=== PATIENT | female | born 1940 | race Caucasian/White ===

== ENCOUNTER 2017-12-06 18:48 | Observation (INO) | payer OTHER, SELFPAY ==
[2017-12-06 18:49] VITALS: BP 158/106; PULSE 72; RESP 15; TEMP 36.5; O2SAT 99; BMI 20.5
[2017-12-06 18:51] VITALS: PULSE 69; RESP 16; O2SAT 99
--- NOTE | 2017-12-06 18:53 | ED.RN ---
RN CALLED FOR EKG, NO OLD EKGS IN MUSE
[2017-12-06 19:10] VITALS: O2SAT 100
[2017-12-06] MEDS: Aspirin 81 MG TAB.CHEW 324 MG PO (19:20)
[2017-12-06] MEDS: 0.9% Normal Saline 1,000 ML 150 ML IV (19:21)
[2017-12-06 19:44] LABS: Absolute Lymphocyte Count 2.22 X10^3/ul (0.83-4.51); Absolute Neutrophil Count 2.7 X10^3/uL (2.0-7.7); Basophil# 0.02 X10^3/uL; Basophil% 0.3 % (0-1); Eosinophil# 0.12 X10^3/uL; Eosinophils% 2.1 % (0-5); Hematocrit 38.8 % (37-47); Hemoglobin 12.8 g/dl (12.0-15.0); Lymphocyte # 2.22 X10^3/ul (4.0); Lymphocyte % 38.5 % (19-41); Mean Corpuscular Hgb 31.9 pg (27.0-32.0); Mean Corpuscular Volume 96.8 fL (81-99); Mean Platelet Vol. 11.1 fl (6.2-12.0); Monocyte% 12.2 % (0-10); Neutrophil % 46.9 % (47-70); Platelet Count 211 K/mm3 (150-450); RBC Distribution Width CV 12.8 % (11.6-14.6); RBC Distribution Width SD 44.3 fl (35.1-43.9); Red Blood Count 4.01 M/mm3 (4.2-5.4); White Blood Count 5.8 K/mm3 (4.4-11.0)
[2017-12-06 19:45] LABS: Anion Gap 6 (5-15); BUN 25 mg/dL (7-18); BUN/Creat Ratio 27.7 RATIO (10-20); Calcium,Total 8.8 mg/dL (8.5-10.1); Chloride 100 mmol/L (98-107); EST Glomerular Filtration Rate 65 mL/min (>60); Est Glom Filt Rate - Afr Amer 78 mL/min (>60); Estimated Creatinine Clearance 49.12 ml/min; Glucose 91 mg/dL (74-106); Potassium 3.8 mmol/L (3.5-5.1); Sodium Level 138 mmol/L (136-145)
[2017-12-06 19:48] LABS: POSITIVE COUNT NO; POSITIVE DIFFERENTIAL NO; POSITIVE MORPHOLOGY NO
[2017-12-06 19:53] VITALS: BMI 20.5
--- NOTE | 2017-12-06 19:57 | ED.VISSUMM ---
- ER Visit Summary Date of Service: 12/06/17 Chief Complaint: Chest pain History of Present Illness: The patient is a [address] Sharma. She reports that she has chest pain that began approximately 2 months ago. It is an intermittent pain that is brought on by activity and resolves with rest. She uses mowing the yard as an example in her pain. She describes it as substernal pressure with radiation to her left arm. The pain is severe at worst and she is pain-free currently. She reports that associated with diaphoresis, shortness of breath, and lightheadedness. There is no associated nausea. Physical Examination: Vitals: Stable. Afebrile. General: Well-nourished and well-developed. Head: Normocephalic atraumatic. Neck: Supple, no lymphadenopathy. No JVD. Nontender. Cardiovascular: Regular rate and rhythm. 2 out of 6 systolic murmur. Respiratory: No respiratory distress. Clear to auscultation bilaterally. Abdominal: Soft, nontender, nondistended, normal bowel sounds. No guarding, rebound, or peritoneal signs. Back: Nontender. Extremities: Nontender, no edema. Skin: Normal color, no rash. Neurologic: Alert and oriented ?3. Cranial nerves II through XII are intact. Normal strength and sensation. Psych: Normal affect. Test Results: EKG is sinus at 68 with no acute changes. Troponins negative. Chem-7 is more for BUN of 25 and BUN/creatinine ratio 27.7. CBC is more for 7 neutrophils 47 monocytes of 12. Chest x-ray shows chronic changes and no acute disease. Emergency Department Course and Treatment: Patient was treated with aspirin. She is resting comfortably and has had no chest pain while here. Treatment Plan: Patient was discussed with Dr. Magana. She will be admitted to the hospital for further relation and treatment. Disposition: Admitted in stable condition. Impression: 1. Chest pain. 2. MORENA score of 2. This note was generated with [employer]* dictation software. It may contain incorrect words, spelling, and punctuation that were not noted in review of the chart prior to signing ED Disposition - Plan for ED Patient: Disposition: Acute Care Hospital [facility] Chief Complaint: Chest Pain
--- NOTE | 2017-12-06 20:18 | NURSING ---
Called [facility] charge nursejustin to send patient to the floor.
--- NOTE | 2017-12-06 20:35 | PCM.HP.STD ---
Problem List (1) Atypical chest pain Status: Acute (2) Hypertension Status: Chronic History of Present Illness Date of Admission: 12/06/17 Chief Complaint: Chest pain for last 2 months The patient is a 77 year old F with history of hypertension, on HCTZ came to ER with progressively getting worse chest pain associated with shortness of breath for last 2 months. She describes chest pain as midsternal, feeling like heaviness/tightness with radiation to left arm, mainly precipitated by exertion like mowing lawn and relieved with rest. She sometimes also get chest pain at rest like 3 days ago. Chest pain is getting more frequent and lasting longer last last 2 months but no incident is lasted more than 5 minutes. She also complained of diaphoresis, palpitation and mild dizziness during episodes. She had a stress and many years ago and was negative. She never had a heart cath, denies coronary artery disease, arrhythmia or missed heartbeat. In ED EKG shows normal sinus rhythm at 68 bpm with T inversion in V1. She has history of coronary artery disease in both parents who developed after 55 years of age. [] Past Medical History Past Medical History (Chronic Problems): Chronic Problems Hypertension (Chronic) Allergies No Known Allergies Allergy (Verified 12/06/17 18:49) Home Medications: Ambulatory Orders Medication Instructions Recorded ALPRAZolam [Xanax] 0.125 mg PO PRN PRN 12/06/17 Hydrochlorothiazide [Hctz] 12.5 mg PO DAILY 12/06/17 Smoking Status: Never smoker Review of Systems Constitutional: Denies: Chills, Fever, Weight Change HEENT: Denies: Head Aches, Sinus Congestion, Sinus Drainage Cardiovascular: Reports: Chest Pain, Chest Pressure, Palpitations Respiratory: Reports: Shortness of breath upon exertion. Denies: Cough, Shortness of breath at rest, Sputum production Gastrointestinal: Denies: Abdominal Pain, Nausea, Vomiting Genitourinary: Denies: Dysuria Musculoskeletal: Denies: Joint Pain, Joint Tenderness Skin: Denies: Rash, Wounds Neurological: Denies: Numbness, Tingling, Focal weakness Psychiatric: Reports: Anxiety. Denies: Depression, Homicidal Ideations, Suicidal Ideations Hematologic/ Lymphatic: Denies: Easy Bruising, Easy Bleeding VTE Information - Inpt Only VTE Present on Admission: No VTE Mechan Device Prophylaxis: None VTE Pharm Prophylaxis ordered?: Yes Patient Problems: Active and Suspected Problems Atypical chest pain (Acute) - Physical Exam General: Alert, Oriented x3, Cooperative HEENT: Atraumatic, PERRLA, EOMI, Normocephalic Neck: Supple, No JVD, Negative Carotid Bruits Lungs: Clear to auscultation, Normal air movement, No rhonchi, No wheeze, No rales Cardiovascular: Regular rate, Regular Rhythm, Normal S1, Normal S2, No murmurs Abdomen: Bowel Sounds Present, Soft, Non Tender, Non-Distended Extremities: Capillary Refill Less than 3 Seconds, Edema Skin: No rashes, No breakdown Musculoskeletal: No Tenderness to Palpation of Joints or Extremities Neurological: Cranial nerves II-XII grossly intact Psych/Mental Status: Normal Affect, Appropriate Vital Signs Temp Pulse Resp BP Pulse Ox 97.7 F L 69 16 158/106 H 100 12/06/17 18:49 12/06/17 18:51 12/06/17 18:51 12/06/17 18:49 12/06/17 19:10 Assessment/Plan All Active Problems Atypical chest pain (Acute) he patient is a 77 year old F with history of hypertension, on HCTZ came to ER with progressively getting worse chest pain associated with shortness of breath for last 2 months. She describes chest pain as midsternal, feeling like heaviness/tightness with radiation to left arm, mainly precipitated by exertion like mowing lawn and relieved with rest. She sometimes also get chest pain at rest like 3 days ago. Chest pain is getting more frequent and lasting longer last last 2 months but no incident is lasted more than 5 minutes. She also complained of diaphoresis, palpitation and mild dizziness during episodes. She had a stress and many years ago and was negative. She never had a heart cath, denies coronary artery disease, arrhythmia or missed heartbeat. In ED EKG shows normal sinus rhythm at 68 bpm with T inversion in V1. First troponin is negative. She has history of coronary artery disease in both parents who developed after 55 years of age. 1. Atypical chest pain with concern of angina pectoris: Patient is being admitted on PCU. MORENA score 2 out of 7. on ACS protocol with serial troponin enzymes and EKG. Fasting profile tomorrow a.m. Started on aspirin and a statin and lisinopril. Heart rate is controlled. If troponins negative, patient can go for treadmill nuclear stress test and patient informed that she can walk good on treadmill. If troponins are positive, consult cardiology for possibility of cardiac cath. 2. Hypertension: Patient is on HCTZ. Blood pressure still elevated 158/106, started on lisinopril 5 mg daily. Hold HCTZ if patient goes for cardiac cath. 3. Mild anxiety: Continue home dose of Xanax. DVT prophylaxis: On Lovenox 40 mg subcu daily. [] Laboratory Results 12/06/17 18:58: WBC 5.8, RBC 4.01 L, Hgb 12.8, Hct 38.8, MCV 96.8, MCH 31.9, MCHC 33.0, RDW 12.8, RDW Differential 44.3 H, Plt Count 211, MPV 11.1, Immature Gran % (Auto) 0.000, Neut % (Auto) 46.9 L, Lymph % (Auto) 38.5, [place] % (Auto) 12.2 H, Eos % (Auto) 2.1, Baso % (Auto) 0.3, Absolute Neuts (auto) 2.7, Absolute Lymphs (auto) 2.22, Total Counted Not Reportable 12/06/17 18:58: Sodium 138, Potassium 3.8, Chloride 100, Carbon Dioxide 32.0, Anion Gap 6, BUN 25 H, Creatinine 0.90, Estim Creat Clear Calc 49.12, Est GFR (MDRD) Af Amer 78, Est GFR (MDRD) Non-Af 65, BUN/Creatinine Ratio 27.7 H, Glucose 91, Calcium 8.8, Troponin I < 0.015 Clinical Impression(s) from Imaging Studies Chest X-Ray 12/06/17 19:10 IMPRESSION: Degenerative changes, as described above. No demonstrated acute cardiopulmonary process. Code Visit OBSV E&M: 81350 Initial observation care L3
[2017-12-06 21:00] VITALS: BP 158/82; PULSE 59; PULSE 60; RESP 18; TEMP 36.7; O2SAT 100
[2017-12-06 21:42] VITALS: BMI 21.1
[2017-12-06] MEDS: Atorvastatin Calcium 40 MG Tablet PO (22:22)
[2017-12-06] MEDS: Lisinopril 5 MG Tablet PO (22:22)
[2017-12-06] MEDS: 0.9% Normal Saline 1,000 ML 50 ML IV (22:22)
[2017-12-06] MEDS: 0.9% NaCl Peripheral Flush Adult/Peds IV (22:23)
--- NOTE | 2017-12-06 22:53 | PCM.CONS.C ---
Reason for Consult Date of Consultation: 12/06/17 Reason for Consultation: Chest tightness. History of Present Illness: The patient is a 77 year old F with no previous cardiac history other than mild hypertension who says that she has really not felt well for approximately 6-8 months. However over the last 2 months she has noticed that she has been getting increasingly tired. She is also noticed that whenever she mows her lawn she feels fatigued and she gets some chest discomfort. She describes this chest discomfort as a heaviness radiating to the left side of her arm as well as her left shoulder. She has had a few of these episodes over the last few days when she was at rest. She saw her primary physician who ordered an echocardiogram and was told that she had 2 mildly leaky valves. They suggested that she see a altitude chamber technician and she was scheduled to see the altitude chamber technician at the [facility] but on hearing the story they directed her to the hospital. She has not had any chest pain since she has been in the hospital. She says a day ago she was sitting at her kitchen table and she felt like she was going to pass out. She has not had any palpitations paroxysmal nocturnal dyspnea or pedal edema. [] Past Medical History Allergies/Adverse Reactions: Allergies No Known Allergies Allergy (Verified 12/06/17 18:49) Home Medications: Ambulatory Orders Medication Instructions Recorded ALPRAZolam [Xanax] 0.125 mg PO PRN PRN 12/06/17 Hydrochlorothiazide [Hctz] 12.5 mg PO DAILY 12/06/17 Past Medical History (Chronic Problems): Chronic Problems Hypertension (Chronic) Smoking Status: Never smoker Alcohol: None Drugs: None Review of Systems - Review of Systems General: Reports: Fatigue. Denies: Fever, Night Sweats Cardiovascular: Reports: Chest Discomfort, Chest Discomfort at Rest, Chest Discomfort with Exertion, Shortness of Breath with Exertion, Near Syncope. Denies: Shortness of Breath, Orthopnea, PND, Peripheral Edema, Palpitations, Lightheadedness, Dizziness, Syncope Respiratory: Denies: Cough, Sputum Production, Hemoptysis Gastrointestinal: Denies: Hematemesis, Hematochezia, Melena Genitourinary: Denies: Dysuria, Hematuria Skin: Denies: Rash Psychiatric: Reports: Anxiety Subjectve: Pleasant lady in no apparent distress lying in bed Objective: Vital Signs Temp Pulse Resp BP Pulse Ox 98.1 F 60 18 158/82 H 100 12/06/17 21:00 12/06/17 21:00 12/06/17 21:00 12/06/17 21:00 12/06/17 21:00 Oxygen Flow Rate (L/min) 2 Oxygen Delivery Method Room Air Weight: 126 lb 12.253 oz Body Mass Index (BMI) 21.1 General: Awake, Alert, Oriented x 3 HEENT: PERRL, EOMI, Sclera Non Icteric Neck: Supple, Good ROM, No Lymph Node Enlargement Lungs: Clear to auscultation Cardiovascular: Regular Rhythm, Normal S1, Normal S2, No Murmurs, No Rubs, No Gallops Vascular: No Carotid Bruits, Normal Femoral Pulses, Normal Radial Pulses, Normal Dorsalis Pedal Pulse, Normal Posterior Tibial Pulses Abdomen: Bowel Sounds Present, Soft, Non Tender, No HSM, No Organomegaly Extremities: No Cyanosis, No Clubbing, No edema Musculoskeletal: No Erythema Neurological: No Focal Motor or Sensory Deficit Rhythm: EKG: Normal sinus rhythm with a rate of 59 bpm and no acute changes Assessment/Plan 1. Unstable angina The patient presents with a history very concerning for unstable angina. The pain has been increasing in frequency and duration and she is also had some breast discomfort. Though her EKG appears to be unremarkable and her cardiac enzymes are normal I would strongly recommend that we pursue an invasive approach with a cardiac catheterization. This would be preferable to a stress test as she already exercises and gets this discomfort on a frequent basis when she is mowing her lawn. She is mildly hypertensive and this could potentially could be responsible for some of her symptomatology but the duration of her symptomatology is concerning as well as the rest discomfort and had near syncopal spell. I have explained the above to the family the risk benefits and alternatives they understand and agreed to proceed. Would recommend aspirin 81 mg a day Will load with Plavix 300 mg tonight and 75 mg daily Start low-dose beta-luis Start high intensity statin 2. Hypertension She does appear to be hypertensive and is already on a diuretic. Will recommend to the addition of the lisinopril 5 mg a day as well as the beta-luis. Thank you for allowing me to participate in the care of your patient. Please don't hesitate to call if any issues arise
[2017-12-06 23:00] VITALS: PULSE 63
[2017-12-06 23:25] VITALS: PULSE 62
[2017-12-06] MEDS: Metoprolol Tartrate 25 MG Tablet PO (23:25)
[2017-12-06] MEDS: Clopidogrel Bisulfate 300 MG Tablet PO (23:25)
[2017-12-07] VITALS (17 sets, daily range): BP systolic 95–135; BP diastolic 52–74; PULSE 39–57; RESP 13–17; TEMP 36.5–37.6; O2SAT 97–100
[2017-12-07 05:17] LABS: Bacteria 0 SEEN /hpf (None Seen); Mucous, Urine 0 SEEN /hpf (<or=2+); Red Blood Cells-Urine 0 SEEN /hpf (0-5); White Blood Cells 0 SEEN /hpf (0-5)
[2017-12-07 05:19] LABS: Color, Urine Straw (Yellow); Glucose, Dipstick Normal (Normal); Ketone-Dipstick Negative (Negative); Leukocyte Esterase-Dipstick Negative /ul (Negative); Nitrite-Dipstick Negative (Negative); Occult Blood-Urine 10 /ul (Negative); Protein-Dipstick Negative (Negative); Specific Gravity, Urine 1.005 (1.002-1.030); Urine Bilirubin Dipstick Negative (Negative); Urine Clarity Clear (Clear); Urine Urobilinogen Normal (Normal)
[2017-12-07 05:27] LABS: Squamous Epithelial Cells - UA 0-5 SEEN /hpf (5-10)
[2017-12-07 05:47] LABS: Absolute Lymphocyte Count 1.73 X10^3/ul (0.83-4.51); Absolute Neutrophil Count 2.3 X10^3/uL (2.0-7.7); Basophil# 0.02 X10^3/uL; Basophil% 0.4 % (0-1); Eosinophil# 0.13 X10^3/uL; Eosinophils% 2.9 % (0-5); Hematocrit 39.6 % (37-47); Hemoglobin 12.9 g/dl (12.0-15.0); Lymphocyte # 1.73 X10^3/ul (4.0); Lymphocyte % 38.3 % (19-41); Mean Corp Hgb Conc 32.6 g/gl (32-36); Mean Corpuscular Hgb 31.3 pg (27.0-32.0); Mean Corpuscular Volume 96.1 fL (81-99); Mean Platelet Vol. 10.6 fl (6.2-12.0); Monocyte# 0.39 X10^3/uL; Monocyte% 8.6 % (0-10); Neutrophil # 2.25 X10^3/uL (2.7-7.7); Neutrophil % 49.8 % (47-70); Platelet Count 204 K/mm3 (150-450); RBC Distribution Width CV 12.9 % (11.6-14.6); Red Blood Count 4.12 M/mm3 (4.2-5.4); White Blood Count 4.5 K/mm3 (4.4-11.0)
[2017-12-07 05:51] LABS: POSITIVE COUNT NO; POSITIVE DIFFERENTIAL NO; POSITIVE MORPHOLOGY NO
[2017-12-07 05:54] LABS: Prothrombin Time (Protime)PT. 13.5 SECONDS (11.7-14.9)
[2017-12-07 05:55] LABS: Partial Thromboplast Time 27.3 Seconds (24.1-36.2)
[2017-12-07 06:16] LABS: Anion Gap 9 (5-15); BNP,B-Type NATRIURETIC PEPTIDE 134.1 pg/mL (0-100); BUN 19 mg/dL (7-18); BUN/Creat Ratio 24.1 RATIO (10-20); Calcium,Total 8.4 mg/dL (8.5-10.1); Chloride 106 mmol/L (98-107); Cholesterol 194 mg/dL (200); Creatinine, Serum 0.79 mg/dL (0.55-1.02); EST Glomerular Filtration Rate 76 mL/min (>60); Est Glom Filt Rate - Afr Amer 92 mL/min (>60); Estimated Creatinine Clearance 43.74 ml/min; Glucose 84 mg/dL (74-106); High Density Lipoprotein 62 mg/dL; Potassium 3.8 mmol/L (3.5-5.1); Sodium Level 143 mmol/L (136-145); Thyroid Stim Hormone (TSH) 4.49 uIU/mL (0.358-3.74); Triglycerides 76 mg/dL; Very Low Density Lipoprotein 15 mg/dL (5-40)
[2017-12-07] MEDS: Lisinopril 5 MG Tablet PO (06:29)
[2017-12-07] MEDS: Aspirin E.C. 81 MG Tablet PO (06:30)
[2017-12-07] MEDS: Clopidogrel Bisulfate 75 MG Tablet PO (06:30)
--- NOTE | 2017-12-07 08:02 | PCM.PN.CARD ---
Subjectve: Patient seen and evaluated. Objective: Vital Signs Temp Pulse Resp BP Pulse Ox 98.8 F 52 L 16 135/74 H 99 12/07/17 06:25 12/07/17 07:15 12/07/17 06:25 12/07/17 06:25 12/07/17 06:25 Oxygen Flow Rate (L/min) 2 Oxygen Delivery Method Room Air Weight: 126 lb 12.253 oz Body Mass Index (BMI) 21.1 Intake and Output for Last 24 Hours 12/05/17 12/06/17 12/07/17 23:59 23:59 23:59 Intake Total 411 / 411 Balance 411 / 411 General: Awake, Alert, Oriented x 3 HEENT: PERRL, EOMI, Sclera Non Icteric Neck: Supple, Good ROM, No Lymph Node Enlargement Lungs: Clear to auscultation Cardiovascular: Regular Rhythm, Normal S1, Normal S2, No Murmurs, No Rubs, No Gallops Vascular: No Carotid Bruits, Normal Femoral Pulses, Normal Radial Pulses, Normal Dorsalis Pedal Pulse, Normal Posterior Tibial Pulses Abdomen: Bowel Sounds Present, Soft, Non Tender, No HSM, No Organomegaly Extremities: No Cyanosis, No Clubbing, No edema Neurological: No Focal Motor or Sensory Deficit 12/06/17 22:30: Troponin I < 0.015 12/06/17 23:35: Urine Color Straw, Urine Clarity Clear, Urine pH 7.0, Ur Specific [place] 1.005, Urine Protein Negative, Urine Glucose (UA) Normal, Urine Ketones Negative, Urine Occult Blood 10 H, Urine Nitrite Negative, Urine Bilirubin Negative, Urine Urobilinogen Normal, Ur Leukocyte Esterase Negative, Urine RBC 0 SEEN, Urine WBC 0 SEEN 12/07/17 00:34: Troponin I < 0.015 12/07/17 05:25: Sodium 143, Potassium 3.8, Chloride 106, Carbon Dioxide 28.0, Anion Gap 9, BUN 19 H, Creatinine 0.79, Est GFR (MDRD) Af Amer 92, Est GFR (MDRD) Non-Af 76, BUN/Creatinine Ratio 24.1 H, Glucose 84, Calcium 8.4 L, Triglycerides 76, Cholesterol 194, LDL Cholesterol 117, VLDL Cholesterol 15, HDL Cholesterol 62 12/07/17 05:25: B-Natriuretic Peptide 134.1 H 12/07/17 05:25: WBC 4.5, RBC 4.12 L, Hgb 12.9, Hct 39.6, MCV 96.1, MCH 31.3, MCHC 32.6, RDW 12.9, RDW Differential 45.0 H, Plt Count 204, MPV 10.6, Immature Gran % (Auto) 0.000, Neut % (Auto) 49.8, Lymph % (Auto) 38.3, [place] % (Auto) 8.6, Eos % (Auto) 2.9, Baso % (Auto) 0.4, Absolute Neuts (auto) 2.3, Total Counted Not Reportable 12/07/17 05:25: PT 13.5, INR 1.0, APTT 27.3 Rhythm: EKG: ECHO: Stress Test: Cardiac Cath: PCI: CT Surgery: Holter monitor: EPS: PPM: CXR: Chest CT Scan: Medical Necessity - Tobacco Use Smoking Status: Never smoker Assessment/Plan 1. Unstable angina The patient presents with a history very concerning for unstable angina. Patient underwent cardiac catheterization which demonstrated normal coronary arteries and preserved ejection fraction. It is therefore unlikely that her chest pain was secondary to obstructive coronary disease. In a difficult etiologies can be sought as an outpatient. 2. Hypertension She does appear to be hypertensive and is already on a diuretic. Will recommend to the addition of the lisinopril 5 mg a day . Thank you for allowing me to participate in the care of your patient. Please don't hesitate to call if any issues arise
--- NOTE | 2017-12-07 13:13 | PCM.DC ---
- Discharge Diagnoses Current Active Problems: Current Active and Chronic Problems Atypical chest pain (Acute) Hypertension (Chronic) You will use the following diet at home:: Cardiac Your food should be the consistency of: Regular Your liquids should be the consistency of: Regular/Thin Discharge Activity: Return to Normal Activity Call your doctor if you observe: Shortness of breath, Dizziness, Fainting spells, Chest pain, Increased palpitations (irregular heartbeat) Allergies/Adverse Reactions: Allergies No Known Allergies Allergy (Verified 12/06/17 18:49) Medications to take at Discharge ALPRAZolam [Xanax] 0.125 mg PO PRN PRN 12/06/17 Hydrochlorothiazide [Hctz] 12.5 mg PO DAILY 12/06/17 Aspirin E.C. [Ecotrin] 81 mg PO DAILY@0800 #30 tab 12/07/17 Atorvastatin Calcium [Lipitor] 40 mg PO QHS #30 tab 12/07/17 Lisinopril [Zestril] 5 mg PO DAILY #30 tab 12/07/17 The following prescriptions were given: Aspirin E.C. [Ecotrin] 81 mg PO DAILY@0800 #30 tab Atorvastatin Calcium [Lipitor] 40 mg PO QHS #30 tab Lisinopril [Zestril] 5 mg PO DAILY #30 tab Primary Care Physician: Darshan Sharma DO [Primary Care Provider] - Please follow up with your Primary Care Physician in: in 3-5 days Test Results: Test results from this visit will be discussed in further detail at your follow-up appointment, if applicable.
--- NOTE | 2017-12-07 13:14 | PCM.DC.SUM ---
Discharge Date and Diagnosis - Problem List Patient Problems: Active and Suspected Problems Atypical chest pain (Acute) Date of Admission: 12/06/17 Date of Discharge: 12/07/17 - Primary Discharge Diagnosis Active and Suspected Problems Atypical chest pain (Acute) - Secondary Discharge Diagnosis Chronic Problems Hypertension (Chronic) Hospital Course and Treatment Imaging Results: None Consults: Cardiology Procedures: Cardiac catheterization - CORONARY ANGIOGRAPHY DOMINANCE: Right Dominant LEFT HEART ASSESSMENT Left Ventricular Ejection Fraction: by LV Gram 60 % Normal Left Ventricular systolic function Normal Left Ventricular systolic function LEFT MAIN: Angiographically normal LEFT ANTERIOR DECENDING ARTERY: Angiographically normal CIRCUMFLEX ARTERY: Angiographically normal RIGHT CORONARY ARTERY: Angiographically normal Summary of Care Provided: HPI: The patient is a 77 year old F with history of hypertension, on HCTZ came to ER with progressively getting worse chest pain associated with shortness of breath for last 2 months. She describes chest pain as midsternal, feeling like heaviness/tightness with radiation to left arm, mainly precipitated by exertion like mowing lawn and relieved with rest. She sometimes also get chest pain at rest like 3 days ago. Chest pain is getting more frequent and lasting longer last last 2 months but no incident is lasted more than 5 minutes. She also complained of diaphoresis, palpitation and mild dizziness during episodes. She had a stress and many years ago and was negative. She never had a heart cath, denies coronary artery disease, arrhythmia or missed heartbeat. In ED EKG shows normal sinus rhythm at 68 bpm with T inversion in V1. She has history of coronary artery disease in both parents who developed after 55 years of age. Vital Signs - 24 hr Temp Pulse Resp BP Pulse Ox 12/07/17 12:15 99.5 F H 53 L 16 95/58 L 99 12/07/17 11:15 98.0 F 53 L 17 126/69 H 98 12/07/17 10:58 57 L 12/07/17 10:15 98.0 F 53 L 17 126/69 H 98 12/07/17 09:45 97.8 F 48 L 16 118/59 L 98 12/07/17 09:33 39 L 12/07/17 09:15 97.7 F L 44 L 15 112/62 97 12/07/17 09:00 97.9 F 47 L 13 112/68 98 12/07/17 08:44 98.0 F 46 L 14 124/60 H 99 12/07/17 08:30 97.8 F 45 L 15 112/63 100 12/07/17 08:15 97.7 F L 51 L 14 115/68 98 12/07/17 07:15 52 L 12/07/17 06:25 98.8 F 48 L 16 135/74 H 99 12/07/17 03:00 98 F 50 L 16 113/69 98 12/06/17 23:25 62 12/06/17 23:00 63 12/06/17 21:00 98.1 F 59 L 18 158/82 H 100 12/06/17 19:10 100 12/06/17 18:51 69 16 99 12/06/17 18:49 97.7 F L 72 15 158/106 H 99 General: Alert, Oriented x3, Cooperative, No apparent distress HEENT: Atraumatic, PERRLA, EOMI, Normocephalic Oral: Moist Mucosa Neck: Supple, No JVD Lungs: Clear to auscultation, Normal air movement, No rhonchi, No wheeze, No rales Cardiovascular: Regular rate, Regular Rhythm, Normal S1, Normal S2, No murmurs Abdomen: Soft, Non Tender, Non-Distended, No Hepato-splenomegaly Extremities: No edema, Capillary Refill Less than 3 Seconds Skin: No rashes, No breakdown Psych/Mental Status: Normal Affect, Appropriate Hospital Course: 1. Unstable angina - Initial work up was negative with a normal EKG and a normal troponin. Given her age, her HTN and her worsening symptomatology, she was taken for cardiac cath which was completely normal. We optimized her risk factors with adding lisinopril, ASA, and lipitor be she wanted to go home and given the normal cath she was discharged. Her CXR was also normal and she does not have a history of smoking or asthma. 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 She will need close outpatient follow-up which was discussed. Discharge Activity: Return to Normal Activity Call your doctor if you observe: Shortness of breath, Dizziness, Fainting spells, Chest pain, Increased palpitations (irregular heartbeat) Home Medications: Medications to take at Discharge ALPRAZolam [Xanax] 0.125 mg PO PRN PRN 12/06/17 Hydrochlorothiazide [Hctz] 12.5 mg PO DAILY 12/06/17 Aspirin E.C. [Ecotrin] 81 mg PO DAILY@0800 #30 tab 12/07/17 Atorvastatin Calcium [Lipitor] 40 mg PO QHS #30 tab 12/07/17 Lisinopril [Zestril] 5 mg PO DAILY #30 tab 12/07/17 Following Prescrptions Were Given to Patient: Aspirin E.C. [Ecotrin] 81 mg PO DAILY@0800 #30 tab Atorvastatin Calcium [Lipitor] 40 mg PO QHS #30 tab Lisinopril [Zestril] 5 mg PO DAILY #30 tab Primary Care Physician: Darshan Sharma DO [Primary Care Provider] - Please follow up with your Primary Care Physician in: in 3-5 days Disposition: Home Minutes spent on discharge:: 35 Patient Condition:: Good Medical Necessity - Tobacco Use Smoking Status: Never smoker Meaningful Use Info Meaningful Use Diagnoses (Choose all that apply): None applicable Code Visit Inpatient E&M: 66356 Disch Hosp
--- NOTE | 2017-12-07 13:37 | NURSING ---
Ambulated patient to and around hallway following bedrest without complication. Upon returning to the room patient became very dizzy. VSS. DELEON notified.
--- NOTE | 2017-12-07 14:00 | CHAPLAIN ---
Type of Pastoral Visit _x__ Initial Visit ___ Follow-up Visit ___ On-call Visit ___ General Patient Visit ___ Spiritual Assessment ___ Family Conference ___ Bereavement ___ Rapid Response ___ Code Blue ___ Other (describe below) Pastoral Care Referral From _x__ Patient ___ Family ___ Nurse ___ Physician ___ Cook Fish Eggs ___ Hydraulic Blocker ___ Other (describe below) Sacrament/Intervention _x__ Active listening ___ Anointing ___ Quaker ___ Bereavement ___ Communion ___ Gisselle exploration ___ ___ Life review _x__ Prayer ___ Reconciliation ___ Sacrament of Sick _x__ Supportive presence ___ Wedding ___ Other (describe below) Pastoral Comments patient says she has had good news so far among the testing done; spouse and daughter are with pt; pt says that a prayer would be appreciated
== END 2017-12-07 08:01 | disposition home or self-care (01) ==
LOC: ED 19:42 → PCU 20:15
PROVIDERS: Internal Medicine Cardiovascular Disease; Admitting Provider Internal Medicine; Emergency Provider Emergency Medicine; Family Provider Family Medicine; PCP Family Medicine; Visit Provider Family Medicine
DX: I20.0 Unstable angina (principal); I10 Essential (primary) hypertension; R06.02 Shortness of breath; R42 Dizziness and giddiness; Z82.49 Family history of ischemic heart disease and other diseases of the circulatory system; Z79.899 Other long term (current) drug therapy; F41.9 Anxiety disorder, unspecified
CPT/HCPCS: 36415; 71045; 80048; 80061; 81001; 83880; 84443; 84484; 85025; 85610; 85730; 93005; 93458; 96360; 96361; 99152; 99218; 99283; J7030; A4216; C1769; G0378; Q9967

== ENCOUNTER → 2019-07-02 09:42 | Outpatient (CLI) | payer OTHER, SELFPAY ==
[2019-07-02 08:45] VITALS: BMI 21.4
[2019-07-02 10:47] LABS: Thyroid Stim Hormone (TSH) 2.63 uIU/mL (0.358-3.74)
== END ==
PROVIDERS: PCP Family Medicine; Referring Provider Internal Medicine Cardiovascular Disease; Visit Provider Internal Medicine Cardiovascular Disease
DX: I10 Essential (primary) hypertension (principal)
CPT/HCPCS: 36415; 84443

== ENCOUNTER 2020-05-22 10:33 | Inpatient (IN) | payer OTHER, SELFPAY ==
[2019-07-02 08:45] VITALS: BMI 21.4
[2020-05-22] VITALS (12 sets, daily range): BP systolic 141–165; BP diastolic 73–89; PULSE 50–85; RESP 15–20; TEMP 36.1–36.7; O2SAT 97–100; BMI 21.9; BMI 21.2; BMI 21.3
[2020-05-22 10:56] LABS: Bedside Glucose 83 mg/dL (70-110)
--- NOTE | 2020-05-22 11:04 | ED.DCSUM_ITS ---
History of Present Illness Chief Complaint: Neuro S/Sx Informant: Patient, Family Narrative: 79-year-old female presenting with chief complaint of left-sided facial droop and slurred speech, as well as difficulty ambulating and stating that she leans to the left. Patient states that she thinks she might of had a stroke 2 weeks ago, and at that time she had had left-sided facial droop which was more pronounced as well as left arm weakness in addition to the slurred speech. The facial droop has improved she says as well as the slurred speech although she states she has trouble swallowing her food sometimes. She states it feels like it gets stuck in her throat. Patient states that when the initial symptoms started she had fallen and hurt her left ribs. Patient states that she was not previously evaluated for this. She has no history of stroke. She states she has a history of anxiety and hypertension as well as leaky heart valves. Prior similar symptoms: No - Past Medical History (1) Essential hypertension Status: Chronic Past Medical History - Allergies and Home Meds Allergies/Adverse Reactions: Allergies No Known Allergies Allergy (Verified 05/22/20 10:36) Past Medical History: - - Anxiety Surgical History: noncontributory Lives: Spouse/ Significant Other Smoking Status: Never smoker Alcohol: None Drugs: None Review of Systems General: Denies: Chills, Fever, Sweats Eyes: Denies: Visual changes - bilaterally, Diplopia ENT: Denies: Rhinorrhea, Sore throat Cardiovascular: Denies: Chest pain, Palpitations Respiratory: Reports: - - Left-sided rib pain. Denies: Dyspnea, Cough Gastrointestinal: Denies: Abdominal pain, Nausea Genitourinary: Denies: Dysuria, Hematuria Musculoskeletal: Denies: Myalgias, Arthralgias Skin: Denies: Rash, Abscess Neurological: Reports: Parasthesia - Left upper extremity and left face., Left- sided facial droop, leaning to the left when ambulating Psych: Denies: Depression, Anxiety Endocrine: Denies: Polyuria, Polydipsia Physical Exam Vital Signs/Narrative: Vital Signs Temp Pulse Resp BP Pulse Ox 05/22/20 10:36 97.5 F L 54 L 16 147/82 H 98 Inital Vital Signs reviewed: Yes General: Well nourished, Well developed Head: Normocephalic, Atraumatic Eyes: Perrl, EOMI ENT: Moist mucous membranes, No rhinorrhea Cardiovascular: Regular rate, Regular rhythm Respiratory: No distress, CTA bilaterally, - - Tenderness to palpation of left ribs in the anterior axillary line. No crepitance, deformity. Extremities: Nontender, No edema Skin: Normal color, No rash Neurological: Alert, Oriented x3, Left side facial droop, - - Mild slurred speech. NIH of 2. 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 No bleeding is seen. Chronic involutional changes of the brain. 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 No bleeding is seen. Chronic involutional changes of the brain. N.B. : The above information has been verbally conveyed by Nikko Bobby MD to ZIGGY Renteria, on 05/22/2020 11:54:49 (ET). Electronically Signed: Nikko Bobby MD at 11:51 EST Tel , Service support , Ribs w/Chest X-Ray 05/22/20 12:00 IMPRESSION: RIBS: Questionable nondisplaced fractures of the very anterior aspect of the left 10th and 11th ribs. No pneumothorax is seen. CHEST: No active pulmonary disease. Electronically Signed: Nikko Bobby MD at 13:18 EST Tel , Service support , Laboratory Data 05/22/20 05/22/20 05/22/20 10:52 11:10 11:10 WBC 6.5 RBC 3.97 L Hgb 12.6 Hct 38.8 MCV 97.7 MCH 31.7 MCHC 32.5 RDW Std Deviation 46.5 H RDW Coeff of Haim 12.9 Plt Count 252 MPV 10.7 Immature Gran % (Auto) 0.300 Neut % (Auto) 56.0 Lymph % (Auto) 26.3 Rogers % (Auto) 13.7 H Eos % (Auto) 3.2 Baso % (Auto) 0.5 Absolute Neuts (auto) 3.6 Absolute Lymphs (auto) 1.71 Nucleated RBC % 0 PT 12.1 INR 0.9 APTT 24.9 Sodium Potassium Chloride Carbon Dioxide Anion Gap BUN Creatinine Estim Creat Clear Calc Est GFR (MDRD) Af Amer Est GFR (MDRD) Non-Af BUN/Creatinine Ratio Glucose Calcium Troponin I POC Glucose 83 05/22/20 11:10 WBC RBC Hgb Hct MCV MCH MCHC RDW Std Deviation RDW Coeff of Haim Plt Count MPV Immature Gran % (Auto) Neut % (Auto) Lymph % (Auto) Rogers % (Auto) Eos % (Auto) Baso % (Auto) Absolute Neuts (auto) Absolute Lymphs (auto) Nucleated RBC % PT INR APTT Sodium 139 Potassium 4.0 Chloride 104 Carbon Dioxide 33.0 H Anion Gap 2 L BUN 26 H Creatinine 0.83 Estim Creat Clear Calc 53.14 Est GFR (MDRD) Af Amer 86 Est GFR (MDRD) Non-Af 71 BUN/Creatinine Ratio 31.3 H Glucose 88 Calcium 8.7 Troponin I < 0.015 POC Glucose - Rhythm Strip Rhythm Strip: Sinus Rhythm Rate: 51 - EKG Initial EKG Interpretation: No Acute Injury Pattern, Sinus Bradycardia - Medical Decision Making 79-year-old female presenting with strokelike symptoms after about 2 weeks of symptoms. She complains of left facial droop and slurred speech difficulty ambulating and leaning to the left as well as difficulty swallowing. Patient states this is actually improved over the last couple of weeks but since the symptoms have been persistent. Patient has no history of CVA a. Patient has no history of A. fib. Patient has hypertension and anxiety. Initially when had the earlier symptoms she had fallen and hurt her left ribs. Patient had EKG which shows a sinus bradycardia at 51 bpm without signs of ischemic change as interpreted by myself. Patient did have rib series given her left rib pain and there appears to be fractures of the 10th and 11th ribs that are nondisplaced as interpreted by myself. Radiology does agree. Patient CT brain shows subacute infarct in the right periventricular region. Patient passed swallow eval and was given aspirin. Slight dehydration patient's lab work is unremarkable. Patient was discussed with hospitalist to be admitted for neurologic consult as well as MRI. Patient stable on transfer to the floor. Impression: 1. CVA ED Disposition - Plan for ED Patient:
--- NOTE | 2020-05-22 11:06 | EKG12_ITS ---
Test Reason : Blood Pressure : / mmHG Vent. Rate : 051 BPM Atrial Rate : 051 BPM P-R Int : 158 ms QRS Dur : 082 ms QT Int : 442 ms P-R-T Axes : 073 028 033 degrees QTc Int : 407 ms Sinus bradycardia Otherwise normal ECG Confirmed by SHERLY DELEON, SIDNEY ([id number]), copy editor IGNACIA HO ([id number]) on 05/25/2020 8:16:22 AM Referred By: ROSALEE Confirmed By:SIDNEY DUBOIS MD
--- NOTE | 2020-05-22 11:06 | CT_ITS ---
We are attempting to reach an attending provider to discuss findings. An addendum with communication details will be sent when the communication is complete. STUDY: CT HEAD STROKE PROTOCOL W/O CONTRAST INJECTION REASON FOR EXAM: Female, 79 years old. Neuro symptoms, feels off balance, hypotensive. RADIATION DOSAGE (If Supplied By Facility): CTDIvol = ( ) mGy, DLP = ( ) mGycm TECHNIQUE: Transaxial CT imaging of the brain was performed without administration of intravenous contrast material. Individualized dose optimization techniques were used for this CT. COMPARISON: No relevant priors. FINDINGS: Normal soft tissue structures. Normal calvarium. There is mild cerebral atrophy with widening of the extra-axial spaces and ventricular dilatation. There are areas of decreased attenuation within the white matter tracts of the supratentorial brain, consistent with microvascular disease changes. Subacute in the right periventricular region. Normal brainstem. Normal cerebellum. There is no intracranial hemorrhage. There are no findings of an acute ischemic infarction. Normal visualized paranasal sinuses. 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 No bleeding is seen. Chronic involutional changes of the brain. Electronically Signed: Nikko Bobby MD at 11:51 EST Tel , Service support ,
[2020-05-22 11:24] LABS: Absolute Lymphocyte Count 1.71 X10^3/uL (0.83-4.51); Absolute Neutrophil Count 3.6 X10^3/uL (2.0-7.7); Basophil# 0.03 X10^3/uL; Basophil% 0.5 % (0-1); Eosinophil# 0.21 X10^3/uL; Eosinophils% 3.2 % (0-5); Hematocrit 38.8 % (37-47); Hemoglobin 12.6 g/dL (12.0-15.0); Lymphocyte # 1.71 X10^3/ul (4.0); Lymphocyte % 26.3 % (19-41); Mean Corp Hgb Conc 32.5 g/dL (32-36); Mean Corpuscular Hgb 31.7 pg (27.0-32.0); Mean Corpuscular Volume 97.7 fL (81-99); Mean Platelet Vol. 10.7 fl (6.2-12.0); Monocyte# 0.89 X10^3/uL; Monocyte% 13.7 % (0-10); NRBC Flagged by Analyzer 0 % (0-5); Neutrophil # 3.63 X10^3/uL (2.7-7.7); Platelet Count 252 K/mm3 (150-450); RBC Distribution Width CV 12.9 % (11.6-14.6); RBC Distribution Width SD 46.5 fl (35.1-43.9); Red Blood Count 3.97 M/mm3 (4.2-5.4); White Blood Count 6.5 K/mm3 (4.4-11.0)
[2020-05-22 11:34] LABS: International Normalized Ratio 0.9; Prothrombin Time (Protime)PT. 12.1 SECONDS (11.7-14.9)
[2020-05-22 11:35] LABS: Partial Thromboplast Time 24.9 Seconds (24.1-36.2)
[2020-05-22 11:41] LABS: Anion Gap 2 (5-15); BUN 26 mg/dL (7-18); BUN/Creat Ratio 31.3 RATIO (10-20); Calcium,Total 8.7 mg/dL (8.5-10.1); Chloride 104 mmol/L (98-107); Creatinine, Serum 0.83 mg/dL (0.55-1.02); EST Glomerular Filtration Rate 71 mL/min (>60); Est Glom Filt Rate - Afr Amer 86 mL/min (>60); Estimated Creatinine Clearance 53.14 ml/min; Glucose 88 mg/dL (74-106); Sodium Level 139 mmol/L (136-145)
--- NOTE | 2020-05-22 12:00 | RAD_ITS ---
STUDY: X-RAY - UNILATERAL RIBS ( LEFT ) WITH CHEST REASON FOR EXAM: Female, 79 years old. Fell almost 2 weeks ago, left anterior rib pain under the breast TECHNIQUE - RIBS: 2 view(s) of the ribs. TECHNIQUE - CHEST: Single frontal view of the chest. COMPARISON: None. FINDINGS - RIBS: Questionable nondisplaced fracture of the very anterior aspect of the left 10th and 11th ribs. FINDINGS - CHEST: Small granulomas in the left midlung zone. No evidence of pneumothorax. No focal infiltrate is seen. There is no demonstrated pleural abnormality. Normal size heart. Normal mediastinum and guille. Normal visualized pulmonary arteries. There is atherosclerotic tortuosity of the aortic arch and descending thoracic aorta. Normal visualized thoracic spine. Side plate and screws in the proximal right humerus. There is no demonstrated abnormality of the visualized soft tissue structures of the upper abdomen. RAD/Ribs Uni Min 3V w/PA Chest IMPRESSION: RIBS: Questionable nondisplaced fractures of the very anterior aspect of the left 10th and 11th ribs. No pneumothorax is seen. CHEST: No active pulmonary disease. Electronically Signed: Nikko Bobby MD at 13:18 EST Tel , Service support ,
[2020-05-22] MEDS: Aspirin 81 MG TAB.CHEW 324 MG PO (13:10)
--- NOTE | 2020-05-22 13:52 | ECHOD_ITS ---
Reason For Study: TIA/CVA Procedure This was a 2D Doppler, Color Flow transthoracic echocardiogram. Contrast injection was performed. Exam performed portable in patient room. Left Ventricle Normal LV size. Left ventricular systolic function is normal. The estimated ejection fraction is 60 %. Stage 1 diastolic dysfunction. No regional wall motion abnormalities noted. Right Ventricle Normal RV size. Normal systolic function. Atria Normal left atrium. Normal right atrium. Bubble contrast study negative for right to left interatrial shunt. Mitral Valve Normal mitral valve. Tricuspid Valve Normal tricuspid valve. Mild (1+) tricuspid valve insufficiency. Pulmonary artery systolic pressure is 32 mmHg. Aortic Valve Normal aortic valve. Trisinus/trileaflet aortic valve. Pulmonic Valve Normal pulmonic valve. Great Vessels Normal aortic root. The pulmonary artery is normal size. Normal inferior vena cava. Pericardium/Pleural No pericardial effusion. Medication Performed a rapid injection of agitated mix of 9 cc saline and 1cc air to assess for atrial septal defect. MMode/2D Measurements & Calculations LVIDd: 4.5 cm IVSd: 1.1 cm LA dimension: 3.7 cm LVIDs: 2.3 cm LVPWd: 0.93 cm FS: 48.2 % LAV(MOD-bp): 56.7 ml LA A4 area: 18.7 cm2 RA A4 area: 15.5 cm2 LAV(MOD-bp) Indexed: 33.4 ml/m2 LAV(MOD-sp2): 54.4 ml LAV(MOD-sp4): 56.5 ml Time Measurements MV dec time: 0.24 sec Doppler Measurements & Calculations MV E max vicente: 67.7 cm/sec Lat Peak E' Vicente: 7.9 cm/sec Med Peak E' Vicente: 7.7 cm/sec MV A max vicente: 68.6 cm/sec E/E' lat: 8.6 E/E' med: 8.8 MV E/A: 0.99 MV V2 max: 75.1 cm/sec MV P1/2t max vicente: 75.1 cm/sec Ao V2 max: 139.5 cm/sec MV max P.3 mmHg MV P1/2t: 75.6 msec Ao max P.8 mmHg MV V2 mean: 42.1 cm/sec MV dec slope: 290.7 cm/sec2 MV mean P.82 mmHg MV V2 VTI: 24.6 cm MVA(P1/2t): 2.9 cm2 LV V1 max: 118.6 cm/sec PA V2 max: 130.0 cm/sec TR max vicente: 273.0 cm/sec LV V1 max P.6 mmHg TR max P.8 mmHg Interpretation Summary Normal LV size. Left ventricular systolic function is normal. The estimated ejection fraction is 60 %. Stage 1 diastolic dysfunction. Bubble contrast study negative for right to left interatrial shunt. Mild (1+) tricuspid valve insufficiency. Pulmonary artery systolic pressure is 32 mmHg. Ordering Physician: Michelle Hanna Referring Physician: MAHESH PIERCE Performed By: Ravi Thomas RCS
--- NOTE | 2020-05-22 14:19 | HP.PCM_ITS ---
<Peng Naik - Last Filed: 05/22/20 14:19> Problem List (1) CVA (cerebral vascular accident) Status: Acute (2) Essential hypertension Status: Chronic History of Present Illness Date of Admission: 05/22/20 Chief Complaint: strokelike symptoms The patient is a 79 year old F with pmhx of HTN and unclear valvular disease who presented to the ER with concern for stroke. The patients problems started about 2 weeks ago. The patient's found her at the bottom of the stairs. She had left arm and leg weakness, she also had slurred speech and left facial droop. The patient did not seek medical attention. Her symptoms did not improve, they went to see their primary care doctor who recommended they come to the emergency room. The patient notes that her slurred speech is somewhat improved, her left-sided weakness is ongoing, and she has significant facial droop. She has not had a stroke in the past, she has no history of atrial fibrillation. She follows Dr. Oneill for hypertension, reportedly she was worked up at the [facility] for valvular disease-she is not sure which. She does have a positive family history for TIA and heart disease. [] Past Medical History Past Medical History (Chronic Problems): Chronic Problems (Last Reviewed 07/02/19 @ 09:[address] Gee Oneill MD) Essential hypertension (Chronic) Medical History: Medical History (Last Reviewed 07/02/19 @ 09:[address] Gee Oneill MD) History of left heart catheterization (Resolved) Onset Date: ~12/07/17 Z98.890 Essential hypertension (Chronic) I10 Atypical chest pain (Acute) R07.89 Allergies No Known Allergies Allergy (Verified 05/22/20 10:36) Home Medications: Ambulatory Orders Medication Instructions Recorded ALPRAZolam [Xanax] 0.125 mg PO QHS PRN 12/06/17 hydrochlorothiazide 25 mg tablet 12.5 mg PO DAILY #90 tab 07/02/19 Aspirin E.C. [Ecotrin] 81 mg PO DAILY@0800 05/22/20 Metoprolol Succinate [Toprol Xl] 12.5 mg PO DAILY 05/22/20 Surgical History: Surgical History (Last Reviewed 07/02/19 @ 09:[address] Gee Oneill MD) H/O: hysterectomy Z90.710 History of dilatation and curettage Z98.890 Hx of appendectomy Z90.49 Surgical History: appendectomy, hysterectomy Psychiatric History: Anxiety IGNITION SPECIALIST History: No pertinent IGNITION SPECIALIST history Lives: Spouse/ Significant Other Smoking Status: Never smoker Alcohol: None Drugs: None - *Family History Maternal Family History: Family History (Last Reviewed 05/22/20 @ 14:25 by LOY Patterson) Mother Heart disease Father Heart disease Brother Heart disease History Items: - - TIA Paternal Family History: Family History (Last Reviewed 05/22/20 @ 14:25 by LOY Patterson) Mother Heart disease Father Heart disease Brother Heart disease Review of Systems Constitutional: Denies: Chills, Fever, Weight Change HEENT: Denies: Head Aches, Sinus Congestion, Sinus Drainage Cardiovascular: Denies: Chest Pain, Edema, Palpitations Respiratory: Denies: Cough, Shortness of breath at rest, Sputum production Gastrointestinal: Denies: Abdominal Pain, Nausea, Vomiting Genitourinary: Denies: Dysuria, Hesitancy, Urgency Musculoskeletal: Denies: Joint Pain, Joint Tenderness, Muscle pain Skin: Denies: Lesions, Rash, Wounds Neurological: Reports: Balance problems, Change in Speech, Slurred speech, Focal weakness, Incoordination. Denies: Numbness, Tingling Psychiatric: Denies: Anxiety, Depression, Homicidal Ideations, Suicidal Idea tions Hematologic/ Lymphatic: Denies: Easy Bruising, Easy Bleeding VTE Information - Inpt Only VTE Present on Admission: No VTE Mechan Device Prophylaxis: None VTE Pharm Prophylaxis ordered?: Yes Patient Problems: Active and Suspected Problems (Last Reviewed 07/02/19 @ 09:[address] Gee Oneill MD) CVA (cerebral vascular accident) (Acute) - Physical Exam Vitals/I&O's: Vital Signs Temp Pulse Resp BP Pulse Ox 97.5 F L 55 L 16 148/75 H 100 05/22/20 14:03 05/22/20 14:03 05/22/20 14:03 05/22/20 14:03 05/22/20 14:03 Oxygen Delivery Method Room Air Weight: 135 lb 12.876 oz Body Mass Index (BMI) 21.9 Finger Stick Blood Glucose 83 General: Alert, Oriented x3, Cooperative HEENT: Atraumatic, PERRLA, EOMI, Normocephalic Neck: Supple, No JVD, Negative Carotid Bruits Lungs: Clear to auscultation, Normal air movement Cardiovascular: Regular rate, No murmurs Abdomen: Bowel Sounds Present, Soft, Non Tender Extremities: No edema, Capillary Refill Less than 3 Seconds Skin: No rashes, No breakdown Musculoskeletal: No Tenderness to Palpation of Joints or Extremities Neurological: Facial Droop - left, Slurred Speech Psych/Mental Status: Normal Affect, Appropriate, Alert and oriented to time, place, person, mood and affect Laboratory Results 05/22/20 10:52: POC Glucose 83 05/22/20 11:10: WBC 6.5, RBC 3.97 L, Hgb 12.6, Hct 38.8, MCV 97.7, MCH 31.7, MCHC 32.5, RDW Std Deviation 46.5 H, RDW Coeff of Haim 12.9, Plt Count 252, MPV 10.7, Immature Gran % (Auto) 0.300, Neut % (Auto) 56.0, Lymph % (Auto) 26.3, Barron % (Auto) 13.7 H, Eos % (Auto) 3.2, Baso % (Auto) 0.5, Absolute Neuts (auto) 3.6, Absolute Lymphs (auto) 1.71, Nucleated RBC % 0 05/22/20 11:10: PT 12.1, INR 0.9, APTT 24.9 05/22/20 11:10: Sodium 139, Potassium 4.0, Chloride 104, Carbon Dioxide 33.0 H, Anion Gap 2 L, BUN 26 H, Creatinine 0.83, Estim Creat Clear Calc 53.14, Est GFR (MDRD) Af Amer 86, Est GFR (MDRD) Non-Af 71, BUN/Creatinine Ratio 31.3 H, Glucose 88, Calcium 8.7, Troponin I < 0.015 Current Medications Acetaminophen (Acetaminophen 325 Mg Tablet) 650 mg PO Q6H PRN PRN PRN Reason: Pain Score 1-10/Temp > 100.7 F Al Hydroxide/Mg Hydroxide (Mag Hydrox/Al Hydrox/Simeth 30 Ml Udc) 30 ml PO Q6H PRN PRN PRN Reason: Gastric Burning Albuterol Sulfate (Albuterol 2.5 Mg/3 Ml Vial.Neb.) 2.5 mg INHALATION Q2H PRN PRN PRN Reason: SOB/Wheezing Aspirin (Aspirin 81 Mg Tab.Chew) 81 mg PO DAILY@0800 ROSANNE Atorvastatin Calcium (Atorvastatin Calcium 80 Mg Tablet) 80 mg PO QHS ROSANNE Famotidine (Famotidine 20 Mg Tablet) 20 mg PO BID ROSANNE Labetalol HCl (Labetalol (Prefilled) 20 Mg/4 Ml) 10 - 20 mg IV Q10M PRN PRN PRN Reason: to Maintain BP Goals Magnesium Hydroxide (Magnesium Hydroxide 30 Ml Udc) 30 ml PO DAILY PRN PRN PRN Reason: Constipation Metoprolol Succinate (Metoprolol(Xl)Succ 25 Mg Tablet) 25 mg PO DAILY ROSANNE Ondansetron HCl (Ondansetron 4 Mg/2 Ml Vial) 4 mg IV Q8H PRN PRN PRN Reason: NAUSEA/VOMITING Assessment/Plan All Active Problems (Last Reviewed 07/02/19 @ 09:[address] Gee Oneill MD) CVA (cerebral vascular accident) (Acute) History of left heart catheterization (Resolved ~12/07/17) Atypical chest pain (Acute) 1. CVA - CT brain shows subacute infarct. Symptoms started 2 weeks ago. Obtain MRI brain, MRA head and neck, echocardiogram. Obtain PT OT ST evals. Start aspirin and statin. Maintain on telemetry. 2. HTN - hold orals for permissive htn, also of note, pts blood pressure has been running low - pt checks at home - for example 80s/20s 3. Hx unclear valvular disorder - worked up at [facility] in past - will obtain echo for stroke workup. DVT ppx: lovenox DC planning: PTOT evals. Initially had a fall, has poor gait, may need further therapy at discharge. This patient was seen by Peng Naik PA-C under the supervision of Doctor Cyndi. <Michelle Hanna - Last Filed: 05/22/20 18:37> History of Present Illness The patient is a 79 year old F [] Past Medical History Medical History: Medical History (Last Reviewed 07/02/19 @ 09:[address] Gee Oneill MD) History of left heart catheterization (Resolved) Onset Date: ~12/07/17 Z98.890 Essential hypertension (Chronic) I10 Atypical chest pain (Acute) R07.89 Allergies No Known Allergies Allergy (Verified 05/22/20 10:36) Surgical History: Surgical History (Last Reviewed 07/02/19 @ 09:[address] Gee Oneill MD) H/O: hysterectomy Z90.710 History of dilatation and curettage Z98.890 Hx of appendectomy Z90.49 - *Family History Maternal Family History: Family History (Last Reviewed 05/22/20 @ 14:25 by LOY Patterson) Mother Heart disease Father Heart disease Brother Heart disease Paternal Family History: Family History (Last Reviewed 05/22/20 @ 14:25 by LOY Patterson) Mother Heart disease Father Heart disease Brother Heart disease - Physical Exam Vitals/I&O's: Vital Signs Temp Pulse Resp BP Pulse Ox 97.5 F L 55 L 16 148/75 H 100 05/22/20 14:03 05/22/20 14:03 05/22/20 14:03 05/22/20 14:03 05/22/20 14:03 Oxygen Delivery Method Room Air Weight: 60 kg Body Mass Index (BMI) 21.2 Finger Stick Blood Glucose 83 Laboratory Results 05/22/20 10:52: POC Glucose 83 05/22/20 11:10: WBC 6.5, RBC 3.97 L, Hgb 12.6, Hct 38.8, MCV 97.7, MCH 31.7, MCHC 32.5, RDW Std Deviation 46.5 H, RDW Coeff of Haim 12.9, Plt Count 252, MPV 10.7, Immature Gran % (Auto) 0.300, Neut % (Auto) 56.0, Lymph % (Auto) 26.3, Barron % (Auto) 13.7 H, Eos % (Auto) 3.2, Baso % (Auto) 0.5, Absolute Neuts (auto) 3.6, Absolute Lymphs (auto) 1.71, Nucleated RBC % 0 05/22/20 11:10: PT 12.1, INR 0.9, APTT 24.9 05/22/20 11:10: Sodium 139, Potassium 4.0, Chloride 104, Carbon Dioxide 33.0 H, Anion Gap 2 L, BUN 26 H, Creatinine 0.83, Estim Creat Clear Calc 53.14, Est GFR (MDRD) Af Amer 86, Est GFR (MDRD) Non-Af 71, BUN/Creatinine Ratio 31.3 H, Glucose 88, Calcium 8.7, Troponin I < 0.015 Current Medications Acetaminophen (Acetaminophen 325 Mg Tablet) 650 mg PO Q6H PRN PRN PRN Reason: Pain Score 1-10/Temp > 100.7 F Al Hydroxide/Mg Hydroxide (Mag Hydrox/Al Hydrox/Simeth 30 Ml Udc) 30 ml PO Q6H PRN PRN PRN Reason: Gastric Burning Albuterol Sulfate (Albuterol 2.5 Mg/3 Ml Vial.Neb.) 2.5 mg INHALATION Q2H PRN PRN PRN Reason: SOB/Wheezing Aspirin (Aspirin 81 Mg Tab.Chew) 81 mg PO DAILY@0800 ROSANNE Atorvastatin Calcium (Atorvastatin Calcium 80 Mg Tablet) 80 mg PO QHS ROSANNE Famotidine (Famotidine 20 Mg Tablet) 20 mg PO BID ROSANNE Labetalol HCl (Labetalol (Prefilled) 20 Mg/4 Ml) 10 - 20 mg IV Q10M PRN PRN PRN Reason: to Maintain BP Goals Magnesium Hydroxide (Magnesium Hydroxide 30 Ml Udc) 30 ml PO DAILY PRN PRN PRN Reason: Constipation Metoprolol Succinate (Metoprolol(Xl)Succ 25 Mg Tablet) 25 mg PO DAILY ROSANNE Ondansetron HCl (Ondansetron 4 Mg/2 Ml Vial) 4 mg IV Q8H PRN PRN PRN Reason: NAUSEA/VOMITING Sodium Chloride (0.9% Saline Lock 10 Ml Syringe) 10 - 40 ml IV UD PRN PRN Reason: SALINE FLUSH Assessment/Plan This patient was seen in conjunction with LOY Amezcua. I have independently interviewed and examined the patient and reviewed pertinent historical, laboratory, and other data. Please refer to LOY Amezcua note for his patient's presentation, findings, and recommendations. I have reviewed and his note and concur with his documentation 79 y/o with PMHx of Hypertension, valvular disease who comes in with a 2 week history of left sided weakness and slurred speech. Patient did not seek care until now. Ct brain showed subacute infarct in right periventricular region. Rib X-ray showed questionable nondisplaced fractures of anterior left 10th and 11th ribs Vitals reviewed - stable Physical Exam: Gen: Comfortable, not pale, not jaundiced CVS:HS I +II, regular, no murmurs RESP: Diminished at lung bases GI: BS present and normal, soft, nontender, no palpable organs EXT:No edema COMMERCIAL ADMINISTRATOR: AO x3, power is 5/5, normal tone, CNII-XII intact ASSESSMENT: 1. Acute/subacute CVA 2. Hypertension 3. Left anterior 10th and 11th ribs 4. Valvular heart disease Plan: Stroke work-up - MRI brain, MRA head and neck, lipid profile, HgbA1c SOC consult Aspirin 81 mg daily, Atorvastatin 40mg daily Check lipid profile, HgBA1c Inpatient E&M: 46518 Init Hosp L3
--- NOTE | 2020-05-22 14:39 | MRI_ITS ---
STUDY: MRA OF THE HEAD WITHOUT CONTRAST REASON FOR EXAM: Female, 79 years old. Facial droop slurred speech for 2 weeks TECHNIQUE: 3-D [id number] (TOF) imaging was performed with MIPs. The study was performed unenhanced. COMPARISON: None. FINDINGS: Bilateral base of skull carotids, bifurcations, anterior and middle cerebral arteries and proximal branches are patent. Posterior communicating arteries are moderate bilaterally Posterior cerebral arteries and superior cerebellar arteries and proximal branches are patent. Vertebral arteries, basilar arteries are patent. There is a right deep frontal white matter infarct. MRI/MRA Head ONLY without Contrast IMPRESSION: 1. Unremarkable nulato of Miguel and proximal branches. No large vessel occlusion. Electronically Signed: Ceci Puente MD at 17:54 EST Tel , Service support ,
--- NOTE | 2020-05-22 14:39 | MRI_ITS ---
STUDY: MRA NECK WITH AND WITHOUT CONTRAST REASON FOR EXAM: Female, 79 years old. facial droop, slurred speech x 2 weeks TECHNIQUE: 3-D [id number] (TOF) imaging was performed in an 1.5 T MRI scanner. 12CC DOTAREM IV was administered for the contrast enhanced images. COMPARISON: None. FINDINGS: RIGHT CAROTID ARTERIES: Normal right common carotid artery (CCA). Normal right common carotid bulb. Normal origin of the right internal carotid (ICA) artery without a hemodynamically significant stenosis. There is atherosclerotic tortuous elongation of the cervical portion of the right internal carotid artery. Normal origin of the right external carotid artery (ECA). LEFT CAROTID ARTERIES: Normal left common carotid artery (CCA). Normal left common carotid bulb. Normal origin of the left internal carotid (ICA) artery without a hemodynamically significant stenosis. There is atherosclerotic tortuous elongation of the cervical portion of the left internal carotid artery. Normal origin of the left external carotid artery (ECA). VERTEBRAL ARTERIES: Normal antegrade flow within the bilateral vertebral artery without a hemodynamically significant stenosis. MRI/MRA Neck WITH and W/O Contrast IMPRESSION: Normal bilateral cervical carotid and vertebral arteries. Electronically Signed: Yuri Blackwood MD at 17:38 EST , Service support ,
--- NOTE | 2020-05-22 14:40 | MRI_ITS ---
We are attempting to reach an attending provider to discuss findings. An addendum with communication details will be sent when the communication is complete. STUDY: MRI BRAIN WITHOUT CONTRAST REASON FOR EXAM: Female, 79 years old. Facial droop and slurred speech for 2 weeks TECHNIQUE: Standardized multiplanar fat and water weighted pulse sequences were obtained. COMPARISON: CT head earlier same day FINDINGS: There is a moderate extent deep right frontal white matter late acute/early subacute infarct, estimated at 5-10 days old. This corresponds with stated history. Appearance is concordant with CT. There is no hemorrhagic transformation. There is no other acute infarct. There are no extra parenchymal fluid collections, hydrocephalus or herniation. Major basal skull flow voids are intact. MRI/Brain without Contrast IMPRESSION: 1. Right deep frontal matter moderate extent late acute/early subacute infarct, MCA territory. 2. No hemorrhagic transformation. Electronically Signed: Ceci Puente MD at 17:53 EST Tel , Service support ,
[2020-05-22] MEDS: Acetaminophen 325 MG Tablet 650 MG PO (17:54)
[2020-05-22] MEDS: Famotidine 20 MG Tablet PO (22:10)
[2020-05-22] MEDS: Atorvastatin Calcium 80 MG Tablet PO (22:10)
[2020-05-22] MEDS: Enoxaparin 40 MG/0.4 ML Syringe SC (22:10)
[2020-05-23] VITALS (13 sets, daily range): BP systolic 111–145; BP diastolic 64–83; PULSE 49–97; RESP 16–20; TEMP 36.3–36.9; O2SAT 96–100; BMI 21.2
[2020-05-23 07:23] LABS: Absolute Lymphocyte Count 1.57 X10^3/uL (0.83-4.51); Absolute Neutrophil Count 3.2 X10^3/uL (2.0-7.7); Basophil# 0.04 X10^3/uL; Basophil% 0.7 % (0-1); Eosinophil# 0.19 X10^3/uL; Eosinophils% 3.4 % (0-5); Hematocrit 40.6 % (37-47); Hemoglobin 12.9 g/dL (12.0-15.0); Lymphocyte # 1.57 X10^3/ul (4.0); Lymphocyte % 27.9 % (19-41); Mean Corp Hgb Conc 31.8 g/dL (32-36); Mean Corpuscular Hgb 31.4 pg (27.0-32.0); Mean Corpuscular Volume 98.8 fL (81-99); Monocyte# 0.65 X10^3/uL; Monocyte% 11.5 % (0-10); NRBC Flagged by Analyzer 0 % (0-5); Neutrophil # 3.16 X10^3/uL (2.7-7.7); Neutrophil % 56.1 % (47-70); Platelet Count 194 K/mm3 (150-450); RBC Distribution Width SD 46.6 fl (35.1-43.9); Red Blood Count 4.11 M/mm3 (4.2-5.4); White Blood Count 5.6 K/mm3 (4.4-11.0)
--- NOTE | 2020-05-23 07:28 | PN_ITS ---
Patient Problems: Active and Suspected Problems (Last Reviewed 07/02/19 @ 09:[address] Gee Oneill MD) CVA (cerebral vascular accident) (Acute) Reason for Visit: Follow-up on acute CVA Subjective: Patient was seen and examined. She is eager to be discharged. Denies any worsening weakness or dizziness or tingling or numbness. Speech therapy had initially recommended patient to be n.p.o. but she declined and subsequently she is on a modified diet with aspiration precautions. She will be going for mod ified barium swallow. Vitals/I&O's: Vital Signs Temp Pulse Resp BP Pulse Ox 98.0 F 59 L 16 133/82 H 100 05/23/20 05:00 05/23/20 05:00 05/23/20 05:00 05/23/20 05:00 05/23/20 05:00 Oxygen Delivery Method Room Air Weight: 60 kg Body Mass Index (BMI) 21.2 Finger Stick Blood Glucose 83 Intake and Output for Last 24 Hours 05/21/20 05/22/20 05/23/20 23:59 23:59 23:59 Intake Total 480 / 480 120 / 120 Balance 480 / 480 120 / 120 General: Alert, Oriented x3, Cooperative, No apparent distress HEENT: Atraumatic, PERRLA, EOMI, Normocephalic Oral: Moist Mucosa Neck: Supple Lungs: Clear to auscultation, Normal air movement Cardiovascular: Regular rate, Regular Rhythm, Normal S1, Normal S2, No murmurs Abdomen: Bowel Sounds Present, Soft, Non Tender, Non-Distended, No Hepato- splenomegaly Extremities: No edema Skin: No rashes Musculoskeletal: No Tenderness to Palpation of Joints or Extremities Lymphatic: No Cervical, Supraclavicular, or Inguinal Adenopathy Neurological: Cranial nerves II-XII grossly intact, Neuro grossly intact Psych/Mental Status: Normal Affect, Appropriate Laboratory Results 05/22/20 10:52: POC Glucose 83 05/22/20 11:10: WBC 6.5, RBC 3.97 L, Hgb 12.6, Hct 38.8, MCV 97.7, MCH 31.7, MCHC 32.5, RDW Std Deviation 46.5 H, RDW Coeff of Haim 12.9, Plt Count 252, MPV 10.7, Immature Gran % (Auto) 0.300, Neut % (Auto) 56.0, Lymph % (Auto) 26.3, [place] % (Auto) 13.7 H, Eos % (Auto) 3.2, Baso % (Auto) 0.5, Absolute Neuts (auto) 3.6, Absolute Lymphs (auto) 1.71, Nucleated RBC % 0 05/22/20 11:10: PT 12.1, INR 0.9, APTT 24.9 05/22/20 11:10: Sodium 139, Potassium 4.0, Chloride 104, Carbon Dioxide 33.0 H, Anion Gap 2 L, BUN 26 H, Creatinine 0.83, Estim Creat Clear Calc 53.14, Est GFR (MDRD) Af Amer 86, Est GFR (MDRD) Non-Af 71, BUN/Creatinine Ratio 31.3 H, Glucose 88, Calcium 8.7, Troponin I < 0.015 05/23/20 05:40: WBC 5.6, RBC 4.11 L, Hgb 12.9, Hct 40.6, MCV 98.8, MCH 31.4, MCHC 31.8 L, RDW Std Deviation 46.6 H, RDW Coeff of Haim 13.0, Plt Count 194, MPV 12.0, Immature Gran % (Auto) 0.400, Neut % (Auto) 56.1, Lymph % (Auto) 27.9, [place] % (Auto) 11.5 H, Eos % (Auto) 3.4, Baso % (Auto) 0.7, Absolute Neuts (auto) 3.2, Absolute Lymphs (auto) 1.57, Nucleated RBC % 0 05/23/20 05:40: Sodium Pending, Potassium Pending, Chloride Pending, Carbon Dioxide Pending, Anion Gap Pending, BUN Pending, Creatinine Pending, Est GFR (MDRD) Af Amer Pending, Est GFR (MDRD) Non-Af Pending, BUN/Creatinine Ratio Pending, Glucose Pending, Calcium Pending, Ferritin Pending, Total Bilirubin Pending, AST Pending, ALT Pending, Alkaline Phosphatase Pending, Total Protein Pending, Albumin Pending, Triglycerides Pending, Cholesterol Pending, LDL Cholesterol Pending, VLDL Cholesterol Pending, HDL Cholesterol Pending Current Medications Acetaminophen (Acetaminophen 325 Mg Tablet) 650 mg PO Q6H PRN PRN PRN Reason: Pain Score 1-10/Temp > 100.7 F Last Admin: 05/22/20 17:54 Dose: 650 mg Documented by: Al Hydroxide/Mg Hydroxide (Mag Hydrox/Al Hydrox/Simeth 30 Ml Udc) 30 ml PO Q6H PRN PRN PRN Reason: Gastric Burning Albuterol Sulfate (Albuterol 2.5 Mg/3 Ml Vial.Neb.) 2.5 mg INHALATION Q2H PRN PRN PRN Reason: SOB/Wheezing Aspirin (Aspirin 81 Mg Tab.Chew) 81 mg PO DAILY@0800 [facility] Atorvastatin Calcium (Atorvastatin Calcium 80 Mg Tablet) 80 mg PO QHS [facility] Last Admin: 05/22/20 22:10 Dose: 80 mg Documented by: Enoxaparin Sodium (Enoxaparin 40 Mg/0.4 Ml Syringe) 40 mg SC DAILY@2200 [facility] Last Admin: 05/22/20 22:10 Dose: 40 mg Documented by: Famotidine (Famotidine 20 Mg Tablet) 20 mg PO BID [facility] Last Admin: 05/22/20 22:10 Dose: 20 mg Documented by: Ibuprofen (Ibuprofen 400 Mg Tablet) 400 mg PO Q6H PRN PRN PRN Reason: Pain 1-10 or Fever Labetalol HCl (Labetalol (Prefilled) 20 Mg/4 Ml) 10 - 20 mg IV Q10M PRN PRN PRN Reason: to Maintain BP Goals Magnesium Hydroxide (Magnesium Hydroxide 30 Ml Udc) 30 ml PO DAILY PRN PRN PRN Reason: Constipation Melatonin (Melatonin 3 Mg Tablet) 3 mg PO QHS [facility] Last Admin: 05/22/20 23:49 Dose: Not Given Documented by: Metoprolol Succinate (Metoprolol(Xl)Succ 25 Mg Tablet) 25 mg PO DAILY [facility] Ondansetron HCl (Ondansetron 4 Mg/2 Ml Vial) 4 mg IV Q8H PRN PRN PRN Reason: NAUSEA/VOMITING Sodium Chloride (0.9% Saline Lock 10 Ml Syringe) 10 - 40 ml IV UD PRN PRN Reason: SALINE FLUSH STROKE Vital Signs/Narrative: Vital Signs Temp Pulse Resp BP Pulse Ox 05/23/20 05:00 98.0 F 59 L 16 133/82 H 100 Medical Necessity - Tobacco Use Smoking Status: Never smoker Tobacco Use: Non-smoker Assessment/Plan All Active Problems (Last Reviewed 07/02/19 @ 09:[address] Gee Oneill MD) CVA (cerebral vascular accident) (Acute) History of left heart catheterization (Resolved ~12/07/17) Atypical chest pain (Acute) 1. Acute/subacute deep frontal matter moderate CVA- patient was symptomatic 2 weeks ago but did not seek help CTA of the head did not show any large vessel occlusion. Total cholesterol is 228, LDL 144, HDL 53. HgbA1c is pending. Currently on aspirin, atorvastatin 2. Hypertension, controlled, continue metoprolol 3. Left anterior 10th and 11th ribs, traumatic, status post fall Pain is fairly controlled, continue on Tylenol and Lidoderm patches 4. Valvular heart disease, 2D echo is pending 5. DVT PPx- Lovenox PA Inpatient E&M: 54591 Subs Hosp L2
[2020-05-23 07:55] LABS: AST(SGOT) 34 U/L (15-37); Alanine Aminotransfer ALT/SGPT 42 U/L (13-56); Albumin, Serum 3.2 g/dL (3.2-5.0); Alkaline Phosphatase 78 U/L (45-117); Anion Gap 5 (5-15); BUN 23 mg/dL (7-18); BUN/Creat Ratio 27.2 RATIO (10-20); Calcium,Total 8.8 mg/dL (8.5-10.1); Chloride 104 mmol/L (98-107); Cholesterol 228 mg/dL (200); Creatinine, Serum 0.84 mg/dL (0.55-1.02); EST Glomerular Filtration Rate 69 mL/min (>60); Est Glom Filt Rate - Afr Amer 84 mL/min (>60); Estimated Creatinine Clearance 52.51 ml/min; Ferritin 53 ng/mL (8-252); Globulin 3.2 g/dL (2.2-4.2); Glucose 75 mg/dL (74-106); High Density Lipoprotein 53 mg/dL; Protein, Total 6.4 g/dL (6.4-8.2); Sodium Level 138 mmol/L (136-145); Triglycerides 153 mg/dL; Very Low Density Lipoprotein 31 mg/dL (5-40)
[2020-05-23] MEDS: Aspirin 81 MG TAB.CHEW PO (08:20)
[2020-05-23] MEDS: Famotidine 20 MG Tablet PO ×2 (08:20→20:12)
--- NOTE | 2020-05-23 08:57 | TELEMED_ITS ---
[facility] Telemed has confirmed receipt of a request for visit. This document confirms receipt of the order initiating the consult. To find the results of the consultation, please view the patient's reports for the scanned Telemed Consult.
[2020-05-23] MEDS: Acetaminophen 325 MG Tablet 650 MG PO ×2 (13:56→20:11)
[2020-05-23 14:48] LABS: Hemoglobin A1c 5.4 % (3.8-5.6)
[2020-05-23] MEDS: Lidocaine 5% Patch 2 PATCH TOPICAL (16:18)
[2020-05-23] MEDS: Enoxaparin 40 MG/0.4 ML Syringe SC (20:11)
[2020-05-23] MEDS: Atorvastatin Calcium 80 MG Tablet PO (20:11)
[2020-05-23] MEDS: MELATONIN 3 MG TABLET PO (20:12)
[2020-05-24] VITALS (11 sets, daily range): BP systolic 129–161; BP diastolic 69–94; PULSE 51–70; RESP 16–18; TEMP 36.4–36.7; O2SAT 97–99
--- NOTE | 2020-05-24 05:38 | PCS.PANDOC ---
PANDEMIC DOCUMENTATION INITIATED: Date: 05/22/20 Time: 14:00
[2020-05-24] MEDS: Famotidine 20 MG Tablet PO ×2 (09:21→21:24)
[2020-05-24] MEDS: Metoprolol(XL)Succ 25 MG Tablet PO (09:21)
[2020-05-24] MEDS: Aspirin 81 MG TAB.CHEW PO (09:21)
--- NOTE | 2020-05-24 09:29 | CASEMGMT ---
SW completed a PHQ 9 with patient as she did have a Stroke. She scored a 6 which indicates mild Depression. She denied any need for counseling resources. Deja CRUZ MSW
--- NOTE | 2020-05-24 10:57 | CASEMGMT ---
ZIGGY MAC assessment: Face to Face with patient for initial transition planning/care coordination assessment. ZIGGY MAC introduced self and role at [facility], pt voices understanding and consents to assessment at this time. Pt is lying in bed in no distress at this time. Pt is A/Ox4 at this time and answers all questions appropriately at this time. Care providers, pharmacy, and demographics verified at this time. Presentation: My head does not feel right when I walk. Pt states she had a stroke last week but was not seen by healthcare. Pt also states her bp was low at home this time. Pt has a hx of 'leaky valve.' Admitting dx: CVA PCP: Zachary Specialists: Mai, cardio Preferred Pharmacy[place] [facility] [place] [facility] [place]: Self [place] Living Will/HPOA: Pt states does not have LW/HPOA and declines AD info at this time. LNOK: Marcial Meade, ; Puja Meade, daughter Living Arrangements: Pt states lives in 1 story home with with a couple steps in and states no concerns at home at this time. Pt states is independent with ADL's. Transportation: Pt states no transportation concerns at this time. DME/HHC: Pt states no current DME but her son-in-law can get her anything that she would want/need. Pt states no hx of HHC or SNF but has been to OP therapy in the past. Pt states no concerns with going home at time of discharge. Pt is retired. Pt states does not smoke cigarettes or drink ETOH. Pt states no further concerns/needs at this time. CM to follow for any further discharge planning/needs. Advised pt to ask for CM if any further questions/concerns/needs arise, voices understanding. Pt Goal: Home Plan: [place] ZIGGY MAC
[2020-05-24] MEDS: Acetaminophen 325 MG Tablet 650 MG PO (13:55)
[2020-05-24] MEDS: Clopidogrel Bisulfate 75 MG Tablet PO (13:56)
--- NOTE | 2020-05-24 14:05 | EKG12_ITS ---
Test Reason : CP Blood Pressure : / mmHG Vent. Rate : 065 BPM Atrial Rate : 065 BPM P-R Int : 156 ms QRS Dur : 070 ms QT Int : 402 ms P-R-T Axes : 073 027 048 degrees QTc Int : 418 ms Sinus rhythm with Premature atrial complexes Otherwise normal ECG Confirmed by CHUY DELEON, JUAN CARLOS ([id number]), writer editor SERA GARCIA ([id number]) on 05/26/2020 9:02:07 AM Referred By: CLARA Confirmed By:JUAN CARLOS VERA MD
[2020-05-24] MEDS: Ondansetron 4 MG/2 ML Vial IV (15:34)
--- NOTE | 2020-05-24 18:13 | PN_ITS ---
Patient Problems: Active and Suspected Problems (Last Reviewed 07/02/19 @ 09:[address] Gee Oneill MD) CVA (cerebral vascular accident) (Acute) Subjective: Patient was seen and examined today, a modified barium swallow exam was not scheduled for the patient and it cannot be done until tomorrow, patient has agreed to stay and have the procedure done tomorrow. Patient's echocardiogram was performed today and did not show any abnormality, patient had an episode of chest discomfort today which may have been secondary to musculoskeletal reasons or the fact that she has probable left 10th and 11th rib fractures as result of her recent fall. She had an EKG performed which did not show any evidence of ischemic changes. At the time my examination this afternoon, patient denied any recurrence of her chest pain. Patient stated that she was taking a baby aspirin a day at home, I have added Plavix to her medication regimen and she will need to be maintained on this when she goes home. - Physical Exam Vitals/I&O's: Vital Signs Temp Pulse Resp BP Pulse Ox 98.0 F 68 18 161/94 H 97 05/24/20 15:20 05/24/20 15:20 05/24/20 15:20 05/24/20 15:20 05/24/20 15:20 Oxygen Delivery Method Room Air Weight: 60 kg Body Mass Index (BMI) 21.2 Finger Stick Blood Glucose 83 Intake and Output for Last 24 Hours 05/22/20 05/23/20 05/24/20 23:59 23:59 23:59 Intake Total 480 / 480 840 / 840 600 / 600 Balance 480 / 480 840 / 840 600 / 600 General: Alert, Oriented x3, Cooperative, No apparent distress, Well developed, Well nourished HEENT: Atraumatic, PERRLA, EOMI, Normocephalic Oral: Moist Mucosa Neck: Supple, No JVD, Trachea Midline, Thyroid Normal Size and Texture Lungs: Clear to auscultation, Normal air movement, No rhonchi, No wheeze, No rales Cardiovascular: Regular rate, Regular Rhythm, Normal S1, Normal S2, No murmurs, PMI Normal, No rub noted, No Gallop Abdomen: Bowel Sounds Present, Soft, Non Tender, Non-Distended Extremities: No clubbing, No cyanosis, No edema, Capillary Refill Less than 3 Seconds Skin: No rashes, No breakdown Musculoskeletal: No Tenderness to Palpation of Joints or Extremities Neurological: Cranial nerves II-XII grossly intact, Neuro grossly intact, Sensory exam intact to light touch and pain Psych/Mental Status: Normal Affect, Appropriate, Alert and oriented to time, place, person, mood and affect Current Medications Acetaminophen (Acetaminophen 325 Mg Tablet) 650 mg PO Q6H PRN PRN PRN Reason: Pain Score 1-10/Temp > 100.7 F Last Admin: 05/24/20 13:55 Dose: 650 mg Documented by: Al Hydroxide/Mg Hydroxide (Mag Hydrox/Al Hydrox/Simeth 30 Ml Udc) 30 ml PO Q6H PRN PRN PRN Reason: Gastric Burning Albuterol Sulfate (Albuterol 2.5 Mg/3 Ml Vial.Neb.) 2.5 mg INHALATION Q2H PRN PRN PRN Reason: SOB/Wheezing Aspirin (Aspirin 81 Mg Tab.Chew) 81 mg PO DAILY@0800 [facility] Last Admin: 05/24/20 09:21 Dose: 81 mg Documented by: Atorvastatin Calcium (Atorvastatin Calcium 80 Mg Tablet) 80 mg PO QHS [facility] Last Admin: 05/23/20 20:11 Dose: 80 mg Documented by: Clopidogrel Bisulfate (Clopidogrel Bisulfate 75 Mg Tablet) 75 mg PO DAILY [facility] Enoxaparin Sodium (Enoxaparin 40 Mg/0.4 Ml Syringe) 40 mg SC DAILY@2200 [facility] Last Admin: 05/23/20 20:11 Dose: 40 mg Documented by: Famotidine (Famotidine 20 Mg Tablet) 20 mg PO BID [facility] Last Admin: 05/24/20 09:21 Dose: 20 mg Documented by: Labetalol HCl (Labetalol (Prefilled) 20 Mg/4 Ml) 10 - 20 mg IV Q10M PRN PRN PRN Reason: to Maintain BP Goals Lidocaine (Lidocaine 5% Patch) 2 patch TOPICAL DAILY PRN; Protocol PRN Reason: Pain Score 6-10 Last Admin: 05/23/20 16:18 Dose: 2 patch Documented by: Magnesium Hydroxide (Magnesium Hydroxide 30 Ml Udc) 30 ml PO DAILY PRN PRN PRN Reason: Constipation Melatonin (Melatonin 3 Mg Tablet) 3 mg PO QHS [facility] Last Admin: 05/23/20 20:12 Dose: 3 mg Documented by: Metoprolol Succinate (Metoprolol(Xl)Succ 25 Mg Tablet) 25 mg PO DAILY [facility] Last Admin: 05/24/20 09:21 Dose: 25 mg Documented by: Ondansetron HCl (Ondansetron 4 Mg/2 Ml Vial) 4 mg IV Q8H PRN PRN PRN Reason: NAUSEA/VOMITING Last Admin: 05/24/20 15:34 Dose: 4 mg Documented by: Sodium Chloride (0.9% Saline Lock 10 Ml Syringe) 10 - 40 ml IV UD PRN PRN Reason: SALINE FLUSH Medical Necessity - Tobacco Use Smoking Status: Never smoker Tobacco Use: Non-smoker Assessment/Plan All Active Problems (Last Reviewed 07/02/19 @ 09:[address] Gee Oneill MD) CVA (cerebral vascular accident) (Acute) History of left heart catheterization (Resolved ~12/07/17) Atypical chest pain (Acute) #1 acute right frontal ischemic infarction in the MCA territory-again patient was placed on Plavix, she will remain on aspirin, continue PT and OT, patient will have a modified barium swallow performed tomorrow with speech therapy involved #2 essential hypertension #3 probable left 10th and 11th rib fracture secondary to recent fall #4 dysphagia-patient will undergo modified barium swallow tomorrow #5 chest pain-probably musculoskeletal in nature, patient had a stress test in 2019 which was negative for reversible ischemia. Patient's echocardiogram today was unremarkable Inpatient E&M: 79053 Subs Hosp L2
[2020-05-24] MEDS: Enoxaparin 40 MG/0.4 ML Syringe SC (21:24)
[2020-05-24] MEDS: Atorvastatin Calcium 80 MG Tablet PO (21:24)
[2020-05-24] MEDS: MELATONIN 3 MG TABLET PO (21:24)
[2020-05-25] VITALS (8 sets, daily range): BP systolic 125–144; BP diastolic 62–70; PULSE 48–67; RESP 16–18; TEMP 36.2–36.4; O2SAT 98–99
[2020-05-25] MEDS: Acetaminophen 325 MG Tablet 650 MG PO (07:45)
[2020-05-25] MEDS: Aspirin 81 MG TAB.CHEW PO (08:52)
[2020-05-25] MEDS: Clopidogrel Bisulfate 75 MG Tablet PO (08:52)
[2020-05-25] MEDS: Famotidine 20 MG Tablet PO (08:52)
--- NOTE | 2020-05-25 13:43 | SP.MBSS_ITS ---
Modified Barium Swallow - Patient Information Study Date: 05/25/20 Study Time: 13:00 Direct Billable Minutes: 120 Total Minutes procedure & reportin Diagnosis: oropharyngeal dysphagia (R13.12) Referring Physician: Maurizio Clark Reason for Referral: Concern for aspiration Medical History: Pt reports having had a mild stroke a few weeks ago and not seeking medical care at that time. The patient is a 79 year old F with pmhx of HTN and unclear valvular disease who presented to the ER with concern for stroke. The patients problems started about 2 weeks ago. The patient's found her at the bottom of the stairs. She had left arm and leg weakness, she also had slurred speech and left facial droop. The patient did not seek medical attention. Her symptoms did not improve, they went to see their primary care doctor who recommended they come to the emergency room. The patient notes that her slurred speech is somewhat im proved, her left-sided weakness is ongoing, and she has significant facial droop. She has not had a stroke in the past, she has no history of atrial fibrillation. She follows Dr. Oneill for hypertension, reportedly she was worked up at the [facility] for valvular disease-she is not sure which. She does have a positive family history for TIA and heart disease. Current Diet Ordered: mildly thick liquids/soft and bite sized textures Respiratory Status: Oxygenating on Room Air - Study Findings Consistencies: Thin Liquid, Pierre Part Thick Liquid, Honey Thick Liquid, Pudding, Cookie, Barium Tablet - Penetration-Aspiration Scale Penetration-Aspiration Scale: OBJECTIVE ASSESSMENT OF SWALLOW FUNCTION (QUANTITATIVE ? PER TRIAL): PENETRATION / ASPIRATION SCALE (POOLE): 1 = does not enter airway 2 = enters airway/above vocal folds/ejected 3 = enters airway/above vocal folds/not ejected 4 = enters airway/contacts vocal folds/ejected 5 = enters airway/contacts vocal folds/not ejected 6 = enters airway/below vocal folds/ejected 7 = enters airway/below vocal folds/not ejected despite effort 8 = enters airway/below vocal folds/no effort VIDEOFLOROSCOPIC SCALE SCORE (POOLE): Grade I = aspiration of material that has penetrated into the laryngeal vestibule, intact cough reflex Grade II = aspiration < 10 % of the bolus, intact cough reflex Grade III = aspiration of < 10 % of the bolus, reduced cough reflex or aspiration of > 10 % of the bolus, intact cough reflex Grade IV = aspiration of > 10 % of the bolus, reduced cough reflex - Penetration-Aspiration Scale Score Thin Liquid via teaspoon Result: 1= does not enter airway Thin Liquid via teaspoon Trial 2 Result: 8= enters airway/below vocal folds/no effort Comment: trace amount (grade III aspiration) Thin Liquid via small single sip from cup Result: 1= does not enter airway Comment: throat clearing present following trial. Aspiration cannot be ruled out. Thin Liquid via large single sip from cup Result: 1= does not enter airway Pierre Part Thick Liquid via small single sip from cup Result: 1= does not enter airway Barium Tablet Result: 1= does not enter airway Comment: 4 sips of mildly thick liquid for barium tablet to move through upper esophagus; consider upper GI with radiologist present for further esophageal work up. Pierre Part Thick Liquid via large single sip from cup Result: 1= does not enter airway Honey Thick Liquid via large single sip from cup Result: 1= does not enter airway Pudding Result: 1= does not enter airway Cookie Result: 1= does not enter airway Pierre Part Thick Liquid via single sip from straw Result: 4= enters airway/contacts vocal folds/ejected Pierre Part Thick Liquid via sequential sips from straw Result: 7= enters airways/below vocal folds/not ejected despite effort Comment: Grade III aspiration Pierre Part Thick Liquid via small single sip from cup Trial 2 Result: 1= does not enter airway - Oral Phase Labial Seal: No Labial Escape Tongue Control During Bolus Hold: Posterior escape of less than half of bolus Bolus Preparation/Mastication: Slow prolonged chewing/mashing with complete recollection Bolus Transport/Lingual Motion: Slowed tongue motion Oral Residue: Trace residue lining oral structures - Pharyngeal Phase Initiation of Pharyngeal Swallow: Bolus head at posterior laryngeal surgace of epiglottis Soft Palate Elevation: No bolus between soft palate and pharyngeal wall Laryngeal Elevation: Partial superior movement thyroid cart/partial apprx aryt- epig petiole Anterior Hyoid Excursion: Partial anterior movement Epiglottic Movement: Complete inversion Laryngeal Vestibule Closure at Height of Swallow: Incomplete; narrow column of air/contrast in laryngeal vestibule Pharyngeal Stripping Wave: Present - complete Pharyngoesophageal Segment Opening: Parital distension and partial duration; parital obstruction of flow Tongue Base Retraction: Narrow column of contrast between tongue base & post. pharyngeal wall Pharyngeal Residue: Trace residue within or on pharyngeal structures - Esophageal Phase Esophageal Clearance: Esophageal retention w/ retrograde flow below pharyngoesophageal seg. - Diagnosis/Impression Diagnosis: mild-moderate oropharyngeal dysphagia Impression: The patient completed a modified barium swallow study this date. The patient completed trials of thin liquids with grade III aspiration (<10% of trial) with second teaspoon sip. The patient had suspicious throat clearing with thin liquid via single small sip from cup with aspiration unable to be definitively ruled out. The patient later presented with aspiration with cough reflex although ineffective at clearing with trials of nectar thick liquids via sequential sips from straw. The patient had slow but effective mastication of solid Carola Doone cookie. Education completed following MBS study including results of assessment, diet and compensatory strategy recommendations, oropharyngeal strengthening exercises, and how to thicken liquids and where to purchase. It is recommended patient continue with skilled ST intervention at next level of care. - Recommendations Diet: Pierre Part-thick Liquids Comment: soft and bite sized textures Compensatory Strategies: Small Bites, Small Sips, No Straws, Slow Rate, Sitting upright, Remain sitting upright for 30 minutes after PO intake - pills whole followed by several small sips of liquid chaser. Supervision: Distant Supervision Recommend Repeat Modified Barium Swallow: Yes Comment: Recommending repeat MBS study in 6-[address] intervention. Need for Skilled Speech Therapy Services: Yes - continue ST intervention at next level of care Education Completed: 1. Described result of evaluation., 2. Pt understands evaluation & agrees with goals and treatment plan. - Status Active ST Patient: Active - Contact Information [facility] Speech Therapy:: Shannon Will MA, CCC-GLAZE HAND[employer]ER [address] [address] [email or web address]
--- NOTE | 2020-05-25 16:06 | PCM.DC ---
- Discharge Diagnoses Current Active Problems: Current Active and Chronic Problems (Last Reviewed 07/02/19 @ 09:[address] Gee Oneill MD) CVA (cerebral vascular accident) (Acute) Essential hypertension (Chronic) You will use the following diet at home:: Regular Your food should be the consistency of: Soft (bite-sized & easy to chew/swallow) Your liquids should be the consistency of: [place] Thick Discharge Activity: Return to Normal Activity Weight Bearing Status: Full weight bearing Additional Instructions: Follow-up with speech therapy as scheduled Do not take any medications for pain except acetaminophen, you are unable to take ibuprofen or Aleve due to the fact you are taking Plavix and aspirin. Allergies/Adverse Reactions: Allergies No Known Allergies Allergy (Verified 05/22/20 10:36) Medications to take at Discharge ALPRAZolam [Xanax] 0.125 mg PO QHS PRN 12/06/17 Aspirin E.C. [Ecotrin] 81 mg PO DAILY@0800 05/22/20 Acetaminophen [Tylenol Tablet] 650 mg PO Q6H PRN PRN tablet 05/25/20 Aspirin [Aspirin, Baby] 81 mg PO DAILY@0800 tab.chew 05/25/20 Atorvastatin Calcium [Lipitor] 80 mg PO QHS #30 tab 05/25/20 Clopidogrel Bisulfate [Plavix] 75 mg PO DAILY #30 tab 05/25/20 Metoprolol(XL)Succ [Toprol Xl (Beta Wanda)] 25 mg PO DAILY #30 tab 05/25/20 The following prescriptions were given: Atorvastatin Calcium [Lipitor] 80 mg PO QHS #30 tab Transmission Status: Pending to [facility] Clopidogrel Bisulfate [Plavix] 75 mg PO DAILY #30 tab Transmission Status: Pending to [facility] Metoprolol(XL)Succ [Toprol Xl (Beta Wanda)] 25 mg PO DAILY #30 tab Transmission Status: Pending to [facility] Primary Care Physician: Darshan Sharma DO [Primary Care Provider] - Please follow up with your Primary Care Physician in: in 1-2 week Test Results: Test results from this visit will be discussed in further detail at your follow-up appointment, if applicable.
--- NOTE | 2020-05-26 09:15 | CASEMGMT ---
Speech recommended further speech therapy for pt at discharge. Pt had stated preference for OP therapy as she has had it in the past and pt was provided with a script for OP speech at discharge. Leslee TRINH CM
--- NOTE | 2020-05-26 15:43 | DS.PCM_ITS ---
Discharge Date and Diagnosis - Problem List Patient Problems: Active and Suspected Problems (Last Reviewed 07/02/19 @ 09:[address] Gee Oneill MD) CVA (cerebral vascular accident) (Acute) Date of Admission: 05/22/20 Date of Discharge: 05/25/20 - Primary Discharge Diagnosis Acute Problems: Active Problems (Last Reviewed 07/02/19 @ 09:[address] 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 Gee Oneill MD) Essential hypertension (Chronic) Hospital Course and Treatment Operations: None Procedures: 2-D Echocardiogram Summary of Care Provided: The patient is a 79 year old F who was seen in the emergency room at [facility] with slurred speech, difficulty ambulating and a left-sided facial droop. Patient felt that she had some neurologic changes 2 weeks prior with pronounced left facial droop as well as left arm weakness in addition to some slurred speech, she did not seek medical care however. Patient complains of trouble swallowing at times, patient also stated that when she had the original symptoms 2 weeks ago she had fallen and hurt her left ribs. Work-up in the emergency room included a rib series which showed fractures of the 10th and 11th ribs on the left, CT of the brain showed a subacute infarct in the right periventricular region, patient was admitted to PCU and teleneurology was consulted, they recommended aspirin only but, unknown to teleneurology, patient had been on a baby aspirin at home prior to admission. Patient was placed on aspirin and Plavix, she underwent an echocardiogram which showed no abnormality. Patient was seen by PT, OT, and speech therapy, she was felt to have oropharyngeal dysphagia and underwent a videofluoroscopic swallow exam and it was recommended that she be placed on a nectar thickened liquid diet with soft texture solid foods. Patient had a brief episode of chest pain while in the hospital but this examiner felt it was musculoskeletal in nature and did not pursue a work-up for cardiac disease. On 05/25/2020, patient was seen and examined: On examination she appeared in good health and spirits, she does not appear to be in any distress. Vital signs as documented. Skin warm and dry and without overt rashes. Neck without JVD, thyroid appears normal, trachea is midline, neck is supple. Lungs clear, normal air movement was noted. Heart exam notable for regular rhythm, normal sounds and absence of murmurs, rubs or gallops. Abdomen unremarkable and without evidence of organomegaly, masses, or abdominal aortic enlargement, bowel sounds are prese nt in all 4 quadrants, no abdominal tenderness was noted. Extremities nonedematous, no cyanosis was noted, no clubbing was noted. Neuro: Cranial nerves II through XII are grossly intact, no focal motor deficits were noted, sensation to light touch and pinprick is intact, motor exam 5/5 throughout. Psych: Patient is alert and oriented x3, she does not appear anxious or depressed, she does not appear agitated. On 05/25/2020, patient was seen and examined and felt to be in stable condition for discharge home Patient Problems: Active and Suspected Problems (Last Reviewed 07/02/19 @ 09:[address] Gee Oneill MD) CVA (cerebral vascular accident) (Acute) - Physical Exam Vitals/I&O's: Vital Signs Temp Pulse Resp BP Pulse Ox 97.2 F L 52 L 18 125/62 H 99 05/25/20 16:14 05/25/20 16:14 05/25/20 16:14 05/25/20 16:14 05/25/20 16:14 Oxygen Delivery Method Room Air Weight: 60 kg Body Mass Index (BMI) 21.2 Finger Stick Blood Glucose 83 Intake and Output for Last 24 Hours 05/24/20 05/25/20 05/26/20 23:59 23:59 23:59 Intake Total 1010 / 1010 290 / 290 Balance 1010 / 1010 290 / 290 Discharge Activity: Return to Normal Activity Weight Bearing Status: Full weight bearing Home Medications: Medications to take at Discharge ALPRAZolam [Xanax] 0.125 mg PO QHS PRN 12/06/17 Aspirin E.C. [Ecotrin] 81 mg PO DAILY@0800 05/22/20 Acetaminophen [Tylenol Tablet] 650 mg PO Q6H PRN PRN tab 05/25/20 Aspirin [Aspirin, Baby] 81 mg PO DAILY@0800 tab.chew 05/25/20 Atorvastatin Calcium [Lipitor] 80 mg PO QHS #30 tab 05/25/20 Clopidogrel Bisulfate [Plavix] 75 mg PO DAILY #30 tab 05/25/20 Metoprolol(XL)Succ [Toprol Xl (Beta Wanda)] 25 mg PO DAILY #30 tab 05/25/20 Following Prescriptions Were Given to Patient: Atorvastatin Calcium [Lipitor] 80 mg PO QHS #30 tab Transmission Status: Received by [facility] Clopidogrel Bisulfate [Plavix] 75 mg PO DAILY #30 tab Transmission Status: Received by [facility] Metoprolol(XL)Succ [Toprol Xl (Beta Wanda)] 25 mg PO DAILY #30 tab Transmission Status: Received by [facility] Primary Care Physician: Darshan Sharma DO [Primary Care Provider] - Please follow up with your Primary Care Physician in: in 1-2 week Please Follow Up With: Darshan Sharma DO Disposition: Home Minutes spent on discharge:: 31 Patient Condition:: Stable Medical Necessity - Tobacco Use Smoking Status: Never smoker Tobacco Use: Non-smoker Meaningful Use Info Meaningful Use Diagnoses (Choose all that apply): None applicable Inpatient E&M: 06137 Disch Hosp
== END 2020-05-25 17:18 | disposition home or self-care (01) | DRG 65 ==
LOC: ED 11:51 → PCU 12:56
PROVIDERS: Admitting Provider Internal Medicine; Emergency Provider Student in an Organized Health Care Education/Training Program; PCP Family Medicine; Visit Provider Internal Medicine
DX: I63.9 Cerebral infarction, unspecified (principal); S22.42XA Multiple fractures of ribs, left side, initial encounter for closed fracture; R47.81 Slurred speech; R29.810 Facial weakness; G83.24 Monoplegia of upper limb affecting left nondominant side; R13.12 Dysphagia, oropharyngeal phase; I10 Essential (primary) hypertension; F41.9 Anxiety disorder, unspecified; W19.XXXA Unspecified fall, initial encounter; Y93.9 Activity, unspecified; Y92.9 Unspecified place or not applicable; I36.1 Nonrheumatic tricuspid (valve) insufficiency; Z79.82 Long term (current) use of aspirin; Z79.899 Other long term (current) drug therapy
CPT/HCPCS: 36415; 70450; 70544; 70549; 70551; 71101; 74230; 80048; 80053; 80061; 82728; 82962; 83036; 84484; 85025; 85610; 85730; 92507; 92526; 92610; 92611; 93005; 93306; 94762; 97162; 97165; 97802; 99285; A9575; A4216; J2405

== ENCOUNTER 2020-06-14 12:08 | Inpatient (IN) | payer OTHER, SELFPAY ==
[2020-05-23 02:44] VITALS: BMI 21.2
[2020-06-14] VITALS (8 sets, daily range): BP systolic 140–165; BP diastolic 85–102; PULSE 66–78; RESP 16–20; TEMP 36.4–36.7; O2SAT 91–97; BMI 21.4; BMI 23.6
--- NOTE | 2020-06-14 12:23 | EKG12_ITS ---
Test Reason : Blood Pressure : / mmHG Vent. Rate : 066 BPM Atrial Rate : 066 BPM P-R Int : 170 ms QRS Dur : 070 ms QT Int : 422 ms P-R-T Axes : 070 022 009 degrees QTc Int : 442 ms Normal sinus rhythm Nonspecific ST abnormality Abnormal ECG Confirmed by SHERLY DELEON, SIDNEY ([id number]), editor department IGNACIA HO ([id number]) on 06/15/2020 10:44:50 AM Referred By: JESSI Confirmed By:SIDNEY DUBOIS MD
[2020-06-14] MEDS: 0.9% Normal Saline 1,000 ML 150 ML IV ×2 (12:53→22:02)
[2020-06-14] MEDS: Ondansetron 4 MG/2 ML Vial IV ×3 (12:53→18:38)
[2020-06-14 12:54] LABS: Absolute Lymphocyte Count 1.23 X10^3/uL (0.83-4.51); Absolute Neutrophil Count 8.6 X10^3/uL (2.0-7.7); Basophil# 0.03 X10^3/uL; Basophil% 0.3 % (0-1); Eosinophil# 0.03 X10^3/uL; Eosinophils% 0.3 % (0-5); Hematocrit 41.5 % (37-47); Hemoglobin 13.3 g/dL (12.0-15.0); Lymphocyte # 1.23 X10^3/ul (4.0); Lymphocyte % 11.4 % (19-41); Mean Corpuscular Hgb 31.5 pg (27.0-32.0); Mean Corpuscular Volume 98.3 fL (81-99); Mean Platelet Vol. 11.1 fl (6.2-12.0); Monocyte# 0.84 X10^3/uL; Monocyte% 7.8 % (0-10); NRBC Flagged by Analyzer 0 % (0-5); Neutrophil # 8.61 X10^3/uL (2.7-7.7); Neutrophil % 79.9 % (47-70); Platelet Count 225 K/mm3 (150-450); RBC Distribution Width CV 13.1 % (11.6-14.6); RBC Distribution Width SD 48.2 fl (35.1-43.9); Red Blood Count 4.22 M/mm3 (4.2-5.4); White Blood Count 10.8 K/mm3 (4.4-11.0)
--- NOTE | 2020-06-14 13:00 | RAD_ITS ---
STUDY: X-RAY CHEST REASON FOR EXAM: Female, 79 years old. htn and nausea and vomiting since last night. TECHNIQUE: Single AP portable view of the chest. COMPARISON: Comparison is made with prior examination dated 05/22/2020. FINDINGS: EKG electrodes are seen. Hyperinflation. There now is evidence of increased markings at the lung bases slightly more prominent on the left side suggestive of mild bibasilar atelectasis. Blunting of both costophrenic angles. Normal size heart. Normal mediastinum and guille. Normal visualized pulmonary arteries. There is atherosclerotic calcification of the aortic arch with tortuosity. Normal visualized thoracic spine. Prior screw and sideplate fixation device of the proximal right humerus. There is no demonstrated abnormality of the visualized soft tissue structures of the upper abdomen. RAD/Chest 1 View (Portable) IMPRESSION: Hyperinflation with mild degree of increased markings at the lung bases slightly worse on the left side with blunting of both costophrenic angle. This is suggestive bibasilar atelectasis. Electronically Signed: Son Vaughan MD at 13:31 EST , Service support ,
[2020-06-14 13:18] LABS: Lactic Acid 1.6 mmol/L (0.4-1.9)
[2020-06-14 13:29] LABS: AST(SGOT) 91 U/L (15-37); Alanine Aminotransfer ALT/SGPT 86 U/L (13-56); Albumin, Serum 3.6 g/dL (3.2-5.0); Alkaline Phosphatase 136 U/L (45-117); Anion Gap 8 (5-15); BUN 28 mg/dL (7-18); BUN/Creat Ratio 23.5 RATIO (10-20); Calcium,Total 9.1 mg/dL (8.5-10.1); Chloride 102 mmol/L (98-107); Creatinine, Serum 1.19 mg/dL (0.55-1.02); EST Glomerular Filtration Rate 47 mL/min (>60); Est Glom Filt Rate - Afr Amer 57 mL/min (>60); Estimated Creatinine Clearance 34.19 ml/min; Globulin 3.7 g/dL (2.2-4.2); Glucose 94 mg/dL (74-106); Lipase 71 U/L (73-393); Protein, Total 7.3 g/dL (6.4-8.2); Sodium Level 138 mmol/L (136-145)
--- NOTE | 2020-06-14 13:35 | US_ITS ---
EXAM: US ABDOMEN LIMITED, RIGHT UPPER QUADRANT CLINICAL INDICATION: nausea, abdominal pain TECHNIQUE: Real-time ultrasound of the right upper quadrant with image documentation. This report was created using [employer] report generation technology. COMPARISON: None. FINDINGS: LIVER: Unremarkable. There is normal echotexture. No focal hepatic lesion. No intrahepatic biliary ductal dilation. GALLBLADDER: Unremarkable. No shadowing gallstone. No gallbladder wall thickening is demonstrated. No pericholecystic fluid. Negative sonographic Gibbs''s sign. COMMON BILE DUCT: Unremarkable as visualized. The proximal common bile duct is within normal limits for the patient''s age. PANCREAS: Unremarkable as visualized. No focal abnormality is demonstrated in the pancreas. No pancreatic ductal dilatation. RIGHT KIDNEY: Unremarkable. There is no hydronephrosis. No shadowing calculus. No focal lesion or perinephric collection is demonstrated. US/Gallbladder IMPRESSION: Normal right upper quadrant ultrasound. Electronically Signed: Edgar Desir MD ([place]) at 15:01 EST , Service support ,
[2020-06-14 13:46] LABS: Bacteria 0 SEEN /hpf (None Seen); Mucous, Urine 0 SEEN /hpf (<or=2+)
[2020-06-14 13:48] LABS: Color, Urine Yellow (Yellow); Glucose, Dipstick Normal (Normal); Ketone-Dipstick 15 mg/dl (Negative); Leukocyte Esterase-Dipstick Negative /ul (Negative); Nitrite-Dipstick Negative (Negative); Occult Blood-Urine 250 /ul (Negative); Protein-Dipstick 30 mg/dl (Negative); Urine Bilirubin Dipstick Negative (Negative); Urine Clarity Sl. Cloudy (Clear); Urine Urobilinogen Normal (Normal); Urine pH 6.5 (5.0 - 8.0)
[2020-06-14 13:56] LABS: Red Blood Cells-Urine 50-100 SEEN /hpf (0-5)
[2020-06-14 13:57] LABS: Squamous Epithelial Cells - UA 0-5 SEEN /hpf (5-10); White Blood Cells 0-5 SEEN /hpf (0-5)
[2020-06-14] MEDS: Aspirin 81 MG TAB.CHEW 162 MG PO (14:12)
--- NOTE | 2020-06-14 14:27 | CT_ITS ---
EXAM: CT ABDOMEN AND PELVIS WITHOUT INTRAVENOUS CONTRAST CLINICAL INDICATION: flank pain TECHNIQUE: Helically acquired images were obtained of the abdomen and pelvis without intravenous contrast. This CT exam was performed using one or more of the following dose reduction techniques: automated exposure control, adjustment of the mA and/or kV according to patient size, and/or use of iterative reconstruction technique. This report was created using [employer] report generation technology. COMPARISON: None. FINDINGS: LOWER THORAX: Small bilateral pleural effusions with atelectasis and/or scarring in the lung bases. No cardiomegaly. ABDOMEN: LIVER: Unremarkable. Homogeneous. GALLBLADDER AND BILE DUCTS: Unremarkable. No calcified gallstones. No gallbladder distention or wall edema. No intra- or extrahepatic biliary ductal dilation. PANCREAS: Unremarkable. No focal cystic mass. SPLEEN: Unremarkable. Normal size without focal cystic or solid mass. ADRENALS: Unremarkable. No nodules. KIDNEYS AND URETERS: No hydronephrosis or urinary tract calcifications. Normal renal size and position. STOMACH AND BOWEL: Diverticulosis of the colon. No stomach or bowel distention. No focal inflammatory change. PELVIS: APPENDIX: No evidence of acute appendicitis. BLADDER: Unremarkable. REPRODUCTIVE: Unremarkable as visualized. No mass. ABDOMEN and PELVIS: INTRAPERITONEAL SPACE: Unremarkable. No ascites or other fluid collection. No free air. BONES/JOINTS: Unremarkable. No suspicious lytic or blastic abnormality. SOFT TISSUES: Unremarkable. No discrete abdominal or pelvic wall hernia. VASCULATURE: Atherosclerosis of the abdominal aorta. Abdominal aorta is non-dilated. LYMPH NODES: Unremarkable. No enlarged lymph nodes. CT/Abdomen/Pelvis without Cont IMPRESSION: No hydronephrosis or urinary tract calcifications. Electronically Signed: Edgar Desir MD ([place]) at 15:35 EST , Service support ,
--- NOTE | 2020-06-14 15:29 | ED.DCSUM_ITS ---
- ER Visit Summary Date of Service: 06/14/20 Chief Complaint: [Nausea/vomiting, hypertension] History of Present Illness: The patient is a 79 F [presents to the emergency department with multiple complaints. Patient states she started feeling poorly last evening with nausea. Patient throughout the night felt like her heart was racing and pounding although she denied chest pain. She denies exertional dyspnea. Denies fever or cough or recent illness. Patient continues to have nausea today and she called her primary care physician who told her to come to the emergency department to have her heart evaluated. Patient has no coronary artery disease history. She does state that she had a stroke a couple of months ago. Patient states that her blood pressure was elevated at home to 170/103 which is unusual for her. Patient's blood pressure normally runs 1 20-1 30 systolic. Patient has history of hypertension, high cholesterol, leaky heart valves and history of CVA.] Physical Examination: [HEENT-PERRLA, EOMI. Cranial nerves II through XII grossly intact. TMs clear. Mucous membranes moist. No adenopathy. Cardiovascular-regular rate and rhythm with 2 out of 6 systolic ejection murmur or ectopy Lungs-clear to auscultation, chest wall stable without crepitus or subcu emphysema Abdomen-normoactive bowel sounds, soft, nontender, no rebound or rigidity, no peritoneal signs. Extremities-intact ?4, normal range of motion, normal pulses, atraumatic] Test Results: [EKG obtained arrival shows sinus rhythm with a ventricular rate of 66 bpm with no acute ST segment changes noted. CBC with differential showing a 10.8, hemoglobin 13, hematocrit 41.5, platelets 225. Chemistries unremarkable. BUN 28 creatinine 1.19. Troponin was 0.557. LFTs showed a slight elevated alk phos 136, ALT 86, AST 91. Lipase was 71. COVID-19 test was negative. Chest x-ray unremarkable. Gallbladder ultrasound was normal. CT flank obtained interpreted by myself as no acute disease process I did appreciate any kidney stones however official radiology report pending] Emergency Department Course and Treatment: [Line established on arrival. Patient received aspirin 162 mg p.o. Patient received Zofran for nausea.] Treatment Plan: [Case discussed with hospitalist will evaluate patient for admission] Disposition: [Admit] Impression: [Acute coronary syndrome/non-ST elevation OR Nausea Hypertension] This note was generated with [employer] dictation software. It may contain incorrect words, spelling, and punctuation that were not noted in review of the chart prior to signing ED Disposition - Plan for ED Patient: Referrals: Darshan Sharma DO [Primary Care Provider] -
--- NOTE | 2020-06-14 15:38 | NURSING ---
PCU OBS ASHLEY ACS. NSTEMI
--- NOTE | 2020-06-14 16:02 | HP.PCM_ITS ---
Problem List (1) NSTEMI (non-ST elevated myocardial infarction) Status: Acute (2) CVA (cerebral vascular accident) Status: Chronic Qualifiers: CVA mechanism: unspecified Qualified Code(s): I63.9 - Cerebral infarction, unspecified (3) History of left heart catheterization Status: Resolved (4) Essential hypertension Status: Chronic (5) Atypical chest pain Status: Acute History of Present Illness Date of Admission: 06/14/20 Chief Complaint: nausea The patient is a 79 year old F who started feeling unwell last night with nausea. Persisted till today and I was concerned and presented to the emergency room. Patient underwent work-up in the emergency room, including a gallbladder ultrasound abdominal pelvis CT that those were both negative, however, patient's troponin was elevated at 0.557. Patient did have chest pain during her last hospitalization and her troponin was negative x1 at that time. Patient denied any overt chest pain or palpitations. Patient's LFTs were slightly elevated as well with AST being 91, previously 34 ALT 86 previously 42. Patient did receive 2 rounds of ondansetron and is currently feeling better at this time. [] Past Medical History Past Medical History (Chronic Problems): Chronic Problems (Last Reviewed 07/02/19 @ 09:[address] Gee Oneill MD) CVA (cerebral vascular accident) (Chronic) Essential hypertension (Chronic) Medical History: Medical History (Last Updated 06/14/20 @ 16:[address] Aaron Cheung DO) History of left heart catheterization (Resolved) Onset Date: ~12/07/17 Z 98.890 Essential hypertension (Chronic) I10 Atypical chest pain (Acute) R07.89 CVA (cerebral vascular accident) I63.9 Hyperlipidemia E78.5 Allergies No Known Allergies Allergy (Verified 06/14/20 12:11) Home Medications: Ambulatory Orders Medication Instructions Recorded ALPRAZolam [Xanax] 0.125 mg PO QHS PRN 12/06/17 Aspirin [Aspirin, Baby] 81 mg PO DAILY@0800 tab.chew 05/25/20 Atorvastatin Calcium [Lipitor] 80 mg PO QHS #30 tab 05/25/20 Clopidogrel Bisulfate [Plavix] 75 mg PO DAILY #30 tab 05/25/20 Metoprolol(XL)Succ [Toprol Xl 25 mg PO DAILY #30 tab 05/25/20 (Beta Wanda)] Acetaminophen [Tylenol Extra 500 mg PO Q4H PRN PRN 06/14/20 Strength] Capsaicin 1 dose PO DAILY 06/14/20 Cholecalciferol (Vitamin D3) 1,000 unit PO DAILY 06/14/20 [Vitamin D3] Co Q-10 1 dose PO DAILY 06/14/20 Magnesium Oxide [Magnesium] 400 mg PO DAILY 06/14/20 Surgical History: Surgical History (Last Reviewed 06/14/20 @ 16:[address] 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 Aaron Cheung DO) Mother Heart disease Father Heart disease Brother Heart disease History Items: - - TIA Review of Systems Constitutional: Denies: Anorexia, Chills, Fever, Malaise, Weakness Eyes: Denies: Blurred vision, Double vision HEENT: Denies: Head Aches, Sinus Congestion, Sinus Drainage Cardiovascular: Denies: Chest Pain, Edema Respiratory: Denies: Cough, Shortness of breath at rest, Sputum production Gastrointestinal: Reports: Nausea, Vomiting. Denies: Abdominal Pain Genitourinary: Denies: Dysuria Musculoskeletal: Denies: Joint Pain, Joint Tenderness Skin: Denies: Dryness Neurological: Denies: Numbness, Tingling, Focal weakness Hematologic/ Lymphatic: Denies: Easy Bruising, Easy Bleeding, Hx of blood clot Comment: All review of systems were negative except as mentioned above in the history of present illness and the other review of systems. VTE Information - Inpt Only VTE Present on Admission: No VTE Mechan Device Prophylaxis: None VTE Pharm Prophylaxis ordered?: No Reason prophylaxis not ordered:: Treatment Not Indicated - Physical Exam Vitals/I&O's: Vital Signs Temp Pulse Resp BP Pulse Ox 36.4 C L 73 19 H 165/93 H 97 06/14/20 12:09 06/14/20 14:00 06/14/20 14:00 06/14/20 14:00 06/14/20 14:00 Oxygen Delivery Method Room Air Weight: 56.699 kg Body Mass Index (BMI) 21.4 Finger Stick Blood Glucose 83 General: Alert, Cooperative, No apparent distress HEENT: Atraumatic, Normocephalic Oral: Moist Mucosa, No Gingival or Mucosal Lesions/ Ulcerations Neck: No Nodes, Thyroid Normal Size and Texture Lungs: Clear to auscultation, Normal air movement, No rhonchi, No wheeze, No rales Cardiovascular: Regular rate, Regular Rhythm, Normal S1, Normal S2, No murmurs Abdomen: Bowel Sounds Present, Soft, Non Tender, Non-Distended, No Hepato- splenomegaly Extremities: No edema, No Calf Tenderness Skin: No rashes, No breakdown Musculoskeletal: No Tenderness to Palpation of Joints or Extremities, No Muscle Wasting Neurological: Deep Tendon Reflexes 2+/4 and Symmetrical, - - No clonus Psych/Mental Status: Normal Affect, Appropriate Microbiology Past 72 Hours 06/14/20 13:05 Mucosa - Nose SARS-CoV-2 Antigen (Rapid) - Final Laboratory Results 06/14/20 12:41: WBC 10.8, RBC 4.22, Hgb 13.3, Hct 41.5, MCV 98.3, MCH 31.5, MCHC 32.0, RDW Std Deviation 48.2 H, RDW Coeff of Haim 13.1, Plt Count 225, MPV 11.1, Immature Gran % (Auto) 0.300, Neut % (Auto) 79.9 H, Lymph % (Auto) 11.4 L, [place] % (Auto) 7.8, Eos % (Auto) 0.3, Baso % (Auto) 0.3, Absolute Neuts (auto) 8.6 H, Absolute Lymphs (auto) 1.23, Nucleated RBC % 0 06/14/20 12:41: Sodium 138, Potassium 4.0, Chloride 102, Carbon Dioxide 28.0, Anion Gap 8, BUN 28 H, Creatinine 1.19 H, Estim Creat Clear Calc 34.19, Est GFR (MDRD) Af Amer 57 L, Est GFR (MDRD) Non-Af 47 L, BUN/Creatinine Ratio 23.5 H, Glucose 94, Calcium 9.1, Total Bilirubin 0.70, AST 91 H, ALT 86 H, Alkaline Phosphatase 136 H, Troponin I 0.557 H, Total Protein 7.3, Albumin 3.6, Globulin 3.7, Albumin/Globulin Ratio 1.0, Lipase 71 L 06/14/20 12:41: Lactic Acid 1.6 06/14/20 13:40: Urine Color Yellow, Urine Clarity Sl. Cloudy, Urine pH 6.5, Ur Specific [place] 1.010, Urine Protein 30 H, Urine Glucose (UA) Normal, Urine Ketones 15 H, Urine Occult Blood 250 H, Urine Nitrite Negative, Urine Bilirubin Negative, Urine Urobilinogen Normal, Ur Leukocyte Esterase Negative, Urine RBC 50-100 SEEN, Urine WBC 0-5 SEEN, Ur Squamous Epith Cells 0-5 SEEN, Urine Bacteria 0 SEEN, Urine Mucus 0 SEEN EKG showed normal sinus rhythm with no acute changes. Clinical Impression(s) from Imaging Studies Chest X-Ray 06/14/20 13:00 IMPRESSION: Hyperinflation with mild degree of increased markings at the lung bases slightly worse on the left side with blunting of both costophrenic angle. This is suggestive bibasilar atelectasis. Electronically Signed: Son Vaughan MD at 13:31 EST , Service support , Gallbladder Ultrasound 06/14/20 13:35 IMPRESSION: Normal right upper quadrant ultrasound. Electronically Signed: Edgar Desir MD ([place]) at 15:01 EST , Service support , Abdomen/Pelvis CT 06/14/20 14:27 IMPRESSION: No hydronephrosis or urinary tract calcifications. Electronically Signed: Edgar Desir MD ([place]) at 15:35 EST , Service support , Current Medications Sodium Chloride () 1,000 mls @ 150 mls/hr IV .Q6H40M ROSANNE Last Admin: 06/14/20 12:53 Dose: 150 mls/hr Documented by: Assessment/Plan All Active Problems (Last Reviewed 07/02/19 @ 09:[address] Gee Oneill MD) NSTEMI (non-ST elevated myocardial infarction) (Acute) History of left heart catheterization (Resolved ~12/07/17) Atypical chest pain (Acute) 1. Non-ST elevation myocardial infarction Patient with atypical symptoms with just nausea and vomiting no overt chest pain, however troponins were elevated at 0.557 Plan: * Patient already on aspirin, clopidogrel and high intensity statin and will con tinue with these * Start anticoagulation with enoxaparin * Patient did have an echocardiogram 1 month ago that showed normal LV function with an EF of 60%. Stage I diastolic dysfunction. No shunt. Pulmonary artery systolic pressure of 32 mmHg. * Consult placed to cardiology for further recommendations. Patient did have a left heart catheterization in 2018 that showed normal coronaries. 2. Transaminitis Unclear significance. Patient does have mild elevation of her LFTs at this time Ultrasound and CT of the abdomen pelvis were unremarkable Plan: * Monitor labs, if continues to trend up, would recommend possible viral testing but would feel lobe yield at this point time 3. Recent stroke MRI from May 22 showed a deep right frontal infarct Patient already on medications and will continue Plan: * Continue with medications as above * PT OT evaluate and treat * Follow-up with neurology as outpatient 4. Dysphagia Ongoing since her recent stroke Plan: * Continue diet with nectar thickened liquids * Speech therapy evaluate and treat 5. VTE prophylaxis: Not indicated as patient is already anticoagulated. 6. Advanced care planning: Discussed with the patient and her . Explained DNR Comfort Care arrest versus full code. Patient initially elected DNR Comfort Care arrest but then upon further discussion with her elected for full code. Informed them both that these can change at any time encouraged him to further discuss as outpatient. Therefore patient is full CODE STATUS. Inpatient E&M: 75594 Init Hosp L3
--- NOTE | 2020-06-14 16:44 | EKG12_ITS ---
Test Reason : CP ADMIT Blood Pressure : / mmHG Vent. Rate : 069 BPM Atrial Rate : 069 BPM P-R Int : 162 ms QRS Dur : 072 ms QT Int : 414 ms P-R-T Axes : 068 032 027 degrees QTc Int : 443 ms Normal sinus rhythm Normal ECG Confirmed by CHUY DELEON, JUAN CARLOS ([id number]), legal editor IGNACIA HO ([id number]) on 06/16/2020 9:01:46 AM Referred By: ASHLEY Confirmed By:JUAN CARLOS VERA MD
--- NOTE | 2020-06-14 17:07 | PCM.CONS.C ---
Reason for Consult Date of Consultation: 06/14/20 Reason for Consultation: Abdominal pain and abnormal enzymes History of Present Illness: The patient is a 79 year old F with a history of hypertension who presented to the emergency room complaining of epigastric and abdominal pain as well as nausea. She had previously been seen by us in 2018 when she had come in complaining of chest discomfort she ruled out for myocardial infarction and she underwent a cardiac catheterization which demonstrated essentially normal coronary arteries. She also had preserved left ventricular systolic function. On this visit in the emergency room she was evaluated with an ultrasound of her abdomen which did not demonstrate any significant abnormality, she was noted to have mild liver function test abnormalities and cardiac troponin enzymes which were abnormal. An EKG demonstrated T wave inversions noted inferiorly. She currently has minimal chest discomfort. Past Medical History Allergies/Adverse Reactions: Allergies No Known Allergies Allergy (Verified 06/14/20 12:11) Home Medications: Ambulatory Orders Medication Instructions Recorded ALPRAZolam [Xanax] 0.125 mg PO QHS PRN 12/06/17 Aspirin [Aspirin, Baby] 81 mg PO DAILY@0800 tab.chew 05/25/20 Atorvastatin Calcium [Lipitor] 80 mg PO QHS #30 tab 05/25/20 Clopidogrel Bisulfate [Plavix] 75 mg PO DAILY #30 tab 05/25/20 Metoprolol(XL)Succ [Toprol Xl 25 mg PO DAILY #30 tab 05/25/20 (Beta Wanda)] Acetaminophen [Tylenol Extra 500 mg PO Q4H PRN PRN 06/14/20 Strength] Capsaicin 1 dose PO DAILY 06/14/20 Cholecalciferol (Vitamin D3) 1,000 unit PO DAILY 06/14/20 [Vitamin D3] Co Q-10 1 dose PO DAILY 06/14/20 Magnesium Oxide [Magnesium] 400 mg PO DAILY 06/14/20 Past Medical History (Chronic Problems): Chronic Problems (Last Updated 06/14/20 @ 16:[address] 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 Aaron Cheung DO) Mother Heart disease Father Heart disease Brother Heart disease History Items: - - TIA Smoking Status: Never smoker Tobacco Use: Non-smoker Alcohol: None Drugs: None Review of Systems - Review of Systems General: Denies: Fever, Night Sweats, Fatigue HEENT: Denies: Vision Change Cardiovascular: Reports: Chest Discomfort. Denies: Shortness of Breath, Orthopnea, PND, Peripheral Edema, Palpitations, Lightheadedness, Dizziness, Near Syncope, Syncope Respiratory: Denies: Cough, Sputum Production, Hemoptysis Gastrointestinal: Reports: Heart Burn. Denies: Hematemesis, Hematochezia, Melena Genitourinary: Denies: Dysuria, Hematuria Muscoloskeletal: Denies: Myalgias Skin: Denies: Rash Subjectve: Pleasant lady Objective: Vital Signs Temp Pulse Resp BP Pulse Ox 98.1 F 68 20 H 152/89 H 91 06/14/20 16:30 06/14/20 16:58 06/14/20 16:30 06/14/20 16:30 06/14/20 16:30 Oxygen Delivery Method Room Air Weight: 137 lb 9.095 oz Body Mass Index (BMI) 23.6 Finger Stick Blood Glucose 83 General: Awake, Alert, Oriented x 3 HEENT: PERRL, EOMI, Sclera Non Icteric Neck: Supple, Good ROM, No Lymph Node Enlargement Lungs: Clear to auscultation Cardiovascular: Regular Rhythm, Normal S1, Normal S2, No Murmurs, No Rubs, No Gallops Vascular: No Carotid Bruits, Normal Femoral Pulses, Normal Radial Pulses, Normal Dorsalis Pedal Pulse, Normal Posterior Tibial Pulses Abdomen: Bowel Sounds Present, Soft, Non Tender, No HSM, No Organomegaly Extremities: No Cyanosis, No Clubbing, No edema Musculoskeletal: No Erythema Skin: No Rashes Lymphatic: No Lymph Node Enlargement Neurological: No Focal Motor or Sensory Deficit 06/14/20 12:41: WBC 10.8, RBC 4.22, Hgb 13.3, Hct 41.5, MCV 98.3, MCH 31.5, MCHC 32.0, Plt Count 225, MPV 11.1, Immature Gran % (Auto) 0.300, Neut % (Auto) 79.9 H, Lymph % (Auto) 11.4 L, [place] % (Auto) 7.8, Eos % (Auto) 0.3, Baso % (Auto) 0.3, Absolute Neuts (auto) 8.6 H, Nucleated RBC % 0 06/14/20 12:41: Sodium 138, Potassium 4.0, Chloride 102, Carbon Dioxide 28.0, Anion Gap 8, BUN 28 H, Creatinine 1.19 H, Est GFR (MDRD) Af Amer 57 L, Est GFR (MDRD) Non-Af 47 L, BUN/Creatinine Ratio 23.5 H, Glucose 94, Calcium 9.1, Total Bilirubin 0.70, Troponin I 0.557 H 06/14/20 12:41: Lactic Acid 1.6 06/14/20 13:40: Urine Color Yellow, Urine Clarity Sl. Cloudy, Urine pH 6.5, Ur Specific [place] 1.010, Urine Protein 30 H, Urine Glucose (UA) Normal, Urine Ketones 15 H, Urine Occult Blood 250 H, Urine Nitrite Negative, Urine Bilirubin Negative, Urine Urobilinogen Normal, Ur Leukocyte Esterase Negative, Urine RBC 50-100 SEEN, Urine WBC 0-5 SEEN Rhythm: EKG:NSR with T wave inversion inferiorly. ECHO: Stress Test: Cardiac Cath: PCI: CT Surgery: Holter monitor: EPS: PPM: CXR: Chest CT Scan: Assessment/Plan 1. Abnormal cardiac enzymes Patient presents with abnormal cardiac enzymes suggestive of a non-ST elevation myocardial infarction. Despite the fact that she had a normal cardiac catheterization 3 years ago, with the presence abnormality I would suggest that we reevaluate the above with a cardiac catheterization. The risk benefits alternatives of been explained to her she understands and agrees to proceed. Depending on the findings further recommendations will be made. 2. Hypertension Good control on the current medical therapy we will continue with no changes. Thank you for allowing me to participate in the care of your patient. Please don't hesitate to call if any issues arise.
[2020-06-14] MEDS: Acetaminophen 325 MG Tablet 650 MG PO (18:39)
[2020-06-14] MEDS: Enoxaparin 60 MG/0.6 ML Syringe SC (21:33)
[2020-06-14] MEDS: ALPRAZolam 0.25 MG Tablet 0.125 MG PO (21:33)
[2020-06-14] MEDS: Atorvastatin Calcium 80 MG Tablet PO (21:33)
[2020-06-15] VITALS (35 sets, daily range): BP systolic 95–137; BP diastolic 55–87; PULSE 70–141; RESP 14–23; TEMP 36.6–37.4; O2SAT 90–98
--- NOTE | 2020-06-15 03:49 | EKG12_ITS ---
Test Reason : DYSRHYTHMIA Blood Pressure : / mmHG Vent. Rate : 125 BPM Atrial Rate : 125 BPM P-R Int : 000 ms QRS Dur : 070 ms QT Int : 284 ms P-R-T Axes : 000 029 -01 degrees QTc Int : 409 ms Atrial fibrillation Nonspecific ST abnormality Abnormal ECG When compared with ECG of 14-JUN-2020 17:29, MANUAL COMPARISON REQUIRED, DATA IS UNCONFIRMED Confirmed by SHERLY DELEON, SIDNEY ([id number]), editor at large SERA GARCIA ([id number]) on 06/17/2020 1:22:30 PM Referred By: KIERAN Confirmed By:SIDNEY DUBOIS MD
[2020-06-15] MEDS: dilTIAZem 25 MG/5 ML Vial 10 MG IV BOLUS (04:25)
[2020-06-15] MEDS: 0.9% Saline Lock 10 ML Syringe IV ×2 (04:31→05:20)
[2020-06-15] MEDS: Acetaminophen 325 MG Tablet 650 MG PO (04:57)
[2020-06-15] MEDS: dilTIAZem 25 MG/5 ML Vial 20 MG IV BOLUS (05:20)
[2020-06-15 05:30] LABS: Absolute Neutrophil Count 16.7 X10^3/uL (2.0-7.7); Basophil# 0.05 X10^3/uL; Basophil% 0.3 % (0-1); Eosinophil# 0.01 X10^3/uL; Eosinophils% 0.1 % (0-5); Hematocrit 42.8 % (37-47); Hemoglobin 13.9 g/dL (12.0-15.0); Lymphocyte % 6.6 % (19-41); Mean Corp Hgb Conc 32.5 g/dL (32-36); Mean Corpuscular Hgb 31.3 pg (27.0-32.0); Mean Corpuscular Volume 96.4 fL (81-99); Mean Platelet Vol. 10.8 fl (6.2-12.0); Monocyte% 8.1 % (0-10); NRBC Flagged by Analyzer 0 % (0-5); Neutrophil # 16.71 X10^3/uL (2.7-7.7); Neutrophil % 84.2 % (47-70); POSITIVE DIFFERENTIAL YES; Platelet Count 197 K/mm3 (150-450); RBC Distribution Width CV 13.1 % (11.6-14.6); RBC Distribution Width SD 46.7 fl (35.1-43.9); Red Blood Count 4.44 M/mm3 (4.2-5.4); White Blood Count 19.8 K/mm3 (4.4-11.0)
[2020-06-15 05:40] LABS: Differential Indicated SCAN CRITERIA MET
[2020-06-15 05:54] LABS: ALB/GLOB Ratio 0.9 RATIO (0.9-2.4); AST(SGOT) 97 U/L (15-37); Alanine Aminotransfer ALT/SGPT 91 U/L (13-56); Albumin, Serum 2.9 g/dL (3.2-5.0); Alkaline Phosphatase 116 U/L (45-117); Anion Gap 9 (5-15); BUN 18 mg/dL (7-18); BUN/Creat Ratio 15.9 RATIO (10-20); Calcium,Total 8.5 mg/dL (8.5-10.1); Chloride 102 mmol/L (98-107); Creatinine, Serum 1.13 mg/dL (0.55-1.02); EST Glomerular Filtration Rate 50 mL/min (>60); Est Glom Filt Rate - Afr Amer 60 mL/min (>60); Globulin 3.3 g/dL (2.2-4.2); Glucose 102 mg/dL (74-106); Magnesium 1.5 mg/dL (1.6-2.6); Potassium 3.5 mmol/L (3.5-5.1); Protein, Total 6.2 g/dL (6.4-8.2); Sodium Level 138 mmol/L (136-145); Thyroid Stim Hormone (TSH) 1.34 uIU/mL (0.358-3.74)
[2020-06-15 06:25] LABS: Differential Comment SCANNED
[2020-06-15] MEDS: Aspirin 81 MG TAB.CHEW PO (06:27)
[2020-06-15] MEDS: Clopidogrel Bisulfate 75 MG Tablet PO (06:27)
[2020-06-15] MEDS: Metoprolol(XL)Succ 25 MG Tablet PO (06:27)
--- NOTE | 2020-06-15 06:52 | NURSING ---
Report given to Agustina TRINH in hospital laboratory technician. Adams TRINH
--- NOTE | 2020-06-15 08:41 | PN.CARD_ITS ---
Subjectve: Patient seen and evaluated. Went into atrial fibrillation last night. Objective: Vital Signs Temp Pulse Resp BP Pulse Ox 99.1 F 92 21 H 108/69 90 06/15/20 03:30 06/15/20 07:00 06/15/20 07:00 06/15/20 07:00 06/15/20 07:00 Oxygen Delivery Method Room Air Weight: 137 lb 9.095 oz Body Mass Index (BMI) 23.6 Finger Stick Blood Glucose 83 Intake and Output for Last 24 Hours 06/13/20 06/14/20 06/15/20 23:59 23:59 23:59 Intake Total 1000 / 1110 1124.84 / 1124.84 Balance 1000 / 1110 1124.84 / 1124.84 General: Awake, Alert, Oriented x 3 HEENT: PERRL, EOMI, Sclera Non Icteric Neck: Supple, Good ROM, No Lymph Node Enlargement Lungs: Clear to auscultation Cardiovascular: Irregular Rhythm, Normal S1, Normal S2, No Murmurs, No Rubs, No Gallops 06/14/20 12:41: WBC 10.8, RBC 4.22, Hgb 13.3, Hct 41.5, MCV 98.3, MCH 31.5, MCHC 32.0, Plt Count 225, MPV 11.1, Immature Gran % (Auto) 0.300, Neut % (Auto) 79.9 H, Lymph % (Auto) 11.4 L, [place] % (Auto) 7.8, Eos % (Auto) 0.3, Baso % (Auto) 0.3, Absolute Neuts (auto) 8.6 H, Nucleated RBC % 0 06/14/20 12:41: Sodium 138, Potassium 4.0, Chloride 102, Carbon Dioxide 28.0, Anion Gap 8, BUN 28 H, Creatinine 1.19 H, Est GFR (MDRD) Af Amer 57 L, Est GFR (MDRD) Non-Af 47 L, BUN/Creatinine Ratio 23.5 H, Glucose 94, Calcium 9.1, Total Bilirubin 0.70, Troponin I 0.557 H 06/14/20 12:41: Lactic Acid 1.6 06/14/20 13:40: Urine Color Yellow, Urine Clarity Sl. Cloudy, Urine pH 6.5, Ur Specific [place] 1.010, Urine Protein 30 H, Urine Glucose (UA) Normal, Urine Ketones 15 H, Urine Occult Blood 250 H, Urine Nitrite Negative, Urine Bilirubin Negative, Urine Urobilinogen Normal, Ur Leukocyte Esterase Negative, Urine RBC 50-100 SEEN, Urine WBC 0-5 SEEN 06/15/20 05:20: WBC 19.8 H, RBC 4.44, Hgb 13.9, Hct 42.8, MCV 96.4, MCH 31.3, MCHC 32.5, Plt Count 197, MPV 10.8, Immature Gran % (Auto) 0.700, Neut % (Auto) 84.2 H, Lymph % (Auto) 6.6 L, [place] % (Auto) 8.1, Eos % (Auto) 0.1, Baso % (Auto) 0.3, Absolute Neuts (auto) 16.7 H, Nucleated RBC % 0 06/15/20 05:20: Sodium 138, Potassium 3.5, Chloride 102, Carbon Dioxide 27.0, Anion Gap 9, BUN 18, Creatinine 1.13 H, Est GFR (MDRD) Af Amer 60, Est GFR (MDRD) Non-Af 50 L, BUN/Creatinine Ratio 15.9, Glucose 102, Calcium 8.5, Magnesium 1.5 L, Total Bilirubin 1.70 H 06/15/20 05:20: Troponin I 0.647 H* Rhythm: EKG: ECHO: Stress Test: Cardiac Cath: PCI: CT Surgery: Holter monitor: EPS: PPM: CXR: Chest CT Scan: Medical Necessity - Tobacco Use Smoking Status: Never smoker Tobacco Use: Non-smoker Assessment/Plan 1. Abnormal cardiac enzymes * Cardiac catheterization performed today demonstrated the following: Normal left main coronary artery. Left anterior descending artery with no significant stenosis. Left circumflex artery which is codominant with a first obtuse marginal side branch with a 70% stenosis. Nondominant right coronary artery with no high-grade stenosis. Preserved ejection fraction. Based on above angiographic findings would continue to treat with medical therapy. 2. Hypertension * Good control on the current medical therapy we will continue with no changes. * * 3. Atrial fibrillation * Patient developed new onset atrial fibrillation. * Will continue with medical therapy for now * Will hold off on anticoagulation for 24 hours. * Thank you for allowing me to participate in the care of your patient. Please don't hesitate to call if any issues arise.
[2020-06-15] MEDS: Metoprolol Tartrate 25 MG Tablet PO ×2 (11:35→21:07)
--- NOTE | 2020-06-15 12:00 | CASEMGMT ---
Per Dr. Hanna, Dr. Oneill would like to send pt home on Eliquis at discharge. Pt is sarah and states has to pay out of pocket for all meds. Pt states she would rather not be on coumadin at this time. Pt normally gets meds at [facility], so call to [facility] pharmacy to see what out of pocket cost for Eliquis will be there at this time and per pharmacist, 'it will be over $500'. Call to [facility] retail pharmacy and per Jacqueline, the out of pocket cost for 30 days of Eliquis 5mg twice daily will be $431.46 at this time. Pt/ state they would like [facility] for pharmacy and would like pt on the Eliquis at this time. states 'we should be able to handle that.' provided a 30 day free trial card at this time. Pt/ voice no further concerns/needs for discharge. SStdaniel TRINH CM
--- NOTE | 2020-06-15 12:43 | CHAPLAIN ---
Type of Pastoral Visit _x__ Initial Visit ___ Follow-up Visit ___ On-call Visit ___ General Patient Visit ___ Spiritual Assessment ___ Family Conference ___ Bereavement ___ Rapid Response ___ Code Blue ___ Other (describe below) Pastoral Care Referral From _x__ Patient ___ Family ___ Nurse ___ Physician ___ Ruby On Rails Web Developer ___ Commercial Account Manager ___ Other (describe below) Sacrament/Intervention _x__ Active listening ___ Anointing ___ Buddhism ___ Bereavement ___ Communion ___ Gisselle exploration ___ _x__ Life review _x__ Prayer ___ Reconciliation ___ Sacrament of Sick _x__ Supportive presence ___ Wedding ___ Other (describe below) Pastoral Comments spouse at bedside; both welcome spiritual care support and the presence of police lieutenant patrol
--- NOTE | 2020-06-15 12:50 | CL.D_ITS ---
Patient Name: BARBARA ALEJO Study Date: 06/15/2020 Performing: Gee Oneill MD Ht: 64 inches 163 cm : 1940 Wt: 136.9 lbs 62 kg Age: 79 Gender: female BSA: 1.67 PROCEDURE(S) PERFORMED EB31-RDD/COR/LV CLINICAL PROFILE AND INDICATIONS Indications: ACS <= 24 hrs Heart Failure: None Stress/Imaging Stress/Image Study Performed: No CONCLUSIONS Moderate disease in a side branch of the OM1 RECOMMENDATIONS Medical therapy DESCRIPTION OF PROCEDURE The patient arrived to the procedure lab. The risks and benefits of the procedure as well as a full d escription of our services here and current unavailability of surgical backup were fully explained to the patient and/or their significant other prior to the catheterization. The Timeout was completed, verifying the correct patient and procedure. The patient's procedural site was prepped and draped in the usual fashion. Local anesthetic was given subcutaneously to right radial region with Lidocaine 2% . Local anesthetic was given subcutaneously to right groin region with Lidocaine 2%. Using a modified Seldinger technique, arterial access was obtained via the right radial artery, a 6Fr sheath was inse rted. Noted tortuous artery, unable to advance wire, arterial access was obtained via the right femor al artery, a 5Fr sheath was inserted. Left Coronary Artery selective angiography was performed in mu ltiple views using a 5 Fr. JL4 catheter. Right Coronary Artery selective angiography was then performed in multiple views using a 5 Fr. 3DRC (Herson) catheter. Left Ventriculography was pe rformed in LORA projection using a 5 Fr. Pigtail catheter. LV to AO pullback pressures were then recor ded.The arterial sheath was pulled and a TR Band was applied for hemostasis w/ 10ml air. The arterial sheath was pulled and manual compression applied until hemostasis is achieved. CORONARY ANGIOGRAPHY DOMINANCE: Co- Dominant LEFT HEART ASSESSMENT Left Ventricular Ejection Fraction: by LV Gram 50 % Posterior Basal Hypokinesis - Moderate Normal Left Ventricular systolic function LEFT MAIN: Angiographically normal LEFT ANTERIOR DESCENDING ARTERY: Mild luminal irregularities less than 30% CIRCUMFLEX ARTERY: OM 1: Proximal - 70 % Stenosis RIGHT CORONARY ARTERY: No significant disease noted COMPLICATIONS No Complications PROCEDURE MEDICATIONS Versed 1 mg IV Fentanyl 50 mcg IV Oxygen: 2 L/min via nasal cannula Cardizem 125mg / 100ml D5W @ 5 mg/hr-decreased 06/15/2020 07:56:55 Heparin diluted in 23cc Heparinized saline. Patient given 10cc IA of this solution. 06/15/2020 07:52:1 7 Verapamil 2.5mg, Ntg 100mcgs, 2000 units of Heparin diluted in 23cc Heparinized saline. Patient give n 10cc IA of this solution. 06/15/2020 07:52:17 IV Bolus: .9 NaCl 150 ml total 06/15/2020 07:59:55 SUMMARY OF HEMODYNAMIC DATA Time AIR REST ECG 07:37:40 AO 74/57 (66) SA 08:01:17 LV 87/0, 6 08:06:14 LV 81/1, 5 08:06:20 LV 74/3, 7 08:07:09 LVp 72/3, 8 08:07:17 AOp 76/47 (62) 08:07:22 Signed By Gee Oneill MD On 06/15/2020 12:50:23 Gee Oneill MD
--- NOTE | 2020-06-15 13:06 | CASEMGMT ---
Readmission chart review: Pt was initially admitted 05/22-05/25/20 for Acute CVA and was discharge home with OP speech therapy script. Pt returned to [facility] on 06/14/20 for vomiting/high blood pressure and lower back pain and was admitted for NSTEMI and taken to [facility] this am. Pt to continue with medical therapy at this time. Pt states was taking meds as prescribed and states no concerns with going home at discharge. CM to follow. Leslee TRINH CM
[2020-06-15 13:19] LABS: Pathologist Review Reviewed
--- NOTE | 2020-06-15 14:27 | PCM.PROGNOTE ---
<Delvin [employer] - Last Filed: 06/15/20 14:45> Patient Problems: Active and Suspected Problems (Last Updated 06/14/20 @ 16:[address] Aaron Cheung, DO) NSTEMI (non-ST elevated myocardial infarction) (Acute) Atypical chest pain (Acute) Subjective: Patient seen and examined. Underwent heart cath this morning which showed left circumflex artery with first obtuse marginal side branch 70% stenosis. Patient denies further chest pain. Went into atrial fibrillation overnight, remains in A. fib with controlled rate. Discussed anticoagulation options and although patient is self-pay, she does not want to be on Coumadin and is amendable to cost of Eliquis. - Physical Exam Vitals/I&O's: Vital Signs Temp Pulse Resp BP Pulse Ox 99.1 F 75 16 122/68 H 95 06/15/20 03:30 06/15/20 13:00 06/15/20 13:00 06/15/20 13:00 06/15/20 13:00 Oxygen Flow Rate (L/min) 2 Oxygen Delivery Method Room Air Weight: 137 lb 9.095 oz Body Mass Index (BMI) 23.6 Finger Stick Blood Glucose 83 Intake and Output for Last 24 Hours 06/13/20 06/14/20 06/15/20 23:59 23:59 23:59 Intake Total 1000 / 1110 1142.51 / 1142.51 Balance 1000 / 1110 1142.51 / 1142.51 General: Alert, Oriented x3, Cooperative HEENT: Atraumatic, PERRLA, EOMI, Normocephalic Neck: Supple, No JVD, Negative Carotid Bruits Lungs: Clear to auscultation, Normal air movement Cardiovascular: - - Atrial fibrillation, rate controlled Abdomen: Bowel Sounds Present, Soft, Non Tender Extremities: No clubbing, No cyanosis, No edema, Capillary Refill Less than 3 Seconds Skin: No rashes, No breakdown Musculoskeletal: No Tenderness to Palpation of Joints or Extremities Neurological: Cranial nerves II-XII grossly intact, Neuro grossly intact Psych/Mental Status: Normal Affect, Appropriate Microbiology Past 72 Hours 06/14/20 13:05 Mucosa - Nose SARS-CoV-2 Antigen (Rapid) - Final Laboratory Results 06/15/20 05:20: WBC 19.8 H, RBC 4.44, Hgb 13.9, Hct 42.8, MCV 96.4, MCH 31.3, MCHC 32.5, RDW Std Deviation 46.7 H, RDW Coeff of Haim 13.1, Plt Count 197, MPV 10.8, Immature Gran % (Auto) 0.700, Neut % (Auto) 84.2 H, Lymph % (Auto) 6.6 L, Moca % (Auto) 8.1, Eos % (Auto) 0.1, Baso % (Auto) 0.3, Absolute Neuts (auto) 16.7 H, Absolute Lymphs (auto) 1.30, Nucleated RBC % 0, Differential Comment SCANNED, Diff Path Review Reviewed 06/15/20 05:20: Sodium 138, Potassium 3.5, Chloride 102, Carbon Dioxide 27.0, Anion Gap 9, BUN 18, Creatinine 1.13 H, Estim Creat Clear Calc 36.00, Est GFR (MDRD) Af Amer 60, Est GFR (MDRD) Non-Af 50 L, BUN/Creatinine Ratio 15.9, Glucose 102, Calcium 8.5, Magnesium 1.5 L, Total Bilirubin 1.70 H, AST 97 H, ALT 91 H, Alkaline Phosphatase 116, Total Protein 6.2 L, Albumin 2.9 L, Globulin 3.3, Albumin/Globulin Ratio 0.9, TSH 1.34 06/15/20 05:20: Troponin I 0.647 H* Current Medications Acetaminophen (Acetaminophen 325 Mg Tablet) 650 mg PO Q6H PRN PRN PRN Reason: Pain Score 1-10/Temp > 100.7 F Last Admin: 06/15/20 04:57 Dose: 650 mg Documented by: Alprazolam (Alprazolam 0.25 Mg Tablet) 0.125 mg PO QHS PRN PRN Reason: ANXIETY Last Admin: 06/14/20 21:33 Dose: 0.125 mg Documented by: Aspirin (Aspirin 81 Mg Tab.Chew) 81 mg PO DAILY@0800 [facility] Last Admin: 06/15/20 06:27 Dose: 81 mg Documented by: Atorvastatin Calcium (Atorvastatin Calcium 80 Mg Tablet) 80 mg PO QHS [facility] Last Admin: 06/14/20 21:33 Dose: 80 mg Documented by: Heparin Sodium (Beef Lung) (Heparin Lock 500 Unit/5 Ml In 10 Ml Syringe) 500 unit IV UD PRN PRN Reason: HEPARIN FLUSH Sodium Chloride () 1,000 mls @ 0 mls/hr IV .Q0M [facility] Labetalol HCl (Labetalol 100 Mg/20 Ml Vial) 5 mg IV X1 PRN PRN Reason: SBP > 160 prior to sheath pull Stop: 06/17/20 08:40 Metoprolol Tartrate (Metoprolol Tartrate 25 Mg Tablet) 25 mg PO BID [facility] Last Admin: 06/15/20 11:35 Dose: 25 mg Documented by: Nitroglycerin (Nitroglycerin (Inpatient Use) 0.4 Mg Tab.Subl) 0.4 mg SUBLINGUAL Q5M PRN PRN Reason: CARDIAC/CHEST PAIN Ondansetron HCl (Ondansetron 4 Mg/2 Ml Vial) 4 mg IV Q8H PRN PRN PRN Reason: NAUSEA/VOMITING Last Admin: 06/14/20 18:38 Dose: 4 mg Documented by: Sodium Chloride (0.9% Saline Lock 10 Ml Syringe) 10 - 40 ml IV UD PRN PRN Reason: SALINE FLUSH Last Admin: 06/15/20 05:20 Dose: 10 ml Documented by: Medical Necessity - Tobacco Use Smoking Status: Never smoker Tobacco Use: Non-smoker Assessment/Plan All Active Problems (Last Updated 06/14/20 @ 16:[address] Aaron Cheung DO) NSTEMI (non-ST elevated myocardial infarction) (Acute) History of left heart catheterization (Resolved ~12/07/17) Atypical chest pain (Acute) 1. NSTEMI, CAD-cardiac catheterization demonstrates left circumflex artery with first obtuse marginal side branch 70% stenosis. Plan for continued medical therapy. Aspirin, statin, beta-luis. 2. New onset atrial fibrillation-rate controlled. Begin Eliquis tonight. Continue metoprolol. 3. Recent CVA-residual dysphagia. Continue modified diet per speech therapy recommendations. Speech therapy eval. Aspirin, statin. 4. Transaminitis-unclear etiology. Ultrasound and CT of abdomen pelvis unremarkable. Outpatient follow-up. 5. Hyperlipidemia-continue statin. 6. Anxiety-on as needed Xanax. DVT prophylaxis-Eliquyahaira This patient was seen by CAR Cuenca under the supervision of Dr. Hanna. <Michelle Hanna - Last Filed: 06/15/20 15:38> - Physical Exam Vitals/I&O's: Vital Signs Temp Pulse Resp BP Pulse Ox 97.9 F 82 18 112/73 94 06/15/20 15:09 06/15/20 15:09 06/15/20 15:09 06/15/20 15:09 06/15/20 15:09 Oxygen Flow Rate (L/min) 2 Oxygen Delivery Method Room Air Weight: 62.4 kg Body Mass Index (BMI) 23.6 Finger Stick Blood Glucose 83 Intake and Output for Last 24 Hours 06/13/20 06/14/20 06/15/20 23:59 23:59 23:59 Intake Total 1000 / 1110 1142.51 / 1142.51 Balance 1000 / 1110 1142.51 / 1142.51 Microbiology Past 72 Hours 06/14/20 13:05 Mucosa - Nose SARS-CoV-2 Antigen (Rapid) - Final Laboratory Results 06/15/20 05:20: WBC 19.8 H, RBC 4.44, Hgb 13.9, Hct 42.8, MCV 96.4, MCH 31.3, MCHC 32.5, RDW Std Deviation 46.7 H, RDW Coeff of Haim 13.1, Plt Count 197, MPV 10.8, Immature Gran % (Auto) 0.700, Neut % (Auto) 84.2 H, Lymph % (Auto) 6.6 L, Moca % (Auto) 8.1, Eos % (Auto) 0.1, Baso % (Auto) 0.3, Absolute Neuts (auto) 16.7 H, Absolute Lymphs (auto) 1.30, Nucleated RBC % 0, Differential Comment SCANNED, Diff Path Review Reviewed 06/15/20 05:20: Sodium 138, Potassium 3.5, Chloride 102, Carbon Dioxide 27.0, Anion Gap 9, BUN 18, Creatinine 1.13 H, Estim Creat Clear Calc 36.00, Est GFR (MDRD) Af Amer 60, Est GFR (MDRD) Non-Af 50 L, BUN/Creatinine Ratio 15.9, Glucose 102, Calcium 8.5, Magnesium 1.5 L, Total Bilirubin 1.70 H, AST 97 H, ALT 91 H, Alkaline Phosphatase 116, Total Protein 6.2 L, Albumin 2.9 L, Globulin 3.3, Albumin/Globulin Ratio 0.9, TSH 1.34 06/15/20 05:20: Troponin I 0.647 H* Current Medications Acetaminophen (Acetaminophen 325 Mg Tablet) 650 mg PO Q6H PRN PRN PRN Reason: Pain Score 1-10/Temp > 100.7 F Last Admin: 06/15/20 04:57 Dose: 650 mg Documented by: Alprazolam (Alprazolam 0.25 Mg Tablet) 0.125 mg PO QHS PRN PRN Reason: ANXIETY Last Admin: 06/14/20 21:33 Dose: 0.125 mg Documented by: Apixaban (Apixaban 5 Mg Tablet) 5 mg PO BID [facility] Aspirin (Aspirin 81 Mg Tab.Chew) 81 mg PO DAILY@0800 [facility] Last Admin: 06/15/20 06:27 Dose: 81 mg Documented by: Atorvastatin Calcium (Atorvastatin Calcium 80 Mg Tablet) 80 mg PO QHS [facility] Last Admin: 06/14/20 21:33 Dose: 80 mg Documented by: Sodium Chloride () 1,000 mls @ 0 mls/hr IV .Q0M [facility] Labetalol HCl (Labetalol 100 Mg/20 Ml Vial) 5 mg IV X1 PRN PRN Reason: SBP > 160 prior to sheath pull Stop: 06/17/20 08:40 Metoprolol Tartrate (Metoprolol Tartrate 25 Mg Tablet) 25 mg PO BID [facility] Last Admin: 06/15/20 11:35 Dose: 25 mg Documented by: Nitroglycerin (Nitroglycerin (Inpatient Use) 0.4 Mg Tab.Subl) 0.4 mg SUBLINGUAL Q5M PRN PRN Reason: CARDIAC/CHEST PAIN Ondansetron HCl (Ondansetron 4 Mg/2 Ml Vial) 4 mg IV Q8H PRN PRN PRN Reason: NAUSEA/VOMITING Last Admin: 06/14/20 18:38 Dose: 4 mg Documented by: Sodium Chloride (0.9% Saline Lock 10 Ml Syringe) 10 - 40 ml IV UD PRN PRN Reason: SALINE FLUSH Last Admin: 06/15/20 05:20 Dose: 10 ml Documented by: Assessment/Plan This patient was seen in conjunction with Sinai Dias NP. I have independently interviewed and examined the patient and reviewed pertinent historical, laboratory, and other data. Please refer to her note for patient's presentation, findings, and recommendations. Patient was seen and examined. She feels improved. No more chest pain. She had cardiac catheterization that showed moderate disease in the side branch of the obtuse marginal 1. Overnight, she went into A. fib, requiring prolonged boluses of Cardizem as well as Cardizem drip. She remains in A. fib but rate controlled. Off Cardizem drip Vitals were reviewed -stable Physical Exam: Gen: Comfortable, not pale, not jaundiced, alert oriented x3 CVS:HS I +II, regular, no murmurs RESP: CTA GI: BS present and normal, nontender, no palpable organs EXT:No edema Labs reviewed: ASSESSMENT: 1. Acute NSTEMI 2. New onset A. fib 3. Recent CVA 4. Residual dysphagia 5. Transaminitis 6. Hyperlipidemia 7. Anxiety disorder Meds reviewed Plan: Appreciate cardiology input Continue metoprolol, apixaban Inpatient E&M: 30182 Subs Hosp L2
[2020-06-15] MEDS: ALPRAZolam 0.25 MG Tablet 0.125 MG PO (21:07)
[2020-06-15] MEDS: Atorvastatin Calcium 80 MG Tablet PO (21:07)
[2020-06-15] MEDS: APIXABAN 5 MG TABLET PO (21:07)
[2020-06-16 02:59] VITALS: PULSE 65
[2020-06-16 03:00] VITALS: BP 94/58; PULSE 65; RESP 16; TEMP 37; O2SAT 92
[2020-06-16 05:22] LABS: Hematocrit 41.9 % (37-47); Hemoglobin 13.4 g/dL (12.0-15.0); Mean Corpuscular Hgb 32.3 pg (27.0-32.0); Mean Platelet Vol. 11.1 fl (6.2-12.0); Platelet Count 182 K/mm3 (150-450); RBC Distribution Width CV 13.6 % (11.6-14.6); RBC Distribution Width SD 50.2 fl (35.1-43.9); Red Blood Count 4.15 M/mm3 (4.2-5.4); White Blood Count 16.7 K/mm3 (4.4-11.0)
[2020-06-16 05:42] LABS: ALB/GLOB Ratio 0.7 RATIO (0.9-2.4); AST(SGOT) 61 U/L (15-37); Alanine Aminotransfer ALT/SGPT 70 U/L (13-56); Albumin, Serum 2.5 g/dL (3.2-5.0); Alkaline Phosphatase 116 U/L (45-117); Anion Gap 4 (5-15); BUN 23 mg/dL (7-18); BUN/Creat Ratio 18.4 RATIO (10-20); Calcium,Total 8.5 mg/dL (8.5-10.1); Chloride 102 mmol/L (98-107); Creatinine, Serum 1.25 mg/dL (0.55-1.02); EST Glomerular Filtration Rate 44 mL/min (>60); Est Glom Filt Rate - Afr Amer 53 mL/min (>60); Estimated Creatinine Clearance 32.55 ml/min; Globulin 3.4 g/dL (2.2-4.2); Glucose 105 mg/dL (74-106); Potassium 3.8 mmol/L (3.5-5.1); Protein, Total 5.9 g/dL (6.4-8.2); Sodium Level 136 mmol/L (136-145)
[2020-06-16 06:51] VITALS: PULSE 66
[2020-06-16 08:34] VITALS: BP 114/65; PULSE 60; RESP 16; TEMP 37.1; O2SAT 93
[2020-06-16 08:46] VITALS: PULSE 60
[2020-06-16] MEDS: APIXABAN 5 MG TABLET PO (08:46)
[2020-06-16] MEDS: Aspirin 81 MG TAB.CHEW PO (08:46)
[2020-06-16] MEDS: Metoprolol Tartrate 25 MG Tablet PO (08:46)
--- NOTE | 2020-06-16 10:07 | DCINST_ITS ---
- Discharge Diagnoses Current Active Problems: Current Active and Chronic Problems (Last Updated 06/14/20 @ 16:[address] Aaron Cheung DO) CVA (cerebral vascular accident) (Chronic) NSTEMI (non-ST elevated myocardial infarction) (Acute) Essential hypertension (Chronic) You will use the following diet at home:: Cardiac Discharge Activity: Return to Normal Activity, - - Follow post cath Instructions Call your doctor if you observe: Shortness of breath, Dizziness, Fainting spells, Chest pain Allergies/Adverse Reactions: Allergies No Known Allergies Allergy (Verified 06/14/20 12:11) Medications to take at Discharge ALPRAZolam [Xanax] 0.125 mg PO QHS PRN 12/06/17 Aspirin [Aspirin, Baby] 81 mg PO DAILY@0800 tab.chew 05/25/20 Atorvastatin Calcium [Lipitor] 80 mg PO QHS #30 tab 05/25/20 Acetaminophen [Tylenol] 500 mg PO Q4H PRN PRN 06/14/20 Capsaicin 1 dose PO DAILY 06/14/20 Cholecalciferol (Vitamin D3) [Vitamin D3] 1,000 unit PO DAILY 06/14/20 Co Q-10 1 dose PO DAILY 06/14/20 Magnesium Oxide [Magnesium] 400 mg PO DAILY 06/14/20 Apixaban [Eliquis] 5 mg PO BID #60 tab 06/16/20 Metoprolol Tartrate [Lopressor (beta luis)] 25 mg PO BID #60 tab 06/16/20 The following prescriptions were given: Apixaban [Eliquis] 5 mg PO BID #60 tab Transmission Status: Pending to [facility] Metoprolol Tartrate [Lopressor (beta luis)] 25 mg PO BID #60 tab Transmission Status: Pending to [facility] Primary Care Physician: Darshan Sharma DO [Primary Care Provider] - Please follow up with your Primary Care Physician in: 1 Week Test Results: Test results from this visit will be discussed in further detail at your follow- up appointment, if applicable. Please Follow Up With: Gee Oneill MD When: As scheduled 07/06/2020 Proposed Discharge Date: 06/16/20
--- NOTE | 2020-06-16 10:10 | DS.PCM_ITS ---
<Sinai Dias PHOTOGRAPHIC EQUIPMENT INSPECTOR - Last Filed: 06/16/20 10:16> Discharge Date and Diagnosis - Problem List Patient Problems: Active and Suspected Problems (Last Updated 06/14/20 @ 16:[address] Aaron Cheung DO) NSTEMI (non-ST elevated myocardial infarction) (Acute) Atypical chest pain (Acute) Date of Admission: 06/14/20 Date of Discharge: 06/16/20 - Primary Discharge Diagnosis Acute Problems: Active Problems (Last Updated 06/14/20 @ 16:[address] Aaron Cheung DO) 1. NSTEMI, CAD 2. New onset atrial fibrillation 3. Recent CVA-residual dysphagia. 4. Transaminitis 5. Hyperlipidemia 6. Anxiety - Secondary Discharge Diagnosis Chronic Problems: Chronic Problems (Last Updated 06/14/20 @ 16:[address] Aaron Cheung DO) CVA (cerebral vascular accident) (Chronic) Essential hypertension (Chronic) Hospital Course and Treatment Imaging Results: Diagnostic Data Chest X-Ray 06/14/20 13:00 IMPRESSION: Hyperinflation with mild degree of increased markings at the lung bases slightly worse on the left side with blunting of both costophrenic angle. This is suggestive bibasilar atelectasis. Electronically Signed: Son Vaughan MD at 13:31 EST , Service support , Gallbladder Ultrasound 06/14/20 13:35 IMPRESSION: Normal right upper quadrant ultrasound. Electronically Signed: Edgar Desir MD ([place]) at 15:01 EST , Service support , Abdomen/Pelvis CT 06/14/20 14:27 IMPRESSION: No hydronephrosis or urinary tract calcifications. Electronically Signed: Edgar Desir MD ([place]) at 15:35 EST , Service support , Dr. Oneill- Cardiology Operations: None Procedures: Cardiac catheterization Summary of Care Provided: The patient is a 79 year old F admitted 06/14/2020 due to nausea. 1. NSTEMI, CAD-cardiac catheterization demonstrates left circumflex artery with first obtuse marginal side branch 70% stenosis. Plan for continued medical therapy. Aspirin, statin, beta-wanda, Eliquis. Follow-up with cardiology, Dr. Oneill as scheduled 07/06/2020. 2. New onset atrial fibrillation-converted to sinus rhythm. Continue Eliquis, metoprolol. Follow-up with cardiology as noted above. 3. Recent CVA-residual dysphagia. Continue modified diet per speech therapy r ecommendations. Aspirin, statin. Plavix discontinued with the addition of Eliquis. 4. Transaminitis-unclear etiology. Ultrasound and CT of abdomen pelvis unremarkable. Outpatient follow-up. 5. Hyperlipidemia-continue statin. 6. Anxiety-on as needed Xanax. General: Alert, Oriented x3, Cooperative HEENT: Atraumatic, PERRLA, EOMI, Normocephalic Neck: Supple, No JVD, Negative Carotid Bruits Lungs: Clear to auscultation, Normal air movement Cardiovascular: Sinus rhythm Abdomen: Bowel Sounds Present, Soft, Non Tender Extremities: No clubbing, No cyanosis, No edema, Capillary Refill Less than 3 Seconds Skin: No rashes, No breakdown Musculoskeletal: No Tenderness to Palpation of Joints or Extremities Neurological: Cranial nerves II-XII grossly intact, Neuro grossly intact Psych/Mental Status: Normal Affect, Appropriate Patient seen and examined prior to discharge. Physical assessment as noted above. Patient is stable for discharge with follow up recommendations as noted above. This patient was seen by CAR Cuenca under the supervision of Dr. Hanna. Patient Problems: Active and Suspected Problems (Last Updated 06/14/20 @ 16:[address] Aaron Cheung, DO) NSTEMI (non-ST elevated myocardial infarction) (Acute) Atypical chest pain (Acute) - Physical Exam Vitals/I&O's: Vital Signs Temp Pulse Resp BP Pulse Ox 98.8 F 60 16 114/65 93 06/16/20 08:34 06/16/20 08:46 06/16/20 08:34 06/16/20 08:34 06/16/20 08:34 Oxygen Flow Rate (L/min) 2 Oxygen Delivery Method Room Air Weight: 137 lb 9.095 oz Body Mass Index (BMI) 23.6 Finger Stick Blood Glucose 83 Intake and Output for Last 24 Hours 06/14/20 06/15/20 06/16/20 23:59 23:59 23:59 Intake Total 1000 / 1110 1142.51 / 1142.51 Balance 1000 / 1110 1142.51 / 1142.51 Microbiology Past 72 Hours 06/14/20 13:05 Mucosa - Nose SARS-CoV-2 Antigen (Rapid) - Final Laboratory Results 06/15/20 05:20: Diff Path Review Reviewed 06/16/20 04:44: WBC 16.7 H, RBC 4.15 L, Hgb 13.4, Hct 41.9, MCV 101.0 H, MCH 32.3 H, MCHC 32.0, RDW Std Deviation 50.2 H, RDW Coeff of Haim 13.6, Plt Count 182, MPV 11.1 06/16/20 04:44: Sodium 136, Potassium 3.8, Chloride 102, Carbon Dioxide 30.0, Anion Gap 4 L, BUN 23 H, Creatinine 1.25 H, Estim Creat Clear Calc 32.55, Est GFR (MDRD) Af Amer 53 L, Est GFR (MDRD) Non-Af 44 L, BUN/Creatinine Ratio 18.4, Glucose 105, Calcium 8.5, Total Bilirubin 1.50 H, AST 61 H, ALT 70 H, Alkaline Phosphatase 116, Total Protein 5.9 L, Albumin 2.5 L, Globulin 3.4, Albumin/Globulin Ratio 0.7 L Current Medications Acetaminophen (Acetaminophen 325 Mg Tablet) 650 mg PO Q6H PRN PRN PRN Reason: Pain Score 1-10/Temp > 100.7 F Last Admin: 06/15/20 04:57 Dose: 650 mg Documented by: Alprazolam (Alprazolam 0.25 Mg Tablet) 0.125 mg PO QHS PRN PRN Reason: ANXIETY Last Admin: 06/15/20 21:07 Dose: 0.125 mg Documented by: Apixaban (Apixaban 5 Mg Tablet) 5 mg PO BID [facility] Last Admin: 06/16/20 08:46 Dose: 5 mg Documented by: Aspirin (Aspirin 81 Mg Tab.Chew) 81 mg PO DAILY@0800 [facility] Last Admin: 06/16/20 08:46 Dose: 81 mg Documented by: Atorvastatin Calcium (Atorvastatin Calcium 80 Mg Tablet) 80 mg PO QHS [facility] Last Admin: 06/15/20 21:07 Dose: 80 mg Documented by: Sodium Chloride () 1,000 mls @ 0 mls/hr IV .Q0M [facility] Labetalol HCl (Labetalol 100 Mg/20 Ml Vial) 5 mg IV X1 PRN PRN Reason: SBP > 160 prior to sheath pull Stop: 06/17/20 08:40 Metoprolol Tartrate (Metoprolol Tartrate 25 Mg Tablet) 25 mg PO BID [facility] Last Admin: 06/16/20 08:46 Dose: 25 mg Documented by: Nitroglycerin (Nitroglycerin (Inpatient Use) 0.4 Mg Tab.Subl) 0.4 mg SUBLINGUAL Q5M PRN PRN Reason: CARDIAC/CHEST PAIN Ondansetron HCl (Ondansetron 4 Mg/2 Ml Vial) 4 mg IV Q8H PRN PRN PRN Reason: NAUSEA/VOMITING Last Admin: 06/14/20 18:38 Dose: 4 mg Documented by: Sodium Chloride (0.9% Saline Lock 10 Ml Syringe) 10 - 40 ml IV UD PRN PRN Reason: SALINE FLUSH Last Admin: 06/15/20 05:20 Dose: 10 ml Documented by: Discharge Diet: Low fat/ Low Cholesterol, - - [place] thick Discharge Activity: Return to Normal Activity, - - Follow post cath Instructions Call your doctor if you observe: Shortness of breath, Dizziness, Fainting spells, Chest pain Home Medications: Medications to take at Discharge ALPRAZolam [Xanax] 0.125 mg PO QHS PRN 12/06/17 Aspirin [Aspirin, Baby] 81 mg PO DAILY@0800 tab.chew 05/25/20 Atorvastatin Calcium [Lipitor] 80 mg PO QHS #30 tab 05/25/20 Acetaminophen [Tylenol] 500 mg PO Q4H PRN PRN 06/14/20 Capsaicin 1 dose PO DAILY 06/14/20 Cholecalciferol (Vitamin D3) [Vitamin D3] 1,000 unit PO DAILY 06/14/20 Co Q-10 1 dose PO DAILY 06/14/20 Magnesium Oxide [Magnesium] 400 mg PO DAILY 06/14/20 Apixaban [Eliquis] 5 mg PO BID #60 tab 06/16/20 Metoprolol Tartrate [Lopressor (beta wanda)] 25 mg PO BID #60 tab 06/16/20 Following Prescriptions Were Given to Patient: Apixaban [Eliquis] 5 mg PO BID #60 tab Transmission Status: Received by [facility] Metoprolol Tartrate [Lopressor (beta wanda)] 25 mg PO BID #60 tab Transmission Status: Received by [facility] Primary Care Physician: Darshan Sharma DO [Primary Care Provider] - Please follow up with your Primary Care Physician in: 1 Week Please Follow Up With: Gee Oneill MD When: As scheduled 07/06/2020 Disposition: Home Minutes spent on discharge:: 35 Patient Condition:: Stable Medical Necessity - Tobacco Use Smoking Status: Never smoker Tobacco Use: Non-smoker Meaningful Use Info Meaningful Use Diagnoses (Choose all that apply): AMI - AMI/Post PCI/Angioplasty Aspirin given w/in 24hrs of arrival?: Yes ASA at discharge?: Yes Statins at discharge?: Yes Familia/ARB at discharge?: No Reason Familia/ARB not ordered:: Not indicated Beta Wanda at discharge?: Yes Done w/ Acute IL measure.: Yes <[place] - Last Filed: 06/16/20 16:46> Discharge Date and Diagnosis - Primary Discharge Diagnosis Acute Problems: Active Problems (Last Updated 06/14/20 @ 16:[address] Aaron Cheung DO) NSTEMI (non-ST elevated myocardial infarction) (Acute) Atypical chest pain (Acute) - Secondary Discharge Diagnosis Chronic Problems: Chronic Problems (Last Updated 06/14/20 @ 16:[address] Aaron Cheung DO) CVA (cerebral vascular accident) (Chronic) Essential hypertension (Chronic) Hospital Course and Treatment Summary of Care Provided: This patient was seen in conjunction with Sinai Dias NP. I have independently interviewed and examined the patient and reviewed pertinent historical, laboratory, and other data. Please refer to her note for patient's presentation, findings, and recommendations. 79-year-old female past medical history of recent CVA, on aspirin and Plavix who comes in with complaints of chest discomfort and found to have elevated troponin. Her management was that of acute non-STEMI. Cardiology was consulted. Patient underwent cardiac catheterization that showed moderate disease in the first obtuse marginal side branch of 70%. Patient also developed atrial fibrillation was in the hospital. She was started on metoprolol as well as Eliquis. She converted to normal sinus rhythm at discharge. Patient will be discharged on aspirin and Eliquis and will follow up with cardiology and her primary care doctor in the outpatient. On the day of discharge, patient was seen and examined. She denied any new complaints. No more chest pain. Physical Exam: Gen: Comfortable, not pale, not jaundiced, alert oriented x3 CVS:HS I +II, regular, no murmurs RESP: CTA GI: BS present and normal, nontender, no palpable organs EXT:No edema - Physical Exam Vitals/I&O's: Vital Signs Temp Pulse Resp BP Pulse Ox 98.8 F 60 16 114/65 93 06/16/20 08:34 06/16/20 08:46 06/16/20 08:34 06/16/20 08:34 06/16/20 08:34 Oxygen Flow Rate (L/min) 2 Oxygen Delivery Method Room Air Weight: 62.4 kg Body Mass Index (BMI) 23.6 Finger Stick Blood Glucose 83 Intake and Output for Last 24 Hours 06/14/20 06/15/20 06/16/20 23:59 23:59 23:59 Intake Total 1000 / 1110 1142.51 / 1142.51 Balance 1000 / 1110 1142.51 / 1142.51 Microbiology Past 72 Hours 06/14/20 13:05 Mucosa - Nose SARS-CoV-2 Antigen (Rapid) - Final Laboratory Results 06/16/20 04:44: WBC 16.7 H, RBC 4.15 L, Hgb 13.4, Hct 41.9, MCV 101.0 H, MCH 32.3 H, MCHC 32.0, RDW Std Deviation 50.2 H, RDW Coeff of Haim 13.6, Plt Count 182, MPV 11.1 06/16/20 04:44: Sodium 136, Potassium 3.8, Chloride 102, Carbon Dioxide 30.0, Anion Gap 4 L, BUN 23 H, Creatinine 1.25 H, Estim Creat Clear Calc 32.55, Est GFR (MDRD) Af Amer 53 L, Est GFR (MDRD) Non-Af 44 L, BUN/Creatinine Ratio 18.4, Glucose 105, Calcium 8.5, Total Bilirubin 1.50 H, AST 61 H, ALT 70 H, Alkaline Phosphatase 116, Total Protein 5.9 L, Albumin 2.5 L, Globulin 3.4, Albumin/Globulin Ratio 0.7 L Inpatient E&M: [id number] Disch Hosp
--- NOTE | 2020-06-16 10:30 | CASEMGMT ---
Pola 30 day free trial tubed to [facility] retail pharmacy and call to Nani to notify and pt also states she would like meds to bed. Nani voices no further questions. Pt/ voice no further questions/concerns/needs. Leslee TRINH CM
--- NOTE | 2020-06-16 10:34 | PHA.DC.MC ---
Pharmacy Service has performed discharge medication reconciliation and counseling for this patient. 1. APIXABAN 5MG PO BID 2. METOPROLOL TARTRATE 25MG PO BID The patient's discharge medication list was reviewed for discrepancies and discrepancies were resolved. Home Medications ALPRAZolam [Xanax] 0.125 mg PO QHS PRN 12/06/17 Aspirin [Aspirin, Baby] 81 mg PO DAILY@0800 tab.chew 05/25/20 Atorvastatin Calcium [Lipitor] 80 mg PO QHS #30 tab 05/25/20 Acetaminophen [Tylenol] 500 mg PO Q4H PRN PRN 06/14/20 Capsaicin 1 dose PO DAILY 06/14/20 Cholecalciferol (Vitamin D3) [Vitamin D3] 1,000 unit PO DAILY 06/14/20 Co Q-10 1 dose PO DAILY 06/14/20 Magnesium Oxide [Magnesium] 400 mg PO DAILY 06/14/20 Apixaban [Eliquis] 5 mg PO BID #60 tab 06/16/20 Metoprolol Tartrate [Lopressor (beta luis)] 25 mg PO BID #60 tab 06/16/20 The patient was counseled on the following discharge medications and changes in medications for homegoing were reviewed. The Reason for Use, instructions for use, and potential side effects were reviewed for all new medications. The patient's questions regarding all of their medications were answered. The patient was able to verbally demonstrate an understanding of their discharge medications.
== END 2020-06-16 13:09 | disposition home or self-care (01) | DRG 282 ==
LOC: ED 12:30 → PCU 06-15 07:22
PROVIDERS: Internal Medicine Cardiovascular Disease; Nurse Practitioner Family; Emergency Provider Emergency Medicine; PCP Family Medicine; Visit Provider Internal Medicine
DX: I21.4 Non-ST elevation (NSTEMI) myocardial infarction (principal); R74.01 Elevation of levels of liver transaminase levels; I25.10 Atherosclerotic heart disease of native coronary artery without angina pectoris; I48.91 Unspecified atrial fibrillation; I69.391 Dysphagia following cerebral infarction; R13.10 Dysphagia, unspecified; I10 Essential (primary) hypertension; E78.00 Pure hypercholesterolemia, unspecified; E78.5 Hyperlipidemia, unspecified; F41.9 Anxiety disorder, unspecified; Z79.02 Long term (current) use of antithrombotics/antiplatelets; Z79.899 Other long term (current) drug therapy; Z79.82 Long term (current) use of aspirin
CPT/HCPCS: 36415; 71045; 74176; 76705; 80053; 81001; 83605; 83690; 83735; 84443; 84484; 85025; 85027; 87426; 92507; 92610; 93005; 93458; 97110; 97162; 97166; 97530; 97535; 99152; 99153; 99284; J7030; A4216; C1769; C1894; J2405; Q9967

== ENCOUNTER 2020-06-28 10:00 | Outpatient (RCR) | payer OTHER, SELFPAY ==
[2020-05-23 02:44] VITALS: BMI 21.2
--- NOTE | 2020-06-02 11:53 | ST ---
[facility] Speech Pathology [address] [place] [address] Modified Barium Swallow Study MR#: [id number] Acct: [id number] Name: BARBARA ALEJO Rep #: [id number] : [id number] From: Shannon Will [facility], [place] Modified Barium Swallow - Patient Information Study Date: 05/25/20 Study Time: 13:00 Direct Billable Minutes: 120 Total Minutes procedure & reportin Diagnosis: oropharyngeal dysphagia (R13.12) Referring Physician: Maurizio Clark Reason for Referral: Concern for aspiration Medical History: Pt reports having had a mild stroke a few weeks ago and not seeking medical care at that time. The patient is a 79 year old F with pmhx of HTN and unclear valvular disease who presented to the ER with concern for stroke. The patients problems started about 2 weeks ago. The patient's found her at the bottom of the stairs. She had left arm and leg weakness, she also had slurred speech and left facial droop. The patient did not seek medical attention. Her symptoms did not improve, they went to see their primary care doctor who recommended they come to the emergency room. The patient notes that her slurred speech is somewhat improved, her left-sided weakness is ongoing, and she has significant facial droop. She has not had a stroke in the past, she has no history of atrial fibrillation. She follows Dr. Oneill for hypertension, reportedly she was worked up at the [facility] for valvular disease-she is not sure which. She does have a positive family history for TIA and heart disease. Current Diet Ordered: mildly thick liquids/soft and bite sized textures Respiratory Status: Oxygenating on Room Air - Study Findings Consistencies: Thin Liquid, [place] Thick Liquid, Honey Thick Liquid, Pudding, Cookie, Barium Tablet - Penetration-Aspiration Scale Penetration-Aspiration Scale: OBJECTIVE ASSESSMENT OF SWALLOW FUNCTION (QUANTITATIVE ? PER TRIAL): PENETRATION / ASPIRATION SCALE (POOLE): 1 = does not enter airway 2 = enters airway/above vocal folds/ejected 3 = enters airway/above vocal folds/not ejected 4 = enters airway/contacts vocal folds/ejected 5 = enters airway/contacts vocal folds/not ejected 6 = enters airway/below vocal folds/ejected 7 = enters airway/below vocal folds/not ejected despite effort 8 = enters airway/below vocal folds/no effort VIDEOFLOROSCOPIC SCALE SCORE (POOLE): Grade I = aspiration of material that has penetrated into the laryngeal vestibule, intact cough reflex Grade II = aspiration < 10 % of the bolus, intact cough reflex Grade III = aspiration of < 10 % of the bolus, reduced cough reflex or aspiration of > 10 % of the bolus, intact cough reflex Grade IV = aspiration of > 10 % of the bolus, reduced cough reflex - Penetration-Aspiration Scale Score Thin Liquid via teaspoon Result: 1= does not enter airway Thin Liquid via teaspoon Trial 2 Result: 8= enters airway/below vocal folds/no effort Comment: trace amount (grade III aspiration) Thin Liquid via small single sip from cup Result: 1= does not enter airway Comment: throat clearing present following trial. Aspiration cannot be ruled out. Thin Liquid via large single sip from cup Result: 1= does not enter airway [place] Thick Liquid via small single sip from cup Result: 1= does not enter airway Barium Tablet Result: 1= does not enter airway Comment: 4 sips of mildly thick liquid for barium tablet to move through upper esophagus; consider upper GI with radiologist present for further esophageal work up. [place] Thick Liquid via large single sip from cup Result: 1= does not enter airway Honey Thick Liquid via large single sip from cup Result: 1= does not enter airway Pudding Result: 1= does not enter airway Cookie Result: 1= does not enter airway [place] Thick Liquid via single sip from straw Result: 4= enters airway/contacts vocal folds/ejected [place] Thick Liquid via sequential sips from straw Result: 7= enters airways/below vocal folds/not ejected despite effort Comment: Grade III aspiration [place] Thick Liquid via small single sip from cup Trial 2 Result: 1= does not enter airway - Oral Phase Labial Seal: No Labial Escape Tongue Control During Bolus Hold: Posterior escape of less than half of bolus Bolus Preparation/Mastication: Slow prolonged chewing/mashing with complete recollection Bolus Transport/Lingual Motion: Slowed tongue motion Oral Residue: Trace residue lining oral structures - Pharyngeal Phase Initiation of Pharyngeal Swallow: Bolus head at posterior laryngeal surgace of epiglottis Soft Palate Elevation: No bolus between soft palate and pharyngeal wall Laryngeal Elevation: Partial superior movement thyroid cart/partial apprx aryt-epig petiole Anterior Hyoid Excursion: Partial anterior movement Epiglottic Movement: Complete inversion Laryngeal Vestibule Closure at Height of Swallow: Incomplete; narrow column of air/contrast in laryngeal vestibule Pharyngeal Stripping Wave: Present - complete Pharyngoesophageal Segment Opening: Parital distension and partial duration; parital obstruction of flow Tongue Base Retraction: Narrow column of contrast between tongue base & post. pharyngeal wall Pharyngeal Residue: Trace residue within or on pharyngeal structures - Esophageal Phase Esophageal Clearance: Esophageal retention w/ retrograde flow below pharyngoesophageal seg. - Diagnosis/Impression Diagnosis: mild-moderate oropharyngeal dysphagia Impression: The patient completed a modified barium swallow study this date. The patient completed trials of thin liquids with grade III aspiration (<10% of trial) with second teaspoon sip. The patient had suspicious throat clearing with thin liquid via single small sip from cup with aspiration unable to be definitively ruled out. The patient later presented with aspiration with cough reflex although ineffective at clearing with trials of nectar thick liquids via sequential sips from straw. The patient had slow but effective mastication of solid Carola Doone cookie. Education completed following MBS study including results of assessment, diet and compensatory strategy recommendations, oropharyngeal strengthening exercises, and how to thicken liquids and where to purchase. It is recommended patient continue with skilled ST intervention at next level of care. - Recommendations Diet: [place]-thick Liquids Comment: soft and bite sized textures Compensatory Strategies: Small Bites, Small Sips, No Straws, Slow Rate, Sitting upright, Remain sitting upright for 30 minutes after PO intake - pills whole followed by several small sips of liquid chaser. Supervision: Distant Supervision Recommend Repeat Modified Barium Swallow: Yes Comment: Recommending repeat MBS study in 6-[address] intervention. Need for Skilled Speech Therapy Services: Yes - continue ST intervention at next level of care Education Completed: 1. Described result of evaluation., 2. Pt understands evaluation & agrees with goals and treatment plan. - Status Active ST Patient: Active - Contact Information [facility] Speech Therapy:: Shannon Will MA, [facility] [place] [id number] [email or web address] 05/25/20 1431 <Electronically signed by Shannon Will CCC-[employer], M.A.> Date Shannon Will [employer], M.A. Co-Signature Required for all Medicare patients Date/Time Co-Signature CC: ~
--- NOTE | 2020-06-02 11:56 | HP.SP.AD ---
History - History Date of Eval: 06/02/20 Medical Diagnosis (from RX): CVA Date of Onset of Diagnosis: 05/11/20 Previous speech therapy: Yes Results: Evaluation at the hospital - dysphagia. Medications related to this diagnosis: Clopidogrel, atorvastatin, metoprolol, nerve pill taken at night Smoking Status: Never smoker Hx Smoking: No Hx Tobacco Use: No Hx Smoking Exposure: No - Pain Is pain an issue with your current prescribed condition?: Yes - Personal Right Hearing Abillity: Hard of Hearing Left Hearing Abillity: Use of Hearing Aid Visual Assistive Devices: Glasses Patients Living Arrangements: With Significant Other Patient Allergies - Allergies Allergies No Known Allergies Allergy (Verified 05/22/20 10:36) Subjective Oral Motor - Subjective Patient Reports: Drooling - Comments Comments: Minimal drooling on left corner of mouth. Objective Oral Motor - Oral Status Dentition: Upper Dentures Additional: natural on bottom. - Labial Impairment: Mild Observation at Rest: Left Droop Pucker: Mild Retraction: Mild Alternating Pucker/Retraction: Mild Involuntary Movement noted: No - Lingual Impairment: WNL Protrusion: WNL Retraction: WNL Lateralization: WNL Involuntary Movement: No - Jaw Impairment: WNL Opening: WNL Closing: WNL Involuntary Movement: No - Respiratory Status Respiratory Status: Room Air Subjective Dysphagia - Symptoms Reported Symptoms/Problems with: Coughing, Difficulty Swallowing Liquids - Current Diet Solids Current Diet: Regular - Current Diet Liquids Current Liquids: [place] Thick Modified Barium Results Hx MBS Report Entered: Yes MBS Results (from prior exam): 06/02/20 11:53 Speech Therapy by Malcolm Marte [facility] Speech Pathology [id number] [place] [address] Modified Barium Swallow Study MR#: [id number] Acct: [id number] Name: BARBARA ALEJO Rep #: [id number] : 1940 79 From: Shannon Will [facility]-CONTROL ELECTRICIAN, M.A. Modified Barium Swallow - Patient Information Study Date: 05/25/20 Study Time: 13:00 Direct Billable Minutes: 120 Total Minutes procedure & reportin Diagnosis: oropharyngeal dysphagia (R13.12) Referring Physician: Maurizio Clark Reason for Referral: Concern for aspiration Medical History: Pt reports having had a mild stroke a few weeks ago and not seeking medical care at that time. The patient is a 79 year old F with pmhx of HTN and unclear valvular disease who presented to the ER with concern for stroke. The patients problems started about 2 weeks ago. The patient's found her at the bottom of the stairs. She had left arm and leg weakness, she also had slurred speech and left facial droop. The patient did not seek medical attention. Her symptoms did not improve, they went to see their primary care doctor who recommended they come to the emergency room. The patient notes that her slurred speech is somewhat improved, her left-sided weakness is ongoing, and she has significant facial droop. She has not had a stroke in the past, she has no history of atrial fibrillation. She follows Dr. Oneill for hypertension, reportedly she was worked up at the [facility] for valvular disease-she is not sure which. She does have a positive family history for TIA and heart disease. Current Diet Ordered: mildly thick liquids/soft and bite sized textures Respiratory Status: Oxygenating on Room Air - Study Findings Consistencies: Thin Liquid, [place] Thick Liquid, Honey Thick Liquid, Pudding, Cookie, Barium Tablet - Penetration-Aspiration Scale Penetration-Aspiration Scale: OBJECTIVE ASSESSMENT OF SWALLOW FUNCTION (QUANTITATIVE ? PER TRIAL): PENETRATION / ASPIRATION SCALE (POOLE): 1 = does not enter airway 2 = enters airway/above vocal folds/ejected 3 = enters airway/above vocal folds/not ejected 4 = enters airway/contacts vocal folds/ejected 5 = enters airway/contacts vocal folds/not ejected 6 = enters airway/below vocal folds/ejected 7 = enters airway/below vocal folds/not ejected despite effort 8 = enters airway/below vocal folds/no effort VIDEOFLOROSCOPIC SCALE SCORE (POOLE): Grade I = aspiration of material that has penetrated into the laryngeal vestibule, intact cough reflex Grade II = aspiration < 10 % of the bolus, intact cough reflex Grade III = aspiration of < 10 % of the bolus, reduced cough reflex or aspiration of > 10 % of the bolus, intact cough reflex Grade IV = aspiration of > 10 % of the bolus, reduced cough reflex - Penetration-Aspiration Scale Score Thin Liquid via teaspoon Result: 1= does not enter airway Thin Liquid via teaspoon Trial 2 Result: 8= enters airway/below vocal folds/no effort Comment: trace amount (grade III aspiration) Thin Liquid via small single sip from cup Result: 1= does not enter airway Comment: throat clearing present following trial. Aspiration cannot be ruled out. Thin Liquid via large single sip from cup Result: 1= does not enter airway [place] Thick Liquid via small single sip from cup Result: 1= does not enter airway Barium Tablet Result: 1= does not enter airway Comment: 4 sips of mildly thick liquid for barium tablet to move through upper esophagus; consider upper GI with radiologist present for further esophageal work up. [place] Thick Liquid via large single sip from cup Result: 1= does not enter airway Honey Thick Liquid via large single sip from cup Result: 1= does not enter airway Pudding Result: 1= does not enter airway Cookie Result: 1= does not enter airway [place] Thick Liquid via single sip from straw Result: 4= enters airway/contacts vocal folds/ejected [place] Thick Liquid via sequential sips from straw Result: 7= enters airways/below vocal folds/not ejected despite effort Comment: Grade III aspiration [place] Thick Liquid via small single sip from cup Trial 2 Result: 1= does not enter airway - Oral Phase Labial Seal: No Labial Escape Tongue Control During Bolus Hold: Posterior escape of less than half of bolus Bolus Preparation/Mastication: Slow prolonged chewing/mashing with complete recollection Bolus Transport/Lingual Motion: Slowed tongue motion Oral Residue: Trace residue lining oral structures - Pharyngeal Phase Initiation of Pharyngeal Swallow: Bolus head at posterior laryngeal surgace of epiglottis Soft Palate Elevation: No bolus between soft palate and pharyngeal wall Laryngeal Elevation: Partial superior movement thyroid cart/partial apprx aryt-epig petiole Anterior Hyoid Excursion: Partial anterior movement Epiglottic Movement: Complete inversion Laryngeal Vestibule Closure at Height of Swallow: Incomplete; narrow column of air/contrast in laryngeal vestibule Pharyngeal Stripping Wave: Present - complete Pharyngoesophageal Segment Opening: Parital distension and partial duration; parital obstruction of flow Tongue Base Retraction: Narrow column of contrast between tongue base & post. pharyngeal wall Pharyngeal Residue: Trace residue within or on pharyngeal structures - Esophageal Phase Esophageal Clearance: Esophageal retention w/ retrograde flow below pharyngoesophageal seg. - Diagnosis/Impression Diagnosis: mild-moderate oropharyngeal dysphagia Impression: The patient completed a modified barium swallow study this date. The patient completed trials of thin liquids with grade III aspiration (<10% of trial) with second teaspoon sip. The patient had suspicious throat clearing with thin liquid via single small sip from cup with aspiration unable to be definitively ruled out. The patient later presented with aspiration with cough reflex although ineffective at clearing with trials of nectar thick liquids via sequential sips from straw. The patient had slow but effective mastication of solid Carola Doone cookie. Education completed following MBS study including results of assessment, diet and compensatory strategy recommendations, oropharyngeal strengthening exercises, and how to thicken liquids and where to purchase. It is recommended patient continue with skilled ST intervention at next level of care. - Recommendations Diet: [place]-thick Liquids Comment: soft and bite sized textures Compensatory Strategies: Small Bites, Small Sips, No Straws, Slow Rate, Sitting upright, Remain sitting upright for 30 minutes after PO intake - pills whole followed by several small sips of liquid chaser. Supervision: Distant Supervision Recommend Repeat Modified Barium Swallow: Yes Comment: Recommending repeat MBS study in 6-[address] intervention. Need for Skilled Speech Therapy Services: Yes - continue ST intervention at next level of care Education Completed: 1. Described result of evaluation., 2. Pt understands evaluation & agrees with goals and treatment plan. - Status Active ST Patient: Active - Contact Information [facility] Speech Therapy:: Shannon Will MA, CCC-CONTROL ELECTRICIAN [place] [id number] [email or web address] 05/25/20 1431 <Electronically signed by Shannon Will CCC-CONTROL ELECTRICIAN, M.A.> Date Shannon Will CCC-CONTROL ELECTRICIAN, M.A. Co-Signature Required for all Medicare patients Date/Time Co-Signature CC: ~ Initialized on 06/02/20 11:53 - END OF NOTE Dysphagia Assessment - Swallowing Impairment Contributing Factors to Swallowing Impairment: Reduced Oral Strength/Coordination/Sensation, Impaired Oral-Pharyngeal Transport, Reduced Laryngeal Excursion - Impact Impact on Safety & Functioning: Risk for Aspiration - Recommendations Modified Barium Swallow/Cookie Swallow Recommended: Yes Swallowing Treatment: Yes - Diet Texture Recommendations Solids Other: Regular Liquids: [place] Thick [place] free water Protocol: No NPO: NPO - Safety Saftey Precautions/Swallowing Recommendations (Check all that Apply): Upright Position at Least 30 Minutes After Meals, Small Sips & Bites when Eating, No Straw Plan - Plan Plan: Speech therapy is warranted for mild to moderate oropharyngeal dysphagia. - Recommendations MBS: Yes Treatment Warranted: Yes - Frequency Frequency: Every Other Week Duration: 3 Months - Prognosis Prognosis: Good - Goals that are Established: Determination:: Goals will be added/modified as deemed necessary and appropriate. Therapy will be discontinued when results of re-evaluation indicate therapy is no longer needed or lack of progress has been documented. - Goal #1-5 Goal #1: The Patient will demonstrate and utilize recommended velopharyngeal and oropharyngeal strengthening exercises to facilitate improved velopharyngeal and oropharyngeal strength and coordination with minimal cueing and prompting provide by the clinician, across 2 to 2 sessions. Goal #2: The Patient will tolerate the least restrictive means of nutrition to facilitate adequate hydration/nutrition with optimum safety and efficiency of swallowing function during P.O. intake without overt signs and symptoms of aspiration. Goal #3: Repeat MBS. Education - Patient has Indicated that the Following Identified Educational Needs: None The Patient has indicated that they have no educational or learning abilities that may effect their care.: Yes - Patient Instruction Patient Education: Diagnosis, Treatment Plan, Goals, Home Exercise Program Person Taught: Patient Teaching Method: Discussion Response to teaching: Verbalize understanding
--- NOTE | 2020-06-11 14:47 | HP.PTEVAL ---
Patient's Visit Information BARBARA ALEJO is a 79 year old F referred to Physical Therapy by Dr. Darshan Sharma DO with a diagnosis of cva. Date of Evaluation: 06/11/20 Physical Therapist: Aaron Michael, JUDYT, OCS, CSCS - Visit Plan Duration: f/u 3 weeks Plan: Pt to f/u in 3 weeks to ensure progress with HEP in heaviness of legs and overall fatigue. wanted to try this vs frequent physical therapy. - Subjective I had a stroke 05/11/20. She fell on bottom step and was found at the bottom of the basement steps. Legs would not work to help her up, she broke two ribs. Went to hospital the next week wehn she felt terrible in her head adn low blood pressure. Went to ER as she thought she was having a stroke. Catscan showed stroke and MRI. Was in hospital 4 days. Then she went home. Legs both feel heavy when she walks. She has to be careful walking. Has walker at home that she can use but does not always. No more falls. Not feeling too unsteady. Sometimes feels weak in legs. No pain. neuropathy. Sleep is not great since the stroke but not great prior. Not employed. sits around alot at home. Does make meals when they are not delivered. She still does dishes. Dresses, bathes, bathroom herself. Needs help stepping over bathtub now to get into shower. Activities are at deficit for walking and cleaning as she is too tired. - Objective Walks slow at first but normal gait pattern. I transfers chair and bed without UE. Steps reciprocal with one rail, slight weakness L but mod I iwth rail. LE strength 4 L hip and ankle 4+ R, knee is 4 knee flexiona dn ext B. reflexes 2/3 patella and achilles. LE and UE AROM WFL. Eversion L ankle limited vs R but otherwise symmetrical. Sensation LE WNL to gross light touch. Motor coordination to reciprocal toe and hell tap is mild deficits. Heel to farmer test is good. B. - Balance Scores Functional Gait Assessment Score: 28 % Disability: 6.6700 - Goals Goal 1:: Pt report back to normal activitiy without leg heaviness at home Goal Time Frame: 2-4 Weeks - Rehabilitation Potential Physical Therapy Diagnosis: resolving weakness due to CVA Rehabilitation Potential: Good - Anticipated Interventions Patient/Client Instruction: Educate patient on: Condition, Plan of Care For the Purpose of:: To increase tolerance to activity/condition/position, To improve ability of physical actions for home/community/work/leisure Therapeutic Exercise to Include: Strength training For the Purpose of:: To improve muscle performance and motor function, To increase tolerance to activity/condition/position, To improve ability of physical actions for home/community/work/leisure Thank you for the opportunity to evaluate your patient. For Medicare and Medicare HMO plans, please review the plan of care and approve it. It will need to be FAXED BACK to us at [phone] for Medicare purposes. For Medicare only, by signing this I certify the plan of care. Please let me know if there are questions or concerns regarding this plan of care. Physician Signature: Date:
--- NOTE | 2020-06-28 09:47 | HP.PTREVAL_ITS ---
Dr. Darshan Sharma, DO, It has been my pleasure to treat BARBARA ALEJO over the last 2 visits for cva. Please see the progress note below for an update on the physical therapy plan of care! Subjective: Legs feel like they are heavy still. Feels like she doesn't have any energy. says she is moving around at home still more. Feels worn out. No pain. Balance feels good without walker. Is getting own meals and doing dishes. Is still not back to washing and cleaning as she just feels too tired. feels tired right away in the morniing and gets worse as day goes on. Objective/Function: 68 HR after sit to stand. 8 reps on 30 second sit t stand. balance still good. Strength in hips is 3/5 and knees ext flex 4- and ankles 4+. Sit to stand 7 reps without UE today then needed arms. Overall still feeling weak and ex may help her. Wishes to do it at home vs frequent therapy visits. Plan Plan: f/u 3 weeks for progression to walking, RDL, lunge, sidestep with band,s tep ups if improving. Pt to do ex at home in meantime. Goals Goal 1:: Pt report back to normal activitiy without leg heaviness at home Goal Time Frame: 2-4 Weeks Anticipated Interventions Patient/Client Instruction: Educate patient on: Condition, Plan of Care For the Purpose of:: To increase tolerance to activity/condition/position, To improve ability of physical actions for home/community/work/leisure Therapeutic Exercise to Include: Strength training For the Purpose of:: To improve muscle performance and motor function, To increase tolerance to activity/condition/position, To improve ability of physical actions for home/community/work/leisure Please do not hesitate to contact me at [phone] by phone or Fax: if you have questions or concerns regarding this new plan of care! Sincerely, Aaron Michael, DPT, OCS, CSCS
--- NOTE | 2020-07-13 13:57 | HP.SP.DC_ITS ---
ST Discharge Summary - Discharged: Discharge: Nani Meade is discharged from [facility] Speech therapy as of 06/28/20 as she is now on a regular diet with thin liquids. She was evaluated on 06/02/20 following a CVA with dysphagia as a result. Initially, she was on nectar thickened liquids. She was provided with a home program for exercises. She was treated for one session after her initial evaluation and she had no signs/symptoms of penetration or aspiration with thin liquids. A copy of this discharge summary will be sent to her referring physician. Thank you for allowing me to participate in the care of this patient.
== END 2020-06-28 19:00 | disposition home or self-care (01) ==
LOC: SP 10:00
PROVIDERS: PCP Family Medicine; Referring Provider Family Medicine; Visit Provider Family Medicine
DX: Z86.73 Personal history of transient ischemic attack (TIA), and cerebral infarction without residual deficits (principal)
CPT/HCPCS: 92526; 92610; 97110; 97162; 97530

== ENCOUNTER 2020-10-01 14:40 | Emergency (ER) | payer OTHER, SELFPAY ==
[2020-07-01 15:04] VITALS: BMI 23.3
[2020-10-01 14:41] VITALS: BP 138/67; PULSE 49; RESP 18; TEMP 36.6; O2SAT 99; BMI 21.4
--- NOTE | 2020-10-01 14:50 | EKG12_ITS ---
Test Reason : HEART BEATING Blood Pressure : / mmHG Vent. Rate : 051 BPM Atrial Rate : 051 BPM P-R Int : 166 ms QRS Dur : 076 ms QT Int : 428 ms P-R-T Axes : 061 009 009 degrees QTc Int : 394 ms Sinus bradycardia Otherwise normal ECG Confirmed by MARY DELEON, CATHY ([id number]), editor city [place] HO ([id number]) on 10/04/2020 11:13:47 A M Referred By: JANNIE Confirmed By:SKYE HERNANDEZ MD
[2020-10-01 14:52] VITALS: O2SAT 98
--- NOTE | 2020-10-01 14:58 | EX.ED.DYSGE1 ---
HPI History of Present Illness Chief Complaint: Hypotension Informant: patient Onset/Context/Timing Onset: Days Context: Gradual Onset Timing: Intermittent Current Severity: Moderate Maximum Severity: Moderate Narrative Narrative: The patient is a 80-year-old female medical history significant for prior stroke, NSTEMI, atrial fibrillation, who presents to the emergency department with chest tightness, shortness of breath, and alterations in blood pressure. History is hard to gather from the patient. She states he has been checking her blood pressure and its been anywhere from 63-48. She states for the past 3 days, she has been having intermittent chest tightness with some shortness of breath. Patient does have recent history of NSTEMI. She states she is been quiet with her medications. She states when she gets chest tightness, she will take an extra heart pill. She does not know what pill she is taking. Prior similar symptoms: Yes Recent Illness/Hospitalization: No PFSH [facility] Medical History Atherosclerotic heart disease of [place] coronary artery without angina pectoris Atypical chest pain Elevated LFTs Essential hypertension History of CVA (cerebrovascular accident) (05/22/20) History of left heart catheterization (06/15/20) History of non-ST elevation myocardial infarction (NSTEMI) (06/15/20) Hyperlipidemia New onset atrial fibrillation (06/15/20) Paroxysmal atrial fibrillation Home Medications alprazolam 0.125 mg PO QHS PRN 12/06/17 [History Last Taken 06/13/20] aspirin 81 mg PO DAILY@0800 tab.chew 05/25/20 [Rx Last Taken 06/13/20] acetaminophen 500 mg PO Q4H PRN PRN 06/14/20 [History Last Taken 06/14/20] magnesium oxide 400 mg PO DAILY 06/14/20 [History Last Taken 06/13/20] atorvastatin 80 mg tablet 80 mg PO QHS #90 tab 06/24/20 [Rx Last Taken Unknown] apixaban 5 mg tablet 5 mg PO BID #180 tab 07/01/20 [Rx Last Taken Unknown] metoprolol tartrate 25 mg tablet 12.5 mg PO BID #180 tablet 07/08/20 [Rx Last Taken Unknown] diltiazem HCl 120 mg capsule,24 hr,extended release 120 mg PO DAILY #30 cap 07/12/20 [Rx Last Taken Unknown] zolpidem 6.25 mg PO QHS 10/01/20 [History Last Taken Unknown] Allergy/AdvReac Type Severity Reaction Status Date / Time No Known Allergies Allergy Verified 10/01/20 14:44 Family History Mother Heart disease Father Heart disease Brother Heart disease Surgical History H/O: hysterectomy History of dilatation and curettage Hx of appendectomy Social History Smoking Status: Never smoker ROS ROS ED Constitutional Constitutional ED: Denies chills or fever(s) Eyes Eyes: Denies blurry vision or change in vision ENT ENT ED: Denies ear pain or sore throat Cardiovascular Cardiovascular: Reports chest pain; Denies palpitations Respiratory/Chest Respiratory/Chest: Reports dyspnea; Denies cough or dyspnea on exertion Gastrointestinal Gastrointestinal: Denies abdominal pain, nausea or vomiting Genitourinary Genitourinary ED: Denies dysuria or urinary frequency Musculoskeletal Musculoskeletal: Denies arthralgias or myalgias Integumentary Denies rash Neurologic Neurologic: Denies headache(s) or paresthesias Psychiatric Psychiatric: Denies anxiety or depression Endocrine Endocrinology: Denies polydipsia or polyuria Allergic/Immunologic Allergic/Immunologic ED: Denies urticaria EXAM Physical Exam Const Vital Signs: 10/01/20 14:41 10/01/20 14:52 Temperature 97.8 F Temperature Source Temporal Pulse Rate 49 L Respiratory Rate 18 Blood Pressure 138/67 H Blood Pressure Mean 90 Pulse Ox 99 98 Oxygen Delivery Method Room Air Room Air Positive well nourished and well developed General Appearance ED: well developed HEENT Reports normocephalic, head/scalp atraumatic and moist mucous membranes Eyes PERRL and EOMs intact bilaterally Neck no lymphadenopathy and supple General: Negative for tenderness Chest Wall inspection of chest normal Resp normal respiratory effort and clear to auscultation bilaterally Cardio regular rate, regular rhythm and no murmurs GI normal to inspection, nondistended, normoactive bowel sounds Palpation: Negative for tender, guarding or rebound tenderness present Back/Spine no CVA tenderness Cervical Spine: Negative for cervical spine tenderness Thoracic Spine / Upper Back: Negative for thoracic spinal tenderness Extremity normal to inspection General Extremety ED: Negative for tenderness Neuro oriented x3 and CN's II-XII intact bilaterally Neuro Narrative: No focal deficits appreciated. Sensorium / Orientation: alert Psych mental status grossly normal Skin no rashes or lesions noted, no wounds and skin turgor normal MDM MDM MDM Narrative Medical decision making narrative: Patient arrives concern for hypotension. However, her blood pressure is normal. She is had intermittent chest tightness and intermittent shortness of breath. With further discussion, she states that the symptoms have been chronic. I am concerned that the patient is falsely reading her pulse rate rather than her blood pressure on her monitor. She is not hypotensive here. She has no evidence of acute kidney injury. Her labs are unremarkable. Cardiac enzymes were negative. Chest x-ray reviewed by both myself and the radiologist shows no evidence of pleural effusion, CHF, or other dangerous process. The patient has remained symptom-free. She did have a heart catheterization 3 months ago without intervention. I have a very low suspicion for coronary cause of her symptoms. I do feel that she is likely just confusing the numbers on her monitor. After long discussion, she feels like she wants to go home and I feel this is reasonable. Impression 1. Atypical chest pain Lab Data Attestation: I reviewed the patient's lab results. Labs: Laboratory Results - last 24 hr 10/01/20 10/01/20 10/01/20 15:05 15:05 15:05 WBC 8.3 RBC 3.74 L Hgb 12.0 Hct 37.3 MCV 99.7 H MCH 32.1 H MCHC 32.2 RDW Std Deviation 51.2 H RDW Coeff of Haim 13.8 Plt Count 265 MPV 10.9 Immature Gran % (Auto) 0.200 Neut % (Auto) 55.3 Lymph % (Auto) 27.4 [place] % (Auto) 11.3 H Eos % (Auto) 5.4 H Baso % (Auto) 0.4 Absolute Neuts (auto) 4.6 Absolute Lymphs (auto) 2.28 Nucleated RBC % 0 Sodium 140 Potassium 4.2 Chloride 107 Carbon Dioxide 30.0 Anion Gap 3 L BUN 25 H Creatinine 1.17 H Estim Creat Clear Calc 34.22 Est GFR (MDRD) Af Amer 58 L Est GFR (MDRD) Non-Af 48 L BUN/Creatinine Ratio 21.4 H Glucose 92 Calcium 9.0 Magnesium 2.3 Troponin I < 0.015 B-Natriuretic Peptide 180.7 H Radiography Chest X-Ray - ED: 1 View, Read by ED Physician, Normal, Heart, Mediastinum, Bony Structures and Chronic Changes Diagnostic Testing: Radiology Impression Chest X-Ray 10/01/20 15:30 IMPRESSION: COPD. The lungs are clear. Electronically Signed: Ana Somers MD at 15:56 EDT Tel , Service support , Discharge Plan Triage Chief Complaint: Hypotension ED Provider: Case Moralez Dx/Rx/DC Orders Instructions: ED Chest Pain, Uncertain Cause Prescriptions: No Action apixaban 5 mg tablet 5 mg PO BID Qty: 180 RF: 3 alprazolam 0.25 MG tablet 0.125 mg PO QHS PRN (Reason: Anxiety) RF: 0 aspirin 81 MG tablet,chewable 81 mg PO DAILY@0800 RF: 0 acetaminophen 500 MG tablet 500 mg PO Q4H PRN PRN (Reason: Pain 1-10 Or Fever) RF: 0 magnesium oxide 400 MG tablet 400 mg PO DAILY RF: 0 zolpidem 6.25 mg Tablet,Ext Release Multiphase 6.25 mg PO QHS RF: 0 atorvastatin 80 mg tablet 80 mg PO QHS Qty: 90 RF: 3 metoprolol tartrate 25 mg tablet 12.5 mg PO BID Qty: 180 RF: 3 diltiazem HCl 120 mg capsule,extended release 24 hr 120 mg PO DAILY Qty: 30 RF: 11 Primary Care Provider: Darshan Sharma Referrals: Darshan Sharma DO [Primary Care Provider] -
[2020-10-01] MEDS: Aspirin 81 MG TAB.CHEW 324 MG PO (15:25)
--- NOTE | 2020-10-01 15:30 | RAD_ITS ---
STUDY: X-RAY CHEST REASON FOR EXAM: Female, 80 years old. Chest pain. TECHNIQUE: Single AP portable view of the chest. COMPARISON: 06/14/2020 FINDINGS: There is hyperinflation of the lungs consistent with chronic obstructive lung disease (COPD). The lungs are clear. There is no demonstrated pleural abnormality. Normal size heart. Normal mediastinum and guille. Normal visualized pulmonary arteries. There is atherosclerotic tortuosity of the aortic arch and descending thoracic aorta. Normal visualized thoracic spine. Normal visualized ribs, clavicles, and shoulders. There is no demonstrated abnormality of the visualized soft tissue structures of the upper abdomen. RAD/Chest 1 View (Portable) IMPRESSION: COPD. The lungs are clear. Electronically Signed: Ana Somers MD at 15:56 EDT Tel , Service support ,
[2020-10-01 15:40] LABS: Anion Gap 3 (5-15); BUN 25 mg/dL (7-18); BUN/Creat Ratio 21.4 RATIO (10-20); Chloride 107 mmol/L (98-107); Creatinine, Serum 1.17 mg/dL (0.55-1.02); EST Glomerular Filtration Rate 48 mL/min (>60); Est Glom Filt Rate - Afr Amer 58 mL/min (>60); Estimated Creatinine Clearance 34.22 ml/min; Glucose 92 mg/dL (74-106); Magnesium 2.3 mg/dL (1.6-2.6); Potassium 4.2 mmol/L (3.5-5.1); Sodium Level 140 mmol/L (136-145)
[2020-10-01 15:41] LABS: Absolute Lymphocyte Count 2.28 X10^3/uL (0.83-4.51); Absolute Neutrophil Count 4.6 X10^3/uL (2.0-7.7); Basophil# 0.03 X10^3/uL; Basophil% 0.4 % (0-1); Eosinophil# 0.45 X10^3/uL; Eosinophils% 5.4 % (0-5); Hematocrit 37.3 % (37-47); Lymphocyte # 2.28 X10^3/ul (0.83-4.51); Lymphocyte % 27.4 % (19-41); Mean Corp Hgb Conc 32.2 g/dL (32-36); Mean Corpuscular Hgb 32.1 pg (27.0-32.0); Mean Corpuscular Volume 99.7 fL (81-99); Mean Platelet Vol. 10.9 fl (6.2-12.0); Monocyte# 0.94 X10^3/uL; Monocyte% 11.3 % (0-10); NRBC Flagged by Analyzer 0 % (0-5); Neutrophil # 4.59 X10^3/uL (2.7-7.7); Neutrophil % 55.3 % (47-70); Platelet Count 265 K/mm3 (150-450); RBC Distribution Width CV 13.8 % (11.6-14.6); RBC Distribution Width SD 51.2 fl (35.1-43.9); Red Blood Count 3.74 M/mm3 (4.2-5.4); White Blood Count 8.3 K/mm3 (4.4-11.0)
[2020-10-01 16:02] LABS: BNP,B-Type NATRIURETIC PEPTIDE 180.7 pg/mL (0-100)
[2020-10-01 16:23] VITALS: BP 148/71
== END 2020-10-01 16:25 | disposition home or self-care (01) ==
LOC: ED 15:34
PROVIDERS: Emergency Provider Emergency Medicine; PCP Family Medicine
DX: R07.89 Other chest pain (principal); R06.00 Dyspnea, unspecified; I10 Essential (primary) hypertension; E78.5 Hyperlipidemia, unspecified; I25.2 Old myocardial infarction; I48.0 Paroxysmal atrial fibrillation; J44.9 Chronic obstructive pulmonary disease, unspecified; I25.10 Atherosclerotic heart disease of native coronary artery without angina pectoris; Z86.73 Personal history of transient ischemic attack (TIA), and cerebral infarction without residual deficits; Z79.01 Long term (current) use of anticoagulants; Z79.82 Long term (current) use of aspirin; Z79.899 Other long term (current) drug therapy
CPT/HCPCS: 71045; 80048; 83735; 83880; 84484; 85025; 93005; 99284; A4216

== ENCOUNTER → 2020-10-25 06:46 | Outpatient (CLI) | payer SELFPAY, OTHER ==
[2020-10-07 08:27] VITALS: BMI 23.1
--- NOTE | 2020-10-25 15:53 | STRESSREP ---
Stress Test Report Pharmacologic myocardial perfusion stress test. 80-year-old lady with a history of chest pain. Stress protocol: Resting EKG demonstrates sinus rhythm with a rate of 61 bpm. Normal intervals are noted resting blood pressure is 130/74 mmHg. 0.4 mg of regadenoson was infused per usual protocol followed by rapid intravenous saline flush injection continuous EKG monitoring was performed. At rest there were no ST or T wave changes noted to suggest abnormal flow reserve and at peak infusion nonspecific ST changes were noted with did not meet the criteria for ischemia. The maximum heart rate was 67 bpm which was 47% of max infected heart rate. The final blood pressure was 116/70 mmHg. The patient had experienced mild atypical chest pain throughout the test. Myocardial perfusion protocol. 10.7 mCi of technetium 99m sestamibi was injected at rest. 0.4 mg of regadenoson was infused per usual protocol. At peak infusion 32.1 mCi of technetium 99m sestamibi was injected stress images were obtained stress and rest images were reconstructed and compared in the short axis vertical long and horizontal long axis. Gated images were also obtained. Perfusion SPECT analysis: Review of the stress images demonstrate normal uptake of tracer noted in all areas of the myocardium. The resting images similarly demonstrate normal uptake of tracer noted in all areas of the myocardium. No areas of reversibility are noted to suggest ischemia no previous infarct is noted. Gated SPECT analysis: The gated ejection fraction is noted to be 81%. Conclusion: Normal pharmacologic myocardial perfusion stress test. Preserved ejection fraction.
== END ==
PROVIDERS: PCP Family Medicine; Referring Provider Nurse Practitioner Family; Visit Provider Nurse Practitioner Family
DX: I48.0 Paroxysmal atrial fibrillation (principal); I25.10 Atherosclerotic heart disease of native coronary artery without angina pectoris; I10 Essential (primary) hypertension; E78.5 Hyperlipidemia, unspecified; R07.9 Chest pain, unspecified
CPT/HCPCS: 78452; 93017; A9500; A4216; J2785

== ENCOUNTER → 2020-11-11 09:11 | Outpatient (CLI) | payer OTHER, SELFPAY ==
[2020-10-07 08:27] VITALS: BMI 23.1
--- NOTE | 2020-11-11 09:14 | US_ITS ---
STUDY: ABDOMINAL ULTRASOUND - RIGHT UPPER QUADRANT REASON FOR VISIT: Female, 80 years old CHOLECYSTITIS TECHNIQUE: Ultrasound evaluation of the right upper quadrant was performed with real-time and static huerta-scale imaging. TECHNICAL QUALITY: Adequate. COMPARISON: Comparison is made with prior ultrasound examination of 06/14/2020. FINDINGS: Liver: The liver measures 12 cm. There is normal echogenicity of the liver. The bile ducts are within normal limits. There is hepatic color flow. The direction of portal flow is hepatopetal. There is no demonstrated mass lesion. Gallbladder: Normal distended gallbladder. The gallbladder wall measures 1.4 mm. There is a negative sonographic Gibbs''s sign. There is no pericholecystic fluid. There are no gallstones. Common Bile Duct (C.B.D.): The common bile duct measures 5.8 mm. Pancreas: Normal size of the head, body and tail of the pancreas. There is normal echogenicity of the pancreas. There is no demonstrated pancreatic mass or cyst. Right Kidney: Normal size of the right kidney. The right kidney measures 9.4 cm x 4.6 cm x 3.1 cm. Normal renal cortex. The right cortex measures 1.1 cm. There is no demonstrated renal mass or cyst. There is an extra-renal pelvis of the right kidney. There is no distention of the renal calyces. US/Gallbladder IMPRESSION: Unremarkable examination. Electronically Signed: Son Vaughan MD at 10:29 EDT , Service support ,
== END ==
PROVIDERS: PCP Family Medicine; Referring Provider Family Medicine; Visit Provider Family Medicine
DX: K81.9 Cholecystitis, unspecified (principal)
CPT/HCPCS: 76705

== ENCOUNTER 2021-05-29 23:50 | Emergency (ER) | payer OTHER, SELFPAY ==
--- NOTE | 2021-05-29 00:09 | RAD_ITS ---
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 LUNGS: Hyperexpanded lungs. Small pulmonary granulomatous calcifications noted. No focal airspace consolidation. No pulmonary edema. No pleural effusion. No pneumothorax. MEDIASTINUM AND CARDIOVASCULAR STRUCTURES: Cardiac silhouette not enlarged. Central airways and mediastinal contour are unremarkable. BONES AND SOFT TISSUES: Skeletal degenerative changes with mild thoracolumbar scoliosis. Status post ORIF right proximal humerus. RAD/Chest 1 View (Portable) IMPRESSION: COPD at 0027 Reported and signed by: Maurizio Garcia MD Electronically Signed: Maurizio Garcia MD at 0:26 EST ,
[2021-05-29 23:51] VITALS: BP 179/105; PULSE 76; RESP 18; TEMP 36.2; O2SAT 97; BMI 22.8
--- NOTE | 2021-05-29 23:57 | EKG12_ITS ---
Test Reason : CP Blood Pressure : / mmHG Vent. Rate : 076 BPM Atrial Rate : 076 BPM P-R Int : 164 ms QRS Dur : 068 ms QT Int : 378 ms P-R-T Axes : 078 021 029 degrees QTc Int : 425 ms Normal sinus rhythm Normal ECG Confirmed by CHUY DELEON, JUAN CARLOS ([id number]), supervising editor news reel [email or web address] HO [id number]) on 05/31/2021 12:55:38 PM Referred By: CHAZ Confirmed By:JUAN CARLOS VERA MD
--- NOTE | 2021-05-29 23:58 | EDS_ITS ---
HPI History of Present Illness Chief Complaint: Chest Pain Informant: patient and family Narrative Narrative: History is from patient and daughter. Patient has not been informant for details fax and timing. We have to work quite some time to get exact details. It sounds like the patient had a fall in early April and had a compression fracture of her spine. Since that time her blood pressure has been hard to control. Her blood pressure will go up to the 150s and 190 systolic at times. Its not clear if her chest pain occurs with blood pressure elevations though. I cannot get this from her clearly. She also has intermittent times where her heart seems to race. But I also cannot get her to say if this correlates with chest pain or it does not. She has chest pain many days for at least a month now. It usually lasts about 15 minutes. It is not associated with dyspnea, lightheadedness, nausea vomiting or diaphoresis. She had a bad episode today in restorationism. This was about 1030 this morning. She cannot exactly tell me what made it bad. I cannot get if it was worse severity of pain or lasted longer. It did go away. However she had another episode somewhere this afternoon. Patient does have a history of heart disease. She had a heart attack and stroke in early 2020. She had had a heart catheterization a few years before that and had another one at the early . My suspicion is stents were placed. I will see if I can find these results on the computer. Patient is on Eliquis and aspirin and is taking both. She states she is on Eliquis to thin her blood but she did not know why. Her and her daughter think they might recognize the term atrial fibrillation. I do find on her record that she has had atrial fibrillation in the past. [facility] Medical History (Updated 05/30/21 @ 01:[address] Stella Schumacher MD) Atherosclerotic heart disease of [place] coronary artery without angina pectoris Atypical chest pain Elevated LFTs Essential hypertension History of CVA (cerebrovascular accident) (05/22/20) History of left heart catheterization (06/15/20) History of non-ST elevation myocardial infarction (NSTEMI) (06/15/20) Hyperlipidemia Paroxysmal atrial fibrillation Home Medications aspirin 81 mg PO DAILY@0800 tab.chew 05/25/20 [Rx Last Taken 06/13/20] apixaban 5 mg tablet 5 mg PO BID #180 tab 07/01/20 [Rx Last Taken Unknown] zolpidem 6.25 mg PO QHS 10/01/20 [History Last Taken Unknown] diltiazem HCl 120 mg capsule,24 hr,extended release 120 mg PO DAILY #90 cap 02/04/21 [Rx Last Taken Unknown] Allergy/AdvReac Type Severity Reaction Status Date / Time No Known Allergies Allergy Verified 05/29/21 23:58 Family History Mother Heart disease Father Heart disease Brother Heart disease Surgical History (Updated 05/30/21 @ 01:[address] Stella Schumacher MD) H/O: hysterectomy History of dilatation and curettage History of surgery on extremity Hx of appendectomy Social History Smoking Status: Never smoker ROS ROS ED Constitutional Constitutional ED: Denies chills or fever(s) ENT ENT ED: Denies rhinorrhea or sore throat Cardiovascular Cardiovascular: Reports chest pain and palpitations Respiratory/Chest Respiratory/Chest: Denies cough or dyspnea Gastrointestinal Gastrointestinal: Denies abdominal pain, nausea or vomiting Musculoskeletal Musculoskeletal: Denies arthralgias, back pain, myalgias or neck pain Integumentary Denies rash Neurologic Neurologic: Denies headache(s) Psychiatric Psychiatric: Denies anxiety Endocrine Endocrinology: Denies polydipsia or polyuria Allergic/Immunologic Allergic/Immunologic ED: Denies urticaria EXAM Physical Exam Const Vital Signs: 05/29/21 23:51 05/29/21 23:55 05/30/21 01:01 Temperature 97.1 F L Temperature Source Temporal Pulse Rate 76 72 Respiratory Rate 18 16 Respiratory Effort Normal Respiratory Pattern Normal Blood Pressure 179/105 H 163/99 H Blood Pressure Mean 129 120 Pulse Ox 97 98 Oxygen Delivery Method Room Air Room Air 05/30/21 01:02 Temperature Temperature Source Pulse Rate Respiratory Rate Respiratory Effort Respiratory Pattern Blood Pressure Blood Pressure Mean Pulse Ox Oxygen Delivery Method Room Air Positive well nourished and well developed Constitutional Narrative: Patient looks comfortable at this time. However, she feels at her baseline this time and is not having any symptoms. General Appearance ED: well developed and NAD; Negative for cyanotic, diaphoretic or pallor HEENT Reports moist mucous membranes Eyes General Eye ED: Negative for pale conjunctiva or scleral icterus Neck no JVD Chest Wall inspection of chest normal and palpation of chest normal Resp normal respiratory effort and clear to auscultation bilaterally Effort and Inspection: Negative for pain with movement Auscultation: Negative for rales or rhonchi Cardio regular rate, regular rhythm and no murmurs Rate: other Other Details: Patient does appear to be in regular rhythm at this time on the monitor. She does not appear to be in atrial fibrillation. GI normal to inspection, nondistended, normoactive bowel sounds and non-tender Palpation: soft Extremity normal to inspection General Extremety ED: Negative for edema or tenderness General Extremity: Negative for edema Neuro oriented x3 Sensorium / Orientation: alert Psych mental status grossly normal Skin no rashes or lesions noted and no wounds General Skin Exam: Negative for jaundice or pallor MDM MDM MDM Narrative Medical decision making narrative: Patient's blood work shows normal CBC. Electrolytes show minimal elevation in the BUN but preserved creatinine. Troponin is negative. Chest x-ray shows chronic COPD-like changes but no acute process. Patient's recheck. She is still asymptomatic. She wants to go home now. She states she feels well. She has been having intermittent sharp pain ever since her fall. She has no other symptoms. She has a heart score of 4. However most of these points are for her baseline age and risk factors. They are not based on her current story or her troponin. However, she still wants to go home. I did ask her if she could stay at least to get a repeat troponin. She asked how long that would be. She has now agreed to at least get the repeat troponin. Patient also had a normal perfusion stress test back in October of this year. Repeat troponin shows no significant elevation. Patient still asymptomatic. We will let her go home but have recommended close follow-up with her hoister and return with any further symptoms. Lab Data Attestation: I reviewed the patient's lab results. Labs: Laboratory Results - last 24 hr 05/29/21 05/29/21 05/30/21 23:17 23:17 01:22 WBC 6.2 RBC 3.79 L Hgb 12.7 Hct 38.2 MCV 100.8 H MCH 33.5 H MCHC 33.2 RDW Std Deviation 51.8 H RDW Coeff of Haim 13.9 Plt Count 292 MPV 9.8 Immature Gran % (Auto) 0.200 Neut % (Auto) 41.4 L Lymph % (Auto) 28.7 Fannin % (Auto) 13.6 H Eos % (Auto) 15.1 H Baso % (Auto) 1.0 Absolute Neuts (auto) 2.6 Absolute Lymphs (auto) 1.77 Nucleated RBC % 0 Sodium 139 Potassium 3.8 Chloride 107 Carbon Dioxide 29.0 Anion Gap 3 L BUN 29 H Creatinine 0.90 Estim Creat Clear Calc 42.62 Est GFR (MDRD) Af Amer 78 Est GFR (MDRD) Non-Af 64 BUN/Creatinine Ratio 32.2 H Glucose 94 Calcium 9.0 Troponin I High Sens 10 12 Radiography Diagnostic Testing: Clinical Impression(s) from Imaging Studies Chest X-Ray 05/29/21 00:09 IMPRESSION: COPD at 0027 Reported and signed by: Maurizio Garcia MD Electronically Signed: Maurizio Garcia MD at 0:26 EST , EKG Initial EKG: Comments: EKG done for history of chest pain read by me shows a normal sinus rhythm with overall rate of 76. No ectopy is noted. No acute ST elevation or depression. MD interval, QRS duration and QTc normal. This EKG is similar to 1 from October 07, 2020. Discharge Plan Triage Chief Complaint: Chest Pain ED Provider: Juan M Barreto Dx/Rx/DC Orders Clinical Impression: Intermittent chest pain Instructions: ED Chest Pain, Uncertain Cause Prescriptions: No Action apixaban 5 mg tablet 5 mg PO BID Qty: 180 RF: 3 aspirin 81 MG tablet,chewable 81 mg PO DAILY@0800 RF: 0 zolpidem 6.25 mg Tablet,Ext Release Multiphase 6.25 mg PO QHS RF: 0 diltiazem HCl 120 mg capsule,extended release 24 hr 120 mg PO DAILY Qty: 90 RF: 3 Primary Care Provider: Darshan Sharma Referrals: Gee Oneill MD [STAFF PHYSICIAN] - As soon as possible Darshan hSarma DO [Primary Care Provider] - Disposition Disposition: Home, Self Care
[2021-05-30 00:07] LABS: Absolute Lymphocyte Count 1.77 X10^3/uL (0.83-4.51); Absolute Neutrophil Count 2.6 X10^3/uL (2.0-7.7); Basophil# 0.06 X10^3/uL; Eosinophil# 0.93 X10^3/uL; Eosinophils% 15.1 % (0-5); Hematocrit 38.2 % (37-47); Hemoglobin 12.7 g/dL (12.0-15.0); Lymphocyte # 1.77 X10^3/ul (0.83-4.51); Lymphocyte % 28.7 % (19-41); Mean Corp Hgb Conc 33.2 g/dL (32-36); Mean Corpuscular Hgb 33.5 pg (27.0-32.0); Mean Corpuscular Volume 100.8 fL (81-99); Mean Platelet Vol. 9.8 fl (6.2-12.0); Monocyte# 0.84 X10^3/uL; Monocyte% 13.6 % (0-10); NRBC Flagged by Analyzer 0 % (0-5); Neutrophil # 2.55 X10^3/uL (2.7-7.7); Neutrophil % 41.4 % (47-70); Platelet Count 292 K/mm3 (150-450); RBC Distribution Width CV 13.9 % (11.6-14.6); RBC Distribution Width SD 51.8 fl (35.1-43.9); Red Blood Count 3.79 M/mm3 (4.2-5.4); White Blood Count 6.2 K/mm3 (4.4-11.0)
[2021-05-30 00:23] LABS: Anion Gap 3 (5-15); BUN 29 mg/dL (7-18); BUN/Creat Ratio 32.2 RATIO (10-20); Chloride 107 mmol/L (98-107); EST Glomerular Filtration Rate 64 mL/min (>60); Est Glom Filt Rate - Afr Amer 78 mL/min (>60); Estimated Creatinine Clearance 42.62 ml/min; Glucose 94 mg/dL (74-106); Potassium 3.8 mmol/L (3.5-5.1); Sodium Level 139 mmol/L (136-145); Troponin-I HS 10 pg/mL (3.0-54.0)
[2021-05-30 01:01] VITALS: BP 163/99; PULSE 72; RESP 16; O2SAT 98
[2021-05-30 01:54] LABS: Troponin-I HS 12 pg/mL (3.0-54.0)
[2021-05-30 02:03] VITALS: BP 155/82; PULSE 78; RESP 16; O2SAT 98
== END 2021-05-30 02:03 | disposition home or self-care (01) ==
PROVIDERS: Emergency Provider Emergency Medicine; PCP Family Medicine; Visit Provider Emergency Medicine
DX: R07.89 Other chest pain (principal); I48.0 Paroxysmal atrial fibrillation; I25.10 Atherosclerotic heart disease of native coronary artery without angina pectoris; I10 Essential (primary) hypertension; E78.5 Hyperlipidemia, unspecified; Z86.73 Personal history of transient ischemic attack (TIA), and cerebral infarction without residual deficits; I25.2 Old myocardial infarction; Z79.01 Long term (current) use of anticoagulants; Z79.82 Long term (current) use of aspirin; Z79.899 Other long term (current) drug therapy
CPT/HCPCS: 71045; 80048; 84484; 85025; 93005; 99284; A4216

== ENCOUNTER 2022-03-01 11:59 | Outpatient (CLI) | payer OTHER, SELFPAY | END 2022-03-01 23:59 | disposition home or self-care (01) | LOC: PSN 12:00 | PROVIDERS: PCP Family Medicine; Visit Provider Internal Medicine Cardiovascular Disease | DX: R00.0 Tachycardia, unspecified (principal); I48.0 Paroxysmal atrial fibrillation; R55 Syncope and collapse | CPT/HCPCS: 93225; 93226 ==

== ENCOUNTER 2024-12-18 19:50 | Emergency (ER) | payer OTHER, SELFPAY ==
[2024-12-18] VITALS (18 sets, daily range): BP systolic 140–160; BP diastolic 93–120; PULSE 92–118; RESP 16–20; TEMP 36.6; O2SAT 92–98; BMI 23.9
--- NOTE | 2024-12-18 19:54 | EKG12_ITS ---
Test Reason : CP Blood Pressure : */* mmHG Vent. Rate : 112 BPM Atrial Rate : * BPM P-R Int : * ms QRS Dur : 68 ms QT Int : 304 ms P-R-T Axes : * 4 1 degrees QTcB Int : 414 ms Atrial fibrillation with rapid ventricular response with premature ventricular or aberrantly conducted complexes Abnormal ECG Confirmed by MARY DELEON, CATHY ([id number]), newspaper editor EDGAR SANCHEZ ([id number]) on 12/22/2024 9:07:46 AM Referred By: Confirmed By: CATHY HERNANDEZ MD
--- NOTE | 2024-12-18 20:20 | RAD_ITS ---
PROCEDURE: CHEST 1 VIEW (PORTABLE) 12/18/2024 REASON FOR EXAM: CHEST PAIN TECHNIQUE: Frontal view of the chest. COMPARISON: 05/30/2021. FINDINGS: The heart is normal in size. The lungs are hyperaerated which may represent COPD. Small calcified granulomas. Possible calcified perihilar lymph nodes. No acute osseous abnormalities. RAD/Chest 1 View (Portable) IMPRESSION: No acute abnormalities. Chronic and ancillary findings as above. Reading Location: [id number]
[2024-12-18 20:32] LABS: Hematocrit 40.9 % (37-47); Hemoglobin 13.9 g/dL (12.0-15.0); Immature Granulocytes Count 0.010 X10^3/uL (0.0-0.0); Mean Corp Hgb Conc 34.0 g/dL (32-36); Mean Corpuscular Volume 95.1 fL (81-99); Mean Platelet Vol. 10.5 fl (6.2-12.0); NRBC Flagged by Analyzer 0 % (0-5); Platelet Count 251 K/mm3 (150-450); RBC Distribution Width CV 13.2 % (11.6-14.6); RBC Distribution Width SD 46.2 fl (35.1-43.9); Red Blood Count 4.30 M/mm3 (4.2-5.4); White Blood Count 6.5 K/mm3 (4.4-11.0)
[2024-12-18 20:52] LABS: Prothrombin Time (Protime)PT. 16.7 SECONDS (11.7-14.9)
[2024-12-18 20:58] LABS: Anion Gap 11 (5-15); BUN 19 mg/dL (4-19); BUN/Creat Ratio 18.3 RATIO (10-20); Calcium,Total 9.3 mg/dL (7.6-11.0); Carbon Dioxide 24.3 mmol/L (21.0-32.0); Chloride 101 mmol/L (98-108); Estimated Creatinine Clearance 34.83 ml/min (50-250); Glucose 94 mg/dL (70-99); Potassium 4.1 mmol/L (3.3-5.1); Troponin T High Sensitivity 16 ng/L (<=14)
[2024-12-18] MEDS: 0.9% Normal Saline (500mL Bag) 500 ML 999 ML IV (21:29)
[2024-12-18 21:31] LABS: AST(SGOT) 29 U/L (<=31); Alanine Aminotransfer ALT/SGPT 18 U/L (<=34); Albumin, Serum 3.9 g/dL (3.4-4.8); Alkaline Phosphatase 61 U/L (35-104); Bilirubin, Direct 0.15 mg/dL (0.00-0.30); Globulin 2.7 g/dL (2.2-4.2); Lipase 32 U/L (13-75)
--- NOTE | 2024-12-18 21:40 | CT_ITS ---
PROCEDURE: CTA CHST, ABD, PEL W AND/OR WO 12/18/2024 REASON FOR EXAM: STOMACH PAIN RADIATING TO BACK AND CHEST TECHNIQUE: Procedure Code: CTCTA.CHAP.2 Modality: CT Procedure: CTA CHST, ABD, PEL W AND/OR WO Coronal and Sagittal reconstruction series were provided. One or more dose reduction techniques were used (e.g., Automated exposure control, adjustment of the mA and/or kV according to patient size, use of iterative reconstruction technique. CONTRAST: Isovue-370 VOLUME: 100 mL RADIATION DOSE SUMMARY: CTDlvol: 12.1 mGy DLP: 755.87 mGycm COMPARISON: Ultrasound on 11/11/2020. FINDINGS: Mild cardiomegaly. Subsegmental atelectatic changes in the right middle lobe. Associated ground- glass densities are noted. Hypoventilatory pulmonary changes versus developing pneumonia. Benign scattered calcified pulmonary granulomas with the largest measuring 5 mm. Normal enhancement of the main pulmonary artery and right and left pulmonary arteries. Normal enhancement of the bilateral peripheral pulmonary arteries. There is no demonstrated pulmonary embolism. Normal thoracic aorta and visualized great vessels. There is no demonstrated aortic dissection. Normal pericardium. Normal mediastinum. Normal hilar regions. Normal visualized trachea and bronchi. Normal pleura. Normal liver. Normal gallbladder and extrahepatic biliary system. Normal spleen. Normal pancreas. Normal bilateral adrenal glands. Normal size of the right kidney. There is no right renal mass. There are no right renal calculi. There is no right hydronephrosis. Normal visualized right ureter. Mild chronic atrophy of the upper pole of the left kidney. There is no left renal mass. There are no left renal calculi. There is no left hydronephrosis. Normal visualized left ureter. Normal small intestine. Uncomplicated colonic diverticulosis. The appendix is visualized and appears normal. There is no demonstrated peritoneal fluid. Mild calcified atheromatous plaques of the tortuous, slightly ectatic abdominal aorta. Normal inferior vena cava. Normal retroperitoneum. Normal urinary bladder. There is no pelvic mass lesion or lymphadenopathy. There is no pelvic fluid. Prior hysterectomy. Normal abdominal wall. Mild chronic compression deformities of L1 and L2 vertebral bodies. Diffuse spondylosis. CT/CTA Chst, Abd, Pel W and/or WO IMPRESSION: Diffuse thickening of the stomach suggestive of gastritis. Airspace disease in the right middle lobe. Subsegmental atelectasis/hypoventil atory changes versus developing pneumonia. Diffuse thickening of the stomach suggestive of gastritis. No CT evidence of pulmonary embolus or aortic dissection. Reading [facility]
[2024-12-18 22:07] LABS: Mucous, Urine 0 SEEN /hpf (<or=2+); Red Blood Cells-Urine 0 SEEN /hpf (0-5); Squamous Epithelial Cells - UA 0 SEEN /hpf (5-10)
[2024-12-18 22:12] LABS: Color, Urine Yellow (Yellow); Glucose, Dipstick Normal (Normal); Ketone-Dipstick Negative (Negative); Leukocyte Esterase-Dipstick 500 /ul (Negative); Nitrite-Dipstick Negative (Negative); Occult Blood-Urine 25 /ul (Negative); Protein-Dipstick Negative (Negative); Specific Gravity, Urine 1.010 (1.002-1.030); Urine Bilirubin Dipstick Negative (Negative)
[2024-12-18 22:51] LABS: Troponin T High Sens 2 HR 18 ng/L (<=14)
[2024-12-19] VITALS: BP 141/110; PULSE 107; O2SAT 97
--- NOTE | 2024-12-19 00:15 | ED.VIS.CHEST ---
HPI History of Present Illness Chief Complaint: Chest Pain Informant: patient Narrative Narrative: Patient is an 84-year-old female with history of atrial fibrillation (on Eliquis and diltiazem), coronary artery disease, hypertension hyperlipidemia presenting with abdominal pain. Patient states that her stomach is evil it has been giving her trouble for the past few weeks. She states that over the past week has been worsening and now she is getting pain rating to her chest and sometimes in the middle of her back. She states that pain comes and goes but the stomach pain has been constant. States it is in the center of her abdomen. Has associated nausea but no vomiting. She states she has been having good bowel movements this week. Denies any black or blood in her stool. Denies any treatment abdominal surgeries. Notes this week she has been feeling good and she has been eating and drinking less. Denies any fevers. Denies any history of any stomach ulcers or biliary disease. No other complaints or concerns at this time. She did try some Tums at home with no relief of her symptoms [facility] Medical History Longstanding persistent atrial fibrillation Near syncope Tachycardia Bee sting Sprain of forearm, right Right arm pain Lumbar pain Radicular pain of left lower extremity Back pain Fall Fatigue Shortness of breath Chest pain Paroxysmal atrial fibrillation Elevated LFTs New onset atrial fibrillation (06/15/20) History of CVA (cerebrovascular accident) (05/22/20) Atherosclerotic heart disease of [place] coronary artery without angina pectoris History of non-ST elevation myocardial infarction (NSTEMI) (06/15/20) Hyperlipidemia History of left heart catheterization (06/15/20) Essential hypertension Atypical chest pain Home Medications ?Medication ?Instructions ?Recorded ?Last Taken ?Type aspirin 81 mg chewable tablet 81 mg PO DAILY@0800 05/25/20 06/13/20 Rx apixaban 5 mg tablet 5 mg PO BID #180 tabs 07/01/20 Unknown Rx diltiazem HCl 120 mg capsule,24 120 mg PO DAILY #90 caps 05/27/24 Unknown Rx hr,extended release vitamin B complex (Vitamins B 1 tab PO DAILY 12/18/24 Unknown History Complex tablet) pantoprazole 40 mg tablet,delayed 40 mg PO DAILY #30 tabs 12/19/24 Unknown Rx release Allergy/AdvReac Type Severity Reaction Status Date / Time No Known Allergies Allergy Verified 12/18/24 19:53 Family History Mother Heart disease Father Heart disease Brother Heart disease Surgical History History of surgery on extremity H/O: hysterectomy History of dilatation and curettage Hx of appendectomy Social History Smoking Status: Never smoker alcohol intake: never substance use type: does not use caffeine: No ROS ROS ED Constitutional Constitutional ED: Denies chills or fever(s) Cardiovascular Cardiovascular: Reports as per HPI and chest pain Respiratory/Chest Respiratory/Chest: Denies cough or dyspnea Gastrointestinal Gastrointestinal: Reports abdominal pain and nausea; Denies constipation, diarrhea, melena or vomiting Genitourinary Genitourinary ED: Denies dysuria or urinary frequency Musculoskeletal Musculoskeletal: Reports back pain; Denies myalgias Integumentary Denies rash Neurologic Neurologic: Denies weakness Hematologic/Lymphatic Hematologic/Lymphatic: Reports easy bleeding, easy bruising and other Details: On Eliquis EXAM Physical Exam Const Vital Signs: 12/18/24 19:51 12/18/24 20:08 12/18/24 20:20 Temperature 97.8 F Temperature Source Oral Pulse Rate 105 H 92 Respiratory Rate 20 H Blood Pressure 156/110 H Blood Pressure Mean 125 Pulse Ox 96 Oxygen Delivery Method Room Air Room Air 12/18/24 20:30 12/18/24 20:45 12/18/24 21:00 Temperature Temperature Source Pulse Rate 99 99 98 Respiratory Rate 16 Blood Pressure 157/100 H Blood Pressure Mean 119 Pulse Ox 98 98 Oxygen Delivery Method 12/18/24 21:15 12/18/24 21:30 12/18/24 21:30 Temperature Temperature Source Pulse Rate 103 H 100 Respiratory Rate Blood Pressure 157/120 H 157/120 H Blood Pressure Mean 132 132 Pulse Ox 95 97 Oxygen Delivery Method 12/18/24 21:45 12/18/24 21:45 12/18/24 22:04 Temperature Temperature Source Pulse Rate 106 H Respiratory Rate Blood Pressure 160/98 H 160/98 H Blood Pressure Mean 116 116 Pulse Ox 95 Oxygen Delivery Method 12/18/24 22:15 12/18/24 22:33 12/18/24 22:45 Temperature Temperature Source Pulse Rate 98 101 H Respiratory Rate 16 Blood Pressure 154/93 H Blood Pressure Mean 113 Pulse Ox 96 92 96 Oxygen Delivery Method 12/18/24 23:00 12/18/24 23:07 12/18/24 23:15 Temperature Temperature Source Pulse Rate 118 H Respiratory Rate Blood Pressure 154/93 H 160/106 H Blood Pressure Mean 113 121 Pulse Ox 96 95 Oxygen Delivery Method 12/18/24 23:16 12/18/24 23:30 12/18/24 23:45 Temperature Temperature Source Pulse Rate 110 H 105 H Respiratory Rate Blood Pressure 149/103 H 140/93 H Blood Pressure Mean 117 107 Pulse Ox 94 Oxygen Delivery Method 12/19/24 00:00 Temperature Temperature Source Pulse Rate 107 H Respiratory Rate Blood Pressure 141/110 H Blood Pressure Mean 120 Pulse Ox 97 Oxygen Delivery Method Positive well nourished and well developed General Appearance ED: well developed and NAD; Negative for pallor HEENT Reports moist mucous membranes Eyes PERRL and EOMs intact bilaterally General Eye ED: Negative for pale conjunctiva Neck supple and no JVD Chest Wall inspection of chest normal and palpation of chest normal Resp normal respiratory effort and clear to auscultation bilaterally Cardio regular rate and no murmurs Cardio Narrative: 2+ radial and DP pulses Rhythm: abnormal rhythm irregularly irregular GI soft to palpation, non-distended and no masses GI Narrative: Mild tenderness palpation epigastric region. Negative Gibbs sign Back/Spine no CVA tenderness Extremity normal to inspection Extremity Narrative: 1+ pedal edema present bilaterally Neuro oriented x3 Sensorium / Orientation: awake Motor Exam: Negative for general weakness Psych mental status grossly normal Skin no rashes or lesions noted General Skin Exam: Negative for jaundice or pallor Heart Score History: Slightly/Non-Suspicious ECG: Normal Age: >/= 65 years Risk Factors: >/= 3 Risk Factors or History of CAD Troponin: </= Normal Limit Score: 4 MDM MDM MDM Narrative Medical decision making narrative: Patient is an 84-year-old female presenting with worsening abdominal pain that rating to her chest and back. Differential includes is not limited to aortic dissection, pancreatitis, cholecystitis, choledocholithiasis, ascending cholangitis, peptic ulcer disease, gastritis, bleeding ulcer/perforated ulcer. Patient is nontoxic-appearing. She is mildly tachycardic and is atrial fibrillation which appears more of her baseline. Lab work largely unremarkable. High-sensitivity troponin minimally elevated at 16 and on repeat 18. Chest pain does not sound consistent with ACS, she does not have ischemic EKG changes so I do not think she requires further inpatient cardiac evaluation. Her hemoglobin is actually above her baseline and her BUN is normal so low suspicion for bleeding ulcer. Lipase is normal. Normal liver enzymes. CTA of the chest shows diffuse thickening of the stomach suggestive of gastritis. This is consistent with her clinical presentation. Otherwise no acute process. Patient is given a GI cocktail in the emergency room and started on pantoprazole. She is given first dose in the emergency room. Will be discharged home to follow-up outpatient with GI. Given return precautions. Discussed signs and symptoms of GI bleeding. She is agreeable this plan of care. Discharged home in stable condition. Patient is minimally tachycardic in the emergency room however she does have a history of atrial fibrillation and will take her diltiazem at home. Lab Data Attestation: I reviewed the patient's lab results. Labs: Laboratory Results - last 24 hr 12/18/24 12/18/24 12/18/24 20:18 22:02 22:26 WBC 6.5 RBC 4.30 Hgb 13.9 Hct 40.9 MCV 95.1 MCH 32.3 H MCHC 34.0 RDW Std Deviation 46.2 H RDW Coeff of [place]aim 13.2 Plt Count 251 MPV 10.5 Immature Gran % (Auto) 0.200 Neut % (Auto) 58.0 Lymph % (Auto) 30.6 [place] % (Auto) 9.8 Eos % (Auto) 1.1 Baso % (Auto) 0.3 Absolute Neuts (auto) 3.8 Absolute Lymphs (auto) 1.99 Nucleated RBC % 0 PT 16.7 H INR 1.3 Sodium 137 Potassium 4.1 Chloride 101 Carbon Dioxide 24.3 Anion Gap 11 BUN 19 Creatinine 1.03 Estim Creat Clear Calc 34.83 L Est GFR (MDRD) Non-Af 54 L BUN/Creatinine Ratio 18.3 Glucose 94 Calcium 9.3 Total Bilirubin 0.40 Direct Bilirubin 0.15 AST 29 ALT 18 Alkaline Phosphatase 61 Troponin T High Sens 16 H Troponin T Hi Sens 2 Hr 18 H Total Protein 6.6 Albumin 3.9 Globulin 2.7 Lipase 32 Urine Color Yellow Urine Clarity Clear Urine pH 8.0 Ur Specific [place] 1.010 Urine Protein Negative Urine Glucose (UA) Normal Urine Ketones Negative Urine Occult Blood 25 H Urine Nitrite Negative Urine Bilirubin Negative Urine Urobilinogen Normal Ur Leukocyte Esterase 500 H Urine RBC 0 SEEN Urine WBC 0-5 SEEN Ur Squamous Epith Cells 0 SEEN Urine Bacteria 0 SEEN Urine Mucus 0 SEEN Radiography Chest X-Ray - ED: 1 View, Read by ED Physician, Read by Radiologist and No Acute Disease Diagnostic Testing: Clinical Impression(s) from Imaging Studies Chest X-Ray 12/18/24 20:20 IMPRESSION: No acute abnormalities. Chronic and ancillary findings as above. Reading Location: [address] Chest/Abdomen/Pelvis CTA 12/18/24 21:40 IMPRESSION: Diffuse thickening of the stomach suggestive of gastritis. Airspace disease in the right middle lobe. Subsegmental atelectasis/hypoventilatory changes versus developing pneumonia. Diffuse thickening of the stomach suggestive of gastritis. No CT evidence of pulmonary embolus or aortic dissection. Reading Location: [place] [address] Rhythm Strip Rhythm Strip: A-fib Rate: 112 Ectopy: PVC(s) EKG Initial EKG: Attestation: I personally reviewed and interpreted this EKG as follows: Interpretation: Atrial Fibrillation Comments: Atrial fibrillation at a rate of 112 bpm Normal axis Normal intervals Normal ST segments PVC present Differential Diagnosis Chest pain/SOB: pulmonary embolism Reason(s) PE less likely: Positive for patient taking oral anticoagulants and ACS ACS: Positive for no evidence of ACS based on cardiac biomarkers, EKG without ischemia and history not suggestive of ischemia pain Abdominal Pain: Cholecystitis Reason(s) Cholecystitis less likely: NL Gall Bladder on imagng studies and other (Normal liver enzymes) and Pancreatitis Reason(s) Pancreatitis less likely: NL lab values Discharge Plan Triage Chief Complaint: Chest Pain Other Complaint: Abd Pain ED Provider: Aleisha Mccarthy Dx/Rx/DC Orders Clinical Impression: Gastritis, Abdominal pain, Paroxysmal atrial fibrillation Instructions: ED Gastritis (Adult) Prescriptions: New pantoprazole 40 mg tablet,delayed release (DR/EC) 40 mg PO DAILY Qty: 30 0RF No Action apixaban 5 mg tablet 5 mg PO BID Qty: 180 3RF diltiazem HCl 120 mg capsule,extended release 24hr 120 mg PO DAILY Qty: 90 3RF aspirin 81 MG tablet,chewable 81 mg PO DAILY@0800 0RF vitamin B complex [Vitamins B Complex] Tablet 1 tab PO DAILY Primary Care Provider: Laura Khan NP Referrals: Ra BelénhsDO deidre [Med Staff - Active Staff] - Laura Khan NP, [facility] [Primary Care Provider] - Activity Restrictions/Additional Instructions: Your CT shows inflammation of your stomach consistent with gastritis. Continue take your regular medications. You been started on an antacid. Please follow-up closely with the GI specialist to ensure that you are improving. If you develop black/blood in your stool or have worsening pain please return to the emergency room. You may take [id number] Tums and/or Maalox as well for breakthrough pain. Print Language: Hebrew Disposition Disposition: Home, Self Care
[2024-12-19] MEDS: Lidocaine 2% Viscous15 ML UDC 15 ML PO (00:18)
[2024-12-19 00:46] VITALS: BP 157/93; PULSE 100; RESP 16; TEMP 36.3; O2SAT 98
== END 2024-12-19 00:48 | disposition home or self-care (01) ==
PROVIDERS: Emergency Provider Emergency Medicine; PCP Nurse Practitioner Family; Visit Provider Emergency Medicine
DX: R10.9 Unspecified abdominal pain (principal); I48.0 Paroxysmal atrial fibrillation; I25.10 Atherosclerotic heart disease of native coronary artery without angina pectoris; K29.70 Gastritis, unspecified, without bleeding; E78.5 Hyperlipidemia, unspecified; Z90.710 Acquired absence of both cervix and uterus; I10 Essential (primary) hypertension; Z79.01 Long term (current) use of anticoagulants; Z79.899 Other long term (current) drug therapy; Z86.73 Personal history of transient ischemic attack (TIA), and cerebral infarction without residual deficits; I25.2 Old myocardial infarction; Z90.49 Acquired absence of other specified parts of digestive tract
CPT/HCPCS: 71045; 71275; 74174; 80048; 80076; 81001; 83690; 84484; 85025; 85610; 93005; 96361; 96374; 96375; 99284; Q9967; A4216; J2405

== ENCOUNTER 2025-02-11 07:19 | Day surgery (SDC) | payer SELFPAY, OTHER ==
--- NOTE | 2025-02-09 14:31 | PAT.ANESEVAL ---
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 When Was Last Pacemaker Check QUESTION #4 FULL TEXT: You/Your Family Experience fever (hyperthermia) with Anesthesia Last Oral Intake Last Oral intake: Last Oral Intake NPO since Meds taken in AM with sips of water? Meds patient instructed to take am of surgery PONV PONV - museum tour guide: PONV - museum tour guide Female Yes 02/09/25 13:43 HX of Motion Sickness No 02/09/25 13:43 HX of N/V After Surgery No 02/09/25 13:43 Non-Smoker Yes 02/09/25 13:43 Duration of Surgery greater No 02/09/25 13:43 than 60 minutes Number of Risk Factors 2 02/09/25 13:43 PONV Score Moderate Risk 02/09/25 13:43 Height & Weight Height & Weight: Anesthesia: Height & Weight Height 5 ft 3 in 12/18/24 19:51 Respiratory Assessment Respiratory Assessment - museum tour guide: Respiratory Tract Infection Hx - museum tour guide Hx Respiratory Tract Infection No 02/09/25 13:43 STOP Sleep Apnea STOP Sleep Apnea - museum tour guide: STOP Sleep Apnea - museum tour guide Hx Hypertension No 02/09/25 13:43 Hx Sleep Apnea No 02/09/25 13:43 CPAP BIPAP Do you snore loudly (louder No 02/09/25 13:43 than talking or can be heard Do you often feel tired/ No 02/09/25 13:43 fatigued/ sleepy during daytime? Has anyone observed you stop No 02/09/25 13:43 breathing during sleep? STOP Results Negative 02/09/25 13:43 QUESTION #5 FULL TEXT : Do you snore loudly (louder than talking or can be heard through closed doors)? 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 Specify any problems Hx of Preganancy in last 3 No 02/09/25 13:43 Months Nurse Filling Out Transfusion VCHRISTIN 02/09/25 13:43 & Questions: Date: 02/09/25 02/09/25 13:43 Time: 13:45 02/09/25 13:43 Patient unable to answer at this time (ie. confused, unrespo /Reproduction History /Reproductive History - museum tour guide: /Reproductive Hx- museum tour guide Hx Now No 02/09/25 13:43 Gestational Age (in weeks): EDC: Hx Hx Para Hx Section SAB No 02/09/25 13:43 [facility] Medical History (Updated 02/09/25 @ 13:43 by Yanet Le) Wears dentures Wears glasses Post-menopausal Depression Arthritis Easy bruising Excessive bleeding Back pain Difficulty swallowing Non-smoker Sleep apnea Shortness of breath on exertion Leg cramps Normal Holter exam History of echocardiogram History of stress test Chest pain Cardiology follow-up encounter A-fib Stroke Heart attack Bone fracture Longstanding persistent atrial fibrillation Near syncope Tachycardia Bee sting Sprain of forearm, right Right arm pain Lumbar pain Radicular pain of left lower extremity Back pain Fall Fatigue Shortness of breath Chest pain Paroxysmal atrial fibrillation Elevated LFTs New onset atrial fibrillation (06/15/20) History of CVA (cerebrovascular accident) (05/22/20) Atherosclerotic heart disease of [place] coronary artery without angina pectoris History of non-ST elevation myocardial infarction (NSTEMI) (06/15/20) Hyperlipidemia History of left heart catheterization (06/15/20) Atypical chest pain Home Medications ?Medication ?Instructions ?Recorded ?Last Taken ?Type aspirin 81 mg chewable tablet 81 mg PO DAILY@0800 05/25/20 02/07/25 Rx apixaban 5 mg tablet 5 mg PO BID #180 tabs 07/01/20 02/05/25 Rx diltiazem HCl 120 mg capsule,24 120 mg PO DAILY #90 caps 05/27/24 Unknown Rx hr,extended release vitamin B complex (Vitamins B 1 tab PO DAILY 12/18/24 Unknown History Complex tablet) pantoprazole 40 mg tablet,delayed 40 mg PO QDAY #30 tabs 01/20/25 Unknown Rx release Allergy/AdvReac Type Severity Reaction Status Date / Time No Known Allergies Allergy Verified 01/20/25 07:26 Family History Mother Heart disease Father Heart disease Brother Heart disease Surgical History History of surgery on extremity H/O: hysterectomy History of dilatation and curettage Hx of appendectomy Social History Smoking Status: Never smoker alcohol intake: never substance use type: does not use caffeine: No Audit: Pertinent Findings Pertinent Findings EKG Perinent findings: 12/18/2024. Atrial fibrillation with rapid ventricular response with PVCs or aberrant conducted complexes. Stress test pertinent findings: 10/25/2020. EF of 81%. No areas of reversibility are noted to suggest ischemia. No previous infarct. Echo (EF%) pertinent findings: 05/24/2020. EF is 60%. PASP is 32 mmHg. No aortic stenosis noted. Heart catheterization pertinent findings: 06/15/2020. EF of 50%. 70% stenosis in the proximal OM1. Recommend medical therapy. Consult pertinent findings: 05/27/2024. Misha SHANE. 1. Atherosclerotic heart disease of the [place] coronary arteries without angina-stable patient does not have any symptoms of angina. Continue current meds. No further testing at this time. 2. Hypertension-controlled. Continue current diltiazem. Occasional low blood pressures may be related to dehydration. Patient is reminded to keep hydrated. 3. Longstanding persistent atrial fibrillation-patient is not symptomatic. Heart rate is controlled. Continue current dose of diltiazem and her factor Xa inhibitor. Additional pertinent findings: Holter monitor. 03/01/2022. Base rhythm is normal sinus. 27 ventricular ectopic beats. No runs. Total of 1001 supraventricular ectopic beats comprising 0.5% of total complexes. No atrial fibrillation. Diary noted being tired, faint, heart beating faster/harder but did not put in times. Recommendation Anesthesia Recommendation Anesthesia recommendation: OPTIMIZED for anesthesia
[2025-02-11 08:42] VITALS: BP 143/95; PULSE 106; RESP 16; TEMP 36.2; O2SAT 99; BMI 22.4
--- NOTE | 2025-02-11 08:42 | PCM.PRE.AN2 ---
ASA Classification* ASA Classification ASA Classification: 3 Assessment & Plan Anesthesia* Anesthesia Assessment Anesthesia Assessment: Discussed sedation and/or anesthesia options, risks, benefits, and alternatives with patient/parents/legal guardian/POA. Questions invited. The patient/parents/legal guardian/POA seems to understand and agrees to proceed with anesthesia plan. Reviewed the physical assessment, medical history, allergy history and patient home medications list prior to surgery/procedure/anesthetic and documented any changes. Performed airway and anesthesia risk assessments. Anesthesia Type Anesthesia Type: MAC Anesthesia Focused Assessment* Airway Assessment Mouth opens: >3 cm Mallampati Score: II Labs Anesthesia Preop lab: CBC WBC, (4.4-11.0) 6.5 K/mm3 12/18/24, 20:18 RBC, (4.2-5.4) 4.30 M/mm3 12/18/24, 20:18 Hgb, (12.0-15.0) 13.9 g/dL 12/18/24, 20:18 Hct, (37-47) 40.9 % 12/18/24, 20:18 Plt Count, (150-450) 251 K/mm3 12/18/24, 20:18 CHEMISTRY Potassium, (3.3-5.1) 4.1 mmol/L 12/18/24, 20:18 Sodium, (133-145) 137 mmol/L 12/18/24, 20:18 Magnesium, (1.6-2.6) 2.3 mg/dL 10/01/20, 15:05 BUN, (4-19) 19 mg/dL 12/18/24, 20:18 Creatinine, (0.70-1.20) 1.03 mg/dL 12/18/24, 20:18 Glucose, (70-99) 94 mg/dL 12/18/24, 20:18 POC Glucose, (70-110) 83 mg/dL 05/22/20, 10:52 TSH, (0.358-3.74) 1.34 uIU/mL 06/15/20, 05:20 COAG PT, (11.7-14.9) 16.7 SECONDS H 12/18/24, 20:18 Pre-Assessment Diagnosis/Proposed Procedure Planned Operative Procedure(s): COLONOSCOPY/EGD Anesthesia History Anesthesia History - craps manager: Anesthesia History - craps manager Hx Hospitalization No 02/09/25 13:43 Any Problems With Anesthesia No 02/09/25 13:43 Cholinesterase deficiency No 02/09/25 13:43 You/Your Family Experience No 02/09/25 13:43 fever (hyperthermia) with Relationship Recent Exposure to Contagious Disease Does patient have nerve No 02/09/25 13:43 stimulator Patient instructed to have device shut off --Does patient have Pacemaker or ICD? When Was Last Pacemaker Check QUESTION #4 FULL TEXT: You/Your Family Experience fever (hyperthermia) with Anesthesia Last Oral Intake Last Oral intake: Last Oral Intake NPO since Meds taken in AM with sips of water? Meds patient instructed to take am of surgery PONV PONV - craps manager: PONV - craps manager Female Yes 02/09/25 13:43 HX of Motion Sickness No 02/09/25 13:43 HX of N/V After Surgery No 02/09/25 13:43 Non-Smoker Yes 02/09/25 13:43 Duration of Surgery greater No 02/09/25 13:43 than 60 minutes Number of Risk Factors 2 02/09/25 13:43 PONV Score Moderate Risk 02/09/25 13:43 Height & Weight Height & Weight: Anesthesia: Height & Weight Height 5 ft 3 in 12/18/24 19:51 Respiratory Assessment Respiratory Assessment - craps manager: Respiratory Tract Infection Hx - craps manager Hx Respiratory Tract Infection No 02/09/25 13:43 STOP Sleep Apnea STOP Sleep Apnea - craps manager: STOP Sleep Apnea - craps manager Hx Hypertension No 02/09/25 13:43 Hx Sleep Apnea No 02/09/25 13:43 CPAP BIPAP Do you snore loudly (louder No 02/09/25 13:43 than talking or can be heard Do you often feel tired/ No 02/09/25 13:43 fatigued/ sleepy during daytime? Has anyone observed you stop No 02/09/25 13:43 breathing during sleep? STOP Results Negative 02/09/25 13:43 QUESTION #5 FULL TEXT : Do you snore loudly (louder than talking or can be heard through closed doors)? 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 Specify any problems Hx of Preganancy in last 3 No 02/09/25 13:43 Months Nurse Filling Out Transfusion VCHRISTIN 02/09/25 13:43 & Questions: Date: 02/09/25 02/09/25 13:43 Time: 13:45 02/09/25 13:43 Patient unable to answer at this time (ie. confused, unrespo /Reproduction History /Reproductive History - craps manager: /Reproductive Hx- craps manager Hx Now No 02/09/25 13:43 Gestational Age (in weeks): EDC: Hx Hx Para Hx Section SAB No 02/09/25 13:43 Active Medications Active Medications: Current Medications Generic Name Dose Route Start Last Admin Trade Name Freq PRN Reason Stop Dose Admin Lactated Ringer's 1,000 mls @ 15 mls/hr 02/11/25 08:30 IV .Q48H ROSANNE PFSH Medical History Wears dentures Wears glasses Post-menopausal Depression Arthritis Easy bruising Excessive bleeding Back pain Difficulty swallowing Non-smoker Sleep apnea Shortness of breath on exertion Leg cramps Normal Holter exam History of echocardiogram History of stress test Chest pain Cardiology follow-up encounter A-fib Stroke Heart attack Bone fracture Longstanding persistent atrial fibrillation Near syncope Tachycardia Bee sting Sprain of forearm, right Right arm pain Lumbar pain Radicular pain of left lower extremity Back pain Fall Fatigue Shortness of breath Chest pain Paroxysmal atrial fibrillation Elevated LFTs New onset atrial fibrillation (06/15/20) History of CVA (cerebrovascular accident) (05/22/20) Atherosclerotic heart disease of [place] coronary artery without angina pectoris History of non-ST elevation myocardial infarction (NSTEMI) (06/15/20) Hyperlipidemia History of left heart catheterization (06/15/20) Atypical chest pain Home Medications ?Medication ?Instructions ?Recorded ?Last Taken ?Type aspirin 81 mg chewable tablet 81 mg PO DAILY@0800 05/25/20 02/07/25 Rx apixaban 5 mg tablet 5 mg PO BID #180 tabs 07/01/20 02/05/25 Rx diltiazem HCl 120 mg capsule,24 120 mg PO DAILY #90 caps 05/27/24 02/11/25 06:00 Rx hr,extended release vitamin B complex (Vitamins B 1 tab PO DAILY 12/18/24 Unknown History Complex tablet) pantoprazole 40 mg tablet,delayed 40 mg PO QDAY #30 tabs 01/20/25 Unknown Rx release Allergy/AdvReac Type Severity Reaction Status Date / Time No Known Allergies Allergy Verified 02/11/25 08:41 Family History Mother Heart disease Father Heart disease Brother Heart disease Surgical History History of surgery on extremity H/O: hysterectomy History of dilatation and curettage Hx of appendectomy Social History Smoking Status: Never smoker alcohol intake: never substance use type: does not use caffeine: No Review of Systems (Anesthesia) ROS Narrative System reviewed and no additional complaints, except as documented.
[2025-02-11] MEDS: Lactated Ringers 1,000 ML 15 ML IV (08:50)
--- NOTE | 2025-02-11 09:37 | PCM.HP.STD ---
HPI - General General Date of Admission: 02/11/25 Date of Service: 02/11/25 Chief Complaint: Abdominal pain with nausea, lack of appetite and weight loss. HPI Narrative NANI ALEJO, is a 84 F who presents [Chief Complaint: Abdominal pain with nausea, lack of appetite and weight loss. [facility] ED 12/18/2024 with epigastric pain radiating to the chest in the middle of her back. Lab work was largely unremarkable. CT of the chest shows diffuse thickening of the stomach suggestive of gastritis. Symptoms resolved with GI cocktail. CTA chest abdomen pelvis 12/18/2024Diffuse thickening of the stomach suggestive of gastritis. Airspace disease in the right middle lobe. Subsegmental atelectasis/hypoventilatory changes versus developing pneumonia. Diffuse thickening of the stomach suggestive of gastritis. No CT evidence of pulmonary embolus or aortic dissection. OV 01/20/25 patient with continued lower left quadrant abdominal pain. Pain started around October or November and prior to this she has never had this pain before. She describes pain as a dull and achy but can become sharp at times. She has had a loss of appetite and has lost a few pounds due to decreased oral intake. She drinks Ensure to increase her caloric intake. She has a history of constipation and takes magnesium for this. She typically has a bowel movement daily but may go every other day. Bowel movements do not relieve her pain. She denies epigastric pain. She did finish the pantoprazole which she was given in the ER however this did not make much of a difference to her symptoms. Patient has never had a colonoscopy or EGD. She is status post appendectomy and hysterectomy. [facility] Medical History Wears dentures Wears glasses Post-menopausal Depression Arthritis Easy bruising Excessive bleeding Back pain Difficulty swallowing Non-smoker Sleep apnea Shortness of breath on exertion Leg cramps Normal Holter exam History of echocardiogram History of stress test Chest pain Cardiology follow-up encounter A-fib Stroke Heart attack Bone fracture Longstanding persistent atrial fibrillation Near syncope Tachycardia Bee sting Sprain of forearm, right Right arm pain Lumbar pain Radicular pain of left lower extremity Back pain Fall Fatigue Shortness of breath Chest pain Paroxysmal atrial fibrillation Elevated LFTs New onset atrial fibrillation (06/15/20) History of CVA (cerebrovascular accident) (05/22/20) Atherosclerotic heart disease of [place] coronary artery without angina pectoris History of non-ST elevation myocardial infarction (NSTEMI) (06/15/20) Hyperlipidemia History of left heart catheterization (06/15/20) Atypical chest pain Home Medications ?Medication ?Instructions ?Recorded ?Last Taken ?Type aspirin 81 mg chewable tablet 81 mg PO DAILY@0800 05/25/20 02/07/25 Rx apixaban 5 mg tablet 5 mg PO BID #180 tabs 07/01/20 02/05/25 Rx diltiazem HCl 120 mg capsule,24 120 mg PO DAILY #90 caps 05/27/24 02/11/25 06:00 Rx hr,extended release vitamin B complex (Vitamins B 1 tab PO DAILY 12/18/24 Unknown History Complex tablet) pantoprazole 40 mg tablet,delayed 40 mg PO QDAY #30 tabs 01/20/25 Unknown Rx release Allergy/AdvReac Type Severity Reaction Status Date / Time No Known Allergies Allergy Verified 02/11/25 08:41 Family History Mother Heart disease Father Heart disease Brother Heart disease Surgical History History of surgery on extremity H/O: hysterectomy History of dilatation and curettage Hx of appendectomy Social History Smoking Status: Never smoker alcohol intake: never substance use type: does not use caffeine: No ROS Constitutional Constitutional: Denies fatigue, fever(s), poor appetite, weight gain or weight loss Gastrointestinal Gastrointestinal: Denies belching, bloating, change in bowel habits, change in stool character, chewing difficulty, coffee ground emesis, constipation, cramping, diarrhea, dyspepsia, dysphagia, early satiety, excessive flatus, fecal incontinence, heartburn, hematemesis, hematochezia, hemorrhoids, loose stools, melena, nausea, odynophagia, rectal bleeding, tenesmus, vomiting or weight changes Vital Signs Vital Signs Vital Signs: 02/11/25 08:42 02/11/25 08:42 Temperature 97.2 F L Temperature Source Temporal Pulse Rate 106 H Respiratory Rate 16 Respiratory Pattern Normal Blood Pressure 143/95 H Blood Pressure Mean 111 Blood Pressure Source Monitor Blood Pressure Position Semi-Fowlers Blood Pressure Location Left Arm Pulse Ox 99 Oxygen Delivery Method Room Air Weight Weight: 127 lb Body Mass Index (BMI) 22.4 Physical Exam Const alert, oriented x3, no apparent distress and healthy appearing General Appearance: cooperative GI normal to inspection, nondistended, normoactive bowel sounds, soft to palpation, non-tender and non-distended Percussion: normal to percussion Rectal Exam: deferred Assessment & Plan Assessment/Plan (1) Nausea: (2) Loss of appetite: (3) Weight loss: PLAN: Assessment and Plan Assessment and Plan (1) Abdominal pain: Status: Inactive Plan: Nani is an 84-year-old female patient here today for evaluation of left lower quadrant pain associated with nausea and loss of appetite x 4 months. Patient presented to [facility] ED regarding this pain and workup was largely unremarkable. CTA abdomen chest pelvis did show gastritis but no abnormality of the colon. She was started on pantoprazole 40 mg daily and finished this prescription. She did not notice much relief in her symptoms. Patient does endorse a history of constipation and takes magnesium for this however she does not feel the constipation is related to her pain. Pain is in the left lower quadrant not epigastric therefore do not believe the gastritis is the cause of her pain. I recommended stool testing to rule out infection or inflammation however she declines. She is agreeable to having a colonoscopy and EGD for assessment of her symptoms and was scheduled for this today. I have prescribed pantoprazole 40 mg for at least 3 months and dicyclomine 10 mg as needed for abdominal pain. - EGD - Colonoscopy - Continue pantoprazole 40 mg daily - Dicyclomine as needed - Follow-up after endoscopy (2) Loss of appetite: Status: Acute (3) Nausea: Status: Acute Medications: New pantoprazole 40 mg PO QDAY 30 tabs 3RF dicyclomine 10 mg PO BID 20 caps 1RF ]
--- NOTE | 2025-02-11 09:45 | COLBX_PTH ---
PATIENT: BARBARA ALEJO LOC: [facility] U#:[id number] AGE/SX: 84/F ROOM: RE02/11/[address]: Dr. Marcel Melissa DO : 1940 BED: DIS: 02/11/2025 SPEC #: [id number] RECD: 02/11/25 11:42 STATUS: ZARINA REJaneth #: [id number] ISELA: 02/11/25 09:[address]: Marcel Melissa DEPT: SURGICAL PATHOLOGY RECD BY: Howard Pichardo ENTERED: 02/11/25 15:55 SP TYPE: COLON BX OTHR DR: Laura Khan, E [employer] DEVELOPER-C Tissues: A - Gastric mucous membrane B - Duodenum, NOS C - Cecum, NOS D - Cecum, NOS E - COLON BIOPSY F - Rectum, NOS Procedures: Immunohistochemical Stains Surgery Specimen Level IV HEADER OPERATION: Colonoscopy with biopsy, EGD with biopsy PRE-OP DIAGNOSIS: Nausea, loss of appetite, weight loss TISSUE SUBMITTED: A- Gastric body biopsy, B- Duodenum biopsy, C- Cecum biopsy, D- Cecum polyp biopsy x2, E- Hepatic flexure polyp biopsy x4, F- Rectal polyp biopsy MICROSCOPIC DIAGNOSIS A. Gastric body, biopsy: - Antral and oxyntic mucosa with features of reactive gastropathy. - IHC negative for H. pylori organisms. B. Duodenum, biopsy: - Normal villous architecture with no specific pathologic change. - Negative for increased intraepithelial lymphocytes. C. Cecum, biopsy: - Polypoid colonic mucosa with mild acute inflammation and small mucosal lymphoid aggregate. D. Cecum, polyp, biopsy: - Tubular adenoma. - Melanosis coli. E. Hepatic flexure, polyp, biopsy: - Tubular adenoma. - Melanosis coli. F. Rectum, polyp, biopsy: - Mucosal prolapse. - Melanosis coli. MICROSCOPIC DESCRIPTION Slides are reviewed. All matched controls reacted appropriately. These tests were developed and their performance characteristics determined by [facility]. They may not have been cleared or approved by the U.[place]. Food and Drug Administration. The FDA has determined that such clearance or approval is not necessary. The above immunohistochemical markers and/or special?stains have been reviewed by the Pathologist. GROSS DESCRIPTION A. Received in fixative is one container labeled with the patient's name and designated Gastric body biopsy. The specimen consists of multiple irregular fragments of peoples tissue that in aggregate measure 1 x 0.5 x 0.1 cm. The specimen is totally submitted in one cassette. B. Received in fixative is one container labeled with the patient's name and designated Duodenum biopsy. The specimen consists of two irregular fragments of peoples tissue that measure 0.3 and 0.4 cm. The specimen is totally submitted in one cassette. C. Received in fixative is one container labeled with the patient's name and designated Cecum biopsy. The specimen consists of one irregular fragment of peoples tissue that measures 0.2 cm. The specimen is totally submitted in one cassette. D. Received in fixative is one container labeled with the patient's name and designated Cecum polyp biopsy. The specimen consists of multiple irregular fragments of peoples tissue that in aggregate measure 1.5 x 0.6 x 0.2 cm. The specimen is totally submitted in one cassette. E. Received in fixative is one container labeled with the patient's name and designated Hepatic flexure polyp biopsy. The specimen consists of multiple irregular fragments of peoples tissue that in aggregate measure 1.4 x 0.5 x 0.1 cm. The specimen is totally submitted in one cassette. F. Received in fixative is one container labeled with the patient's name and designated Rectal polyp biopsy. The specimen consists of one irregular fragment of peoples tissue that measures 0.4 cm. The specimen is totally submitted in one cassette. CO 02/11/2025 CPT:[id number]
[2025-02-11 10:20] VITALS: BP 110/79; BP 143/95; PULSE 83; RESP 16; TEMP 36.3; O2SAT 96
[2025-02-11 10:25] VITALS: BP 104/90; BP 143/95; PULSE 84; RESP 16; O2SAT 97
--- NOTE | 2025-02-11 10:25 | OP.EGD_ITS ---
Patient Name: Nani Meade
--- NOTE | 2025-02-11 10:27 | POSTOP.ANE_ITS ---
Anesthesia: Postop Eval I
--- NOTE | 2025-02-11 10:27 | PCM.POST.ANE ---
Anesthesia: Postop Eval I Current Vital Signs Temperature: 97.6 F Pulse Rate: 67 Blood Pressure: 110/79 Respiratory Rate: 16 Pulse Ox: 97 Oxygen Delivery Method: Room Air Assessment Airway patent: Yes Spontaneous unlabored respirations: Yes Mental status: Asleep nausea: No Vomiting: No Anesthesia Complication: No Fluid Hydration Crystalloid volume administer (ml): 500 Total IV fluid infused: 500 Progress Note Anesthesia document: Postop Eval 1 completed: Yes
[2025-02-11 10:28] VITALS: BP 110/79; PULSE 67; RESP 16; TEMP 36.4; O2SAT 97
[2025-02-11 10:30] VITALS: BP 106/82; BP 143/95; PULSE 83; RESP 16; TEMP 36.1; O2SAT 98
--- NOTE | 2025-02-11 10:32 | OP.COLON_ITS ---
Patient Name: Nani Meade
--- NOTE | 2025-02-11 10:34 | POSTOPAN2_ITS ---
Anesthesia Postop Eval I Sum
--- NOTE | 2025-02-11 10:34 | PCM.POSTANE2 ---
Anesthesia Postop Eval I Sum Postop Eval Completion status Anesthesia document: Postop Eval 1 completed: Yes Anesthesia Postop Eval I Summary Anesthesia Postop Eval I Summary: Anesthesia Postop Eval I: Assessment Summary Airway patent Yes 02/11/25 10:28 [email or web address] Spontaneous unlabored Yes 02/11/25 10:28 [email or web address] respirations Mental status Asleep 02/11/25 10:28 [email or web address] nausea No 02/11/25 10:28 [email or web address] Vomiting No 02/11/25 10:28 [email or web address] Anesthesia Postop Eval I: Fluid Summary Crystalloid volume administer 500 02/11/25 10:28 [email or web address] (ml) Colloids volume administered ( ml) Blood Product volume administered (ml) Total IV fluid infused 500 02/11/25 10:28 [email or web address] Anesthesia Postop Eval I: Summary Notes Anesthesia Complication No 02/11/25 10:28 [email or web address] Anesthesia Complication Comment: Post-operative progress note Anesthesia: Postop Eval II Evaluation Mental status: Awake Pain Level: 0 nausea: No Vomiting: No
[2025-02-11 11:33] VITALS: BP 143/95
== END 2025-02-11 11:35 | disposition home or self-care (01) ==
LOC: EN 07:21 → AC 07:23
PROVIDERS: PCP Nurse Practitioner Family; Referring Provider Nurse Practitioner Family; Visit Provider Internal Medicine Gastroenterology
PROC: 0DJD8ZZ Inspection of Lower Intestinal Tract, Via Natural or Artificial Opening Endoscopic (ICD-10-PCS; CPT 45378; principal; 2025-02-11 09:40)
DX: R10.32 Left lower quadrant pain (principal); I48.0 Paroxysmal atrial fibrillation; K44.9 Diaphragmatic hernia without obstruction or gangrene; Z79.82 Long term (current) use of aspirin; Z90.89 Acquired absence of other organs; Z79.01 Long term (current) use of anticoagulants; I25.10 Atherosclerotic heart disease of native coronary artery without angina pectoris; Z90.710 Acquired absence of both cervix and uterus; R63.0 Anorexia; R11.0 Nausea; K57.30 Diverticulosis of large intestine without perforation or abscess without bleeding; K63.89 Other specified diseases of intestine; K62.1 Rectal polyp; E78.5 Hyperlipidemia, unspecified; R63.4 Abnormal weight loss; Z86.73 Personal history of transient ischemic attack (TIA), and cerebral infarction without residual deficits; I25.2 Old myocardial infarction; Z90.49 Acquired absence of other specified parts of digestive tract; Z68.22 Body mass index [BMI] 22.0-22.9, adult; K22.4 Dyskinesia of esophagus; K31.89 Other diseases of stomach and duodenum; K63.5 Polyp of colon; D12.0 Benign neoplasm of cecum; K62.3 Rectal prolapse; K35.80 Unspecified acute appendicitis
CPT/HCPCS: 44361; 45380; 88305; 88342; J2405

== ENCOUNTER 2025-02-11 17:03 | Emergency (ER) | payer OTHER, SELFPAY ==
[2025-02-11 17:03] VITALS: BP 139/101; PULSE 105; RESP 16; TEMP 36.3; O2SAT 97
[2025-02-11 17:05] VITALS: BMI 20.7
--- NOTE | 2025-02-11 17:34 | ED.VIS.GI ---
HPI HPI - GI History of Present Illness Chief Complaint: GI Bleed Informant: patient and family Diarrhea/Melena/Hematochezia GI Symptom: Positive for Hematochezia Onset: Today Severity: Mild Narrative Narrative: 84-year-old female history of A-fib on Eliquis and aspirin. Stopped Eliquis last Sunday and the aspirin the last several days. Had a colonoscopy today. Had 6 polyps resected and some biopsies. She has had intermittent rectal bleeding of dark blood since that time. No hematemesis. No abdominal pain. No fever. Family spoke to her orientor who sent her in the ER for further evaluation. She is never had internal bleeding before. She did need a blood transfusion years ago after hysterectomy. Prior similar symptoms: No Recent Illness/Hospitalization: No PFSH PFSH Medical History Wears dentures Wears glasses Post-menopausal Depression Arthritis Easy bruising Excessive bleeding Back pain Difficulty swallowing Non-smoker Sleep apnea Shortness of breath on exertion Leg cramps Normal Holter exam History of echocardiogram History of stress test Chest pain Cardiology follow-up encounter A-fib Stroke Heart attack Bone fracture Longstanding persistent atrial fibrillation Near syncope Tachycardia Bee sting Sprain of forearm, right Right arm pain Lumbar pain Radicular pain of left lower extremity Back pain Fall Fatigue Shortness of breath Chest pain Paroxysmal atrial fibrillation Elevated LFTs New onset atrial fibrillation (06/15/20) History of CVA (cerebrovascular accident) (05/22/20) Atherosclerotic heart disease of [place] coronary artery without angina pectoris History of non-ST elevation myocardial infarction (NSTEMI) (06/15/20) Hyperlipidemia History of left heart catheterization (06/15/20) Atypical chest pain Home Medications ?Medication ?Instructions ?Recorded ?Last Taken ?Type aspirin 81 mg chewable tablet 81 mg PO DAILY@0800 05/25/20 02/07/25 Rx apixaban 5 mg tablet 5 mg PO BID #180 tabs 07/01/20 02/05/25 Rx diltiazem HCl 120 mg capsule,24 120 mg PO DAILY #90 caps 05/27/24 02/11/25 06:00 Rx hr,extended release vitamin B complex (Vitamins B 1 tab PO DAILY 12/18/24 Unknown History Complex tablet) pantoprazole 40 mg tablet,delayed 40 mg PO QDAY #30 tabs 01/20/25 Unknown Rx release Allergy/AdvReac Type Severity Reaction Status Date / Time No Known Allergies Allergy Verified 02/11/25 17:05 Family History Mother Heart disease Father Heart disease Brother Heart disease Surgical History History of surgery on extremity H/O: hysterectomy History of dilatation and curettage Hx of appendectomy Social History Smoking Status: Never smoker alcohol intake: never substance use type: does not use caffeine: No ROS ROS ED ROS Narrative Denies recent illness. Constitutional Constitutional ED: Denies chills or fever(s) ENT ENT ED: Denies ear pain Cardiovascular Cardiovascular: Denies chest pain Respiratory/Chest Respiratory/Chest: Denies cough Gastrointestinal Gastrointestinal: Denies abdominal pain, diarrhea, nausea or vomiting Genitourinary Genitourinary ED: Denies dysuria or hematuria Musculoskeletal Musculoskeletal: Denies arthralgias or back pain Integumentary Denies abscess Neurologic Neurologic: Denies headache(s) Psychiatric Psychiatric: Denies anxiety Endocrine Endocrinology: Denies polydipsia Hematologic/Lymphatic Hematologic/Lymphatic: Denies lymphadenopathy Allergic/Immunologic Allergic/Immunologic ED: Denies mouth swelling, tongue swelling or urticaria EXAM Physical Exam Narrative Exam Narrative: 84-year-old female vital signs are stable afebrile. No acute distress. Family at bedside. H EENT exam pupils round react light. Moist mutes members. Neck nontender no JVD. Lungs clear to auscultation. Heart rate about 100 no murmur. Chest wall ribs nontender. Abdomen soft nontender. No peritoneal signs. No obstruction. Moving all 4 extremities. Nontender no edema. No bruising. Back nontender. Neurologically she is awake alert. Answering questions following commands. Const Vital Signs: 02/11/25 17:03 Temperature 97.4 F L Temperature Source Oral Pulse Rate 105 H Respiratory Rate 16 Blood Pressure 139/101 H Blood Pressure Mean 113 Pulse Ox 97 Oxygen Delivery Method Room Air MDM MDM MDM Narrative Medical decision making narrative: 84-year-old female rectal bleeding intermittent several times a day after having a colonoscopy at polypectomy and biopsies. She was on Eliquis but stopped it last Sunday and has been on aspirin but stopped it last several days. Screening labs will be obtained. I will speak to her orientor for negative test results back. Repeat exam at 6:15 PM patient doing well. No active bleeding. Blood count looks good. I spoke to her GI doctor Dr. Melissa. He and I and the patient are comfortable with him being discharged home. With outpatient follow-up. He said his office will follow-up with her tomorrow. Patient knows to return if increasing bleeding or feeling worse. History & Record Review Discussion w/independent historian: Patient and Family Additional record(s) reviewed:: Prior inpatient record and Prior labs Lab Data Attestation: I reviewed the patient's lab results. Lab results narrative: CBC unremarkable white count of 7. H&H 14.9 and 44. Platelets 310. Better than prior labs. BMP shows a gap of 12. BUN/creatinine 21. Glucose 161. Labs: Laboratory Results - last 24 hr 02/11/25 17:30 WBC 7.2 RBC 4.57 Hgb 14.9 Hct 44.1 MCV 96.5 MCH 32.6 H MCHC 33.8 RDW Std Deviation 50.4 H RDW Coeff of Haim 14.1 Plt Count 310 MPV 11.1 Sodium 139 Potassium 4.4 Chloride 102 Carbon Dioxide 25.3 Anion Gap 12 BUN 20 H Creatinine 1.02 Estim Creat Clear Calc 35.18 L Est GFR (MDRD) Non-Af 55 L BUN/Creatinine Ratio 19.8 Glucose 161 H Calcium 9.7 Discharge Plan Triage Chief Complaint: GI Bleed ED Provider: Blaze Dsouza Dx/Rx/DC Orders Clinical Impression: Rectal bleeding, History of colonoscopy, History of chronic atrial fibrillation, Chronic anticoagulation Instructions: ED Lower GI Bleeding (Stable) Prescriptions: No Action apixaban 5 mg tablet 5 mg PO BID Qty: 180 3RF diltiazem HCl 120 mg capsule,extended release 24hr 120 mg PO DAILY Qty: 90 3RF pantoprazole 40 mg tablet,delayed release (DR/EC) 40 mg PO QDAY Qty: 30 3RF aspirin 81 MG tablet,chewable 81 mg PO DAILY@0800 0RF vitamin B complex [Vitamins B Complex] Tablet 1 tab PO DAILY Primary Care Provider: Laura Khan HVAC CONTROLS TECHNICIAN Referrals: Marcel Melissa DO [Med Staff - Active Staff, Gastroenterology] - 1 Day Referral Note: Call and follow-up with their office tomorrow. Laura Khan HVAC CONTROLS TECHNICIAN, HVAC CONTROLS TECHNICIAN-C [Primary Care Provider, Medical] Activity Restrictions/Additional Instructions: Hold your aspirin and your Eliquis for 2 more days. If you have worsening bleeding or feeling worse return. You may have small episodes of bleeding that is okay. Call and follow-up with Dr. Melissa's office tomorrow. I spoke with him on the phone tonight. He is comfortable with you being discharged to home. Print Language: Kyrgyz Disposition Disposition: Home, Self Care
[2025-02-11 18:02] LABS: Hematocrit 44.1 % (37-47); Hemoglobin 14.9 g/dL (12.0-15.0); Mean Corp Hgb Conc 33.8 g/dL (32-36); Mean Corpuscular Volume 96.5 fL (81-99); Mean Platelet Vol. 11.1 fl (6.2-12.0); Platelet Count 310 K/mm3 (150-450); RBC Distribution Width CV 14.1 % (11.6-14.6); RBC Distribution Width SD 50.4 fl (35.1-43.9); Red Blood Count 4.57 M/mm3 (4.2-5.4); White Blood Count 7.2 K/mm3 (4.4-11.0)
[2025-02-11 18:26] LABS: Anion Gap 12 (5-15); BUN 20 mg/dL (4-19); BUN/Creat Ratio 19.8 RATIO (10-20); Calcium,Total 9.7 mg/dL (7.6-11.0); Carbon Dioxide 25.3 mmol/L (21.0-32.0); Chloride 102 mmol/L (98-108); Estimated Creatinine Clearance 35.18 ml/min (50-250); Glucose 161 mg/dL (70-99); Potassium 4.4 mmol/L (3.3-5.1)
[2025-02-11 18:57] VITALS: BP 136/98; PULSE 88; RESP 18; TEMP 36.8; O2SAT 98
== END 2025-02-11 18:58 | disposition home or self-care (01) ==
PROVIDERS: Emergency Provider Emergency Medicine; PCP Nurse Practitioner Family; Visit Provider Emergency Medicine
DX: K62.5 Hemorrhage of anus and rectum (principal); I48.20 Chronic atrial fibrillation, unspecified; E78.5 Hyperlipidemia, unspecified; I25.10 Atherosclerotic heart disease of native coronary artery without angina pectoris; Z79.01 Long term (current) use of anticoagulants; Z79.82 Long term (current) use of aspirin; Z86.73 Personal history of transient ischemic attack (TIA), and cerebral infarction without residual deficits; I25.2 Old myocardial infarction; Z90.710 Acquired absence of both cervix and uterus; Z90.49 Acquired absence of other specified parts of digestive tract
CPT/HCPCS: 80048; 85027; 99283